=== PATIENT | female | born 1945 | race African-American/Black ===

== ENCOUNTER 2018-06-04 22:53 | Emergency (ER) | payer OTHER ==
[2018-06-04] MEDS ORDERED: ALBUTEROL 2.5 MG/3 ML NEB SOL ONE (23:45)
[2018-06-04] MEDS ORDERED: IPRATROPIUM BROM 0.5MG/2.5ML ONE (23:45)
[2018-06-04] MEDS ORDERED: ONDANSETRON 4 MG/2 ML VIAL ONE (23:45)
[2018-06-05 00:37] LABS: Absolute Lymphocytes (CBC) 2.8 K/uL (0.7-4.9); Absolute Monocytes 0.8 K/uL (0.1-1.3); Absolute Neutrophil 8.6 K/uL (1.8-8.0); Basophils % 0.5 % (0-1.3); Eosinophils % 1.9 % (0-4.4); Hematocrit 26.3 % (36.0-45.0); Lymphocytes % 22.4 % (15.3-44.8); MCH 25.8 pg (27.0-35.0); MCV 79.9 fL (80-100); MPV 9.1 fL (7.6-11.3); Monocytes % 6.1 % (3.3-12.3); RBC Red Blood Cell Count 3.28 M/uL (3.86-4.86)
[2018-06-05 00:38] LABS: Protime INR 1.04
[2018-06-05 00:55] LABS: Albumin 3.6 g/dL (3.4-5.0); Bilirubin Direct 0.1 mg/dL (0-0.2); Bilirubin Total 0.4 mg/dL (0.2-1.0); Magnesium 1.6 mg/dL (1.8-2.4); Protein, Total 7.9 g/dL (6.4-8.2)
[2018-06-05] MEDS ORDERED: NA CHLORIDE 0.9% 1,000 ML ONE (00:58)
[2018-06-05] MEDS ORDERED: POTASSIUM 25 MEQ EFFERV TAB ONE (01:15)
[2018-06-05] MEDS ORDERED: Magnesium Sulfate 2gm IVPB 2 G/50 ML BAG IV ONE (01:16)
[2018-06-05] MEDS ORDERED: NA CHLORIDE 0.9% 100 ML IV ONE (01:35)
[2018-06-05] MEDS ORDERED: MORPHINE 4 MG/ML SYR ONE (01:35)
[2018-06-05] MEDS ORDERED: ONDANSETRON 4 MG/2 ML VIAL ONE (01:37)
--- NOTE | 2018-06-05 03:24 | ER ---
Nurse's Notes [facility] Name: Meredith King Age: 72 yrs Sex: Female : 1945 Arrival Date: 06/04/2018 Time: 22:54 Bed 15 Private MD: Diagnosis: Vomiting;Dehydration;Chronic obstructive pulmonary disease with (acute) exacerbation;Anemia, unspecified;Bladder disorder, unspecified Presentation: 06/04 23:00 Presenting complaint: Patient states: she started feeling sick yesterday and vomited x bb 1 but today she is feeling worse has been vomiting all day and is having chest pain with shortness of breath. Transition of care: patient was not received from another setting of care. Onset of symptoms was June 03, 2018. Risk Assessment: Do you want to hurt yourself or someone else? Patient reports no desire to harm self or others. Initial Sepsis Screen: Does the patient meet any 2 criteria? No. Patient's initial sepsis screen is negative. Does the patient have a suspected source of infection? No. Patient's initial sepsis screen is negative. Care prior to arrival: None. 23:00 Method Of Arrival: Ambulatory bb 23:00 Acuity: ALYSE 3 bb Historical: - Allergies: 23:16 No Known Allergies; bb - Home Meds: 23:16 glyburide 5 mg Oral tab 1 tab 2 times per day [Active]; Bystolic oral oral [Active]; bb unable to obtain full list of medications [Active]; - PMHx: 23:16 Arthritis; Chronic pain; Diabetes - NIDDM; Hypertension; bb - PSHx: 23:16 Cholecystectomy; Knee surgery; Appendectomy; bb - Immunization history:: Adult Immunizations up to date. - Social history:: Smoking status: Patient/guardian denies using tobacco, Patient/guardian denies using alcohol, street drugs. - Ebola Screening: : No symptoms or risks identified at this time. Screenin/19 00:18 Abuse screen: Denies threats or abuse. Nutritional screening: No deficits noted. jd3 Tuberculosis screening: No symptoms or risk factors identified. Fall Risk Ambulatory Aid- None/Bed Rest/Nurse Assist (0 pts). Gait- Normal/Bed Rest/Wheelchair (0 pts) Mental Status- Oriented to own ability (0 pts). Total Fishman Fall Scale indicates No Risk (0-24 pts). Assessment: 06/04 23:17 General: Appears uncomfortable, Behavior is cooperative, appropriate for age. Pain: jd3 Complains of pain in chest Pain does not radiate. Quality of pain is described as pressure, sharp, Pain began 1 day ago. Also complains of nausea, shortness of breath. Neuro: Level of Consciousness is awake, alert, obeys commands, Oriented to person, place, time, situation. Cardiovascular: Heart tones S1 S2 present Capillary refill < 3 seconds Patient's skin is warm and dry. Rhythm is sinus rhythm with PACs. Respiratory: Airway is patent Respiratory effort is even, unlabored, Respiratory pattern is regular, symmetrical, Breath sounds with wheezes bilaterally. GI: Abdomen is round obese, Bowel sounds present X 4 quads. Abd is soft and non tender X 4 quads. Reports nausea, vomiting. : No signs and/or symptoms were reported regarding the genitourinary system. EENT: No signs and/or symptoms were reported regarding the EENT system. Derm: Skin is intact, Skin is dry, Skin is normal, Skin temperature is warm. Musculoskeletal: Circulation, motion, and sensation intact. Range of motion: intact in all extremities. 06/05 00:30 Reassessment: Patient appears in no apparent distress at this time. No changes from jd3 previously documented assessment. Patient and/or family updated on plan of care and expected duration. Pain level reassessed. Patient is alert, oriented x 3, equal unlabored respirations, skin warm/dry/pink. 01:04 Reassessment: Patient appears in no apparent distress at this time. Patient and/or jd3 family updated on plan of care and expected duration. Pain level reassessed. Patient is alert, oriented x 3, equal unlabored respirations, skin warm/dry/pink. pt requesting medication for pain, provider notified, no new orders at this time. 02:00 Reassessment: Patient appears in no apparent distress at this time. Patient and/or jd3 family updated on plan of care and expected duration. Pain level reassessed. Patient is alert, oriented x 3, equal unlabored respirations, skin warm/dry/pink. 03:02 Reassessment: Patient appears in no apparent distress at this time. Patient and/or jd3 family updated on plan of care and expected duration. Pain level reassessed. Patient is alert, oriented x 3, equal unlabored respirations, skin warm/dry/pink. Patient states feeling better. 03:54 Reassessment: Patient appears in no apparent distress at this time. Patient and/or jd3 family updated on plan of care and expected duration. Pain level reassessed. Patient is alert, oriented x 3, equal unlabored respirations, skin warm/dry/pink. pt reported understanding of the discharge instructions, even and steady gait upon discharge. Patient states feeling better. Vital Signs: 06/04 23:16 BP 137 / 44; Pulse 90; Resp 20 S; Temp 98.3(O); Pulse Ox 97% on R/A; Weight 81.65 kg bb (R); Height 5 ft. 4 in. (162.56 cm) (R); Pain 10/10; 06/05 00:30 BP 90 / 67; Pulse 88; Resp 18 S; Pulse Ox 98% on R/A; jd3 01:04 BP 102 / 75; Pulse 85; Resp 18 S; Pulse Ox 100% on R/A; jd3 01:59 BP 138 / 73; Pulse 85; Resp 17 S; Pulse Ox 100% on R/A; jd3 03:55 BP 139 / 96; Pulse 89; Resp 17 S; Pulse Ox 98% on R/A; Pain 0/10; jd3 06/04 23:16 Body Mass Index 30.90 (81.65 kg, 162.56 cm) bb ED Course: 06/04 22:54 Patient arrived in ED. al2 23:01 Ramone Franklin MD is Attending Physician. gs 23:02 Emanuel Valderrama RN is Primary Nurse. jd3 23:06 EKG completed in triage. Results shown to MD. bb 23:13 Triage completed. bb 23:16 Arm band placed on Patient placed in an exam room, on a stretcher, on cardiac cath tech, bb on pulse oximetry. 23:35 XRAY Chest (1 view) In Process Unspecified. EDMS 06/05 00:04 Missed attempt(s): 22 gauge in right hand. Bleeding controlled, band aid applied, bb catheter tip intact. 00:18 Patient has correct armband on for positive identification. Placed in gown. Bed in low jd3 position. Call light in reach. Side rails up X2. kiln operator helper on. Pulse ox on. NIBP on. 00:18 Patient maintains SpO2 saturation greater than 95% on room air. jd3 00:30 Missed attempt(s): 18 gauge in left upper arm. midline - blood return present as long fc as 3 cm of line out. Would not thread in all the way. Line removed.. Bleeding controlled, band aid applied, catheter tip intact. 00:45 Inserted saline lock: 18 gauge in left antecubital area, using aseptic technique. fc 02:15 CT Stone Protocol In Process Unspecified. EDMS 03:46 No provider procedures requiring assistance completed. jd3 03:56 IV discontinued, intact, bleeding controlled, No redness/swelling at site. Pressure jd3 dressing applied. Administered Medications: 06/04 23:45 Drug: Albuterol 2.5 mg Route: Inhalation; jd3 06/05 01:19 Follow up: Response: No adverse reaction jd3 06/04 23:45 Drug: AtroVENT Aerosol 0.5 mg Route: Inhalation; jd3 06/05 01:19 Follow up: Response: No adverse reaction jd3 00:35 Drug: Zofran 4 mg Route: IVP; Site: left antecubital; jd3 01:01 Follow up: Response: No adverse reaction jd3 01:00 Drug: NS 0.9% 1000 ml Route: IV; Rate: 1 bolus; Site: left antecubital; jd3 03:46 Follow up: Response: No adverse reaction; IV Status: Completed infusion; IV Intake: jd3 1000ml 01:19 Drug: Magnesium Sulfate 2 grams Route: IVPB; Infused Over: 2 hrs; Site: left jd3 antecubital; 03:46 Follow up: Response: No adverse reaction; IV Status: Completed infusion jd3 01:19 Drug: Potassium Effervescent Tablet 50 mEq Route: PO; jd3 03:45 Follow up: Response: No adverse reaction jd3 01:43 Drug: morphine 2 mg Route: IVP; Site: left antecubital; jd3 03:45 Follow up: Response: No adverse reaction jd3 01:43 Drug: Zofran 4 mg Route: IVP; Site: left antecubital; jd3 03:45 Follow up: Response: No adverse reaction jd3 Intake: 03:46 IV: 1000ml; Total: 1000ml. jd3 Outcome: 03:23 Discharge ordered by . gs 03:55 Discharged to home ambulatory. jd3 03:55 Condition: stable 03:55 Discharge instructions given to patient, Instructed on discharge instructions, follow up and referral plans. medication usage, Demonstrated understanding of instructions, follow-up care, medications, Prescriptions given X 2. 04:03 Patient left the ED. jd3 Signatures: Dispatcher [employer] EDMS Colleen Matias RN RN fc Ballard, Brenda, RN RN bb Starr, Gregory, MD MD gs Davies, Jonathon, RN RN jd3 Love, Capri jackson
--- NOTE | 2018-06-05 03:24 | EDPHYS ---
Physician Documentation [facility] Name: Meredith King Age: 72 yrs Sex: Female : 1945 Arrival Date: 06/04/2018 Time: 22:54 Bed 15 Private MD: ED Physician Ramone Franklin HPI: 06/05 01:51 This 72 yrs old Black Female presents to ER via Ambulatory with complaints of Chest gs Pain, Nausea/Vomiting, Headache. 01:51 The patient or guardian reports chest pain that is located primarily in the epigastric gs area, anterior chest wall. Onset: yesterday. Associated signs and symptoms: Pertinent positives: vomiting. The chest pain is described as a pressure. Duration: The patient or guardian reports multiple episodes, that are intermittent, that wax and wane, with no pattern. Modifying factors: The symptoms are alleviated by nothing. the symptoms are aggravated by nothing. Severity of pain: At its worst the pain was moderate in the emergency department the pain has improved mildly. The patient has experienced similar episodes in the past, a few times. Historical: - Allergies: 06/04 23:16 No Known Allergies; bb - Home Meds: 23:16 glyburide 5 mg Oral tab 1 tab 2 times per day [Active]; Bystolic oral oral [Active]; bb unable to obtain full list of medications [Active]; - PMHx: 23:16 Arthritis; Chronic pain; Diabetes - NIDDM; Hypertension; bb - PSHx: 23:16 Cholecystectomy; Knee surgery; Appendectomy; bb - Immunization history:: Adult Immunizations up to date. - Social history:: Smoking status: Patient/guardian denies using tobacco, Patient/guardian denies using alcohol, street drugs. - Ebola Screening: : No symptoms or risks identified at this time. ROS: 06/05 01:51 All other systems are negative. gs Exam: 01:51 Head/Face: Normocephalic, atraumatic. Eyes: Pupils equal round and reactive to light, gs extra-ocular motions intact. Lids and lashes normal. Conjunctiva and sclera are non-icteric and not injected. Cornea within normal limits. Periorbital areas with no swelling, redness, or edema. ENT: Nares patent. No nasal discharge, no septal abnormalities noted. Tympanic membranes are normal and external auditory canals are clear. Oropharynx with no redness, swelling, or masses, exudates, or evidence of obstruction, uvula midline. Mucous membranes moist. Neck: Trachea midline, no thyromegaly or masses palpated, and no cervical lymphadenopathy. Supple, full range of motion without nuchal rigidity, or vertebral point tenderness. No Meningismus. Chest/axilla: Normal chest wall appearance and motion. Nontender with no deformity. No lesions are appreciated. Cardiovascular: Regular rate and rhythm with a normal S1 and S2. No gallops, murmurs, or rubs. Normal PMI, no JVD. No pulse deficits. Skin: Warm, dry with normal turgor. Normal color with no rashes, no lesions, and no evidence of cellulitis. MS/ Extremity: Pulses equal, no cyanosis. Neurovascular intact. Full, normal range of motion. Neuro: Awake and alert, GCS 15, oriented to person, place, time, and situation. Cranial nerves II-XII grossly intact. Motor strength 5/5 in all extremities. Sensory grossly intact. Cerebellar exam normal. Normal gait. 01:51 Constitutional: The patient appears alert, awake. 01:51 Respiratory: Exam negative for the patient does not display signs of respiratory distress, Respirations: normal, Breath sounds: rhonchi, that are mild, are scattered. 01:51 Abdomen/GI: Palpation: mild abdominal tenderness, in all quadrants. Vital Signs: 06/04 23:16 BP 137 / 44; Pulse 90; Resp 20 S; Temp 98.3(O); Pulse Ox 97% on R/A; Weight 81.65 kg bb (R); Height 5 ft. 4 in. (162.56 cm) (R); Pain 10/10; 06/05 00:30 BP 90 / 67; Pulse 88; Resp 18 S; Pulse Ox 98% on R/A; jd3 01:04 BP 102 / 75; Pulse 85; Resp 18 S; Pulse Ox 100% on R/A; jd3 01:59 BP 138 / 73; Pulse 85; Resp 17 S; Pulse Ox 100% on R/A; jd3 03:55 BP 139 / 96; Pulse 89; Resp 17 S; Pulse Ox 98% on R/A; Pain 0/10; jd3 06/04 23:16 Body Mass Index 30.90 (81.65 kg, 162.56 cm) bb MDM: 06/04 23:13 Patient medically screened. 06/05 01:51 Differential diagnosis: cholecystitis, pneumonia, pancreatitis. Data reviewed: vital gs signs, nurses notes. 03:16 Response to treatment: the patient's symptoms have markedly improved after treatment, gs the patient's condition has returned to base line, and as a result, I will discharge patient. 03:44 ED course: pt states she has bladder problems and is seeing a doctor for it is able to gs void still has significant residual doesn't want johnston will follow up with person she sees for this problem. 06/04 23:15 Order name: Basic Metabolic Panel; Complete Time: 01:09 06/04 23:15 Order name: CBC with Diff; Complete Time: 00:41 06/04 23:15 Order name: LFT's; Complete Time: 01:09 06/04 23:15 Order name: Magnesium; Complete Time: 01:09 06/04 23:15 Order name: NT PRO-BNP; Complete Time: 01:09 06/04 23:15 Order name: PT-INR; Complete Time: 00:41 06/04 23:15 Order name: Troponin (emerg Dept Use Only); Complete Time: 01:09 06/04 23:15 Order name: XRAY Chest (1 view) 06/04 23:15 Order name: Lipase; Complete Time: 01:09 06/05 01:30 Order name: CT Stone Protocol 06/05 03:36 Order name: Urine Dipstick--Ancillary (enter results); Complete Time: 03:44 ks 06/04 23:15 Order name: EKG; Complete Time: 23:16 06/04 23:15 Order name: Cardiac monitoring; Complete Time: 23:39 06/04 23:15 Order name: EKG - Nurse/Tech; Complete Time: 23:39 06/04 23:15 Order name: IV Saline Lock; Complete Time: 00:43 06/04 23:15 Order name: Labs collected and sent; Complete Time: 00:35 06/04 23:15 Order name: O2 Per Protocol; Complete Time: 23:39 06/04 23:15 Order name: O2 Sat Monitoring; Complete Time: 23:39 06/04 23:15 Order name: Urine Dipstick-Ancillary (obtain specimen); Complete Time: 03:54 gs Administered Medications: 06/04 23:45 Drug: Albuterol 2.5 mg Route: Inhalation; jd3 06/05 01:19 Follow up: Response: No adverse reaction jd3 06/04 23:45 Drug: AtroVENT Aerosol 0.5 mg Route: Inhalation; jd3 06/05 01:19 Follow up: Response: No adverse reaction jd3 00:35 Drug: Zofran 4 mg Route: IVP; Site: left antecubital; jd3 01:01 Follow up: Response: No adverse reaction jd3 01:00 Drug: NS 0.9% 1000 ml Route: IV; Rate: 1 bolus; Site: left antecubital; jd3 03:46 Follow up: Response: No adverse reaction; IV Status: Completed infusion; IV Intake: jd3 1000ml 01:19 Drug: Magnesium Sulfate 2 grams Route: IVPB; Infused Over: 2 hrs; Site: left [facility] antecubital; 03:46 Follow up: Response: No adverse reaction; IV Status: Completed infusion jd3 :19 Drug: Potassium Effervescent Tablet 50 mEq Route: PO; jd3 03:45 Follow up: Response: No adverse reaction jd3 01:43 Drug: morphine 2 mg Route: IVP; Site: left antecubital; jd3 03:45 Follow up: Response: No adverse reaction jd3 01:43 Drug: Zofran 4 mg Route: IVP; Site: left antecubital; jd3 03:45 Follow up: Response: No adverse reaction [facility] Disposition: 06/05/18 03:23 Discharged to Home. Impression: Vomiting, Dehydration, Chronic obstructive pulmonary disease with (acute) exacerbation, Anemia, unspecified, Bladder disorder, unspecified. - Condition is Stable. - Discharge Instructions: Iron Deficiency Anemia, Adult, Chronic Obstructive Pulmonary Disease, Dehydration, Adult, Nausea and Vomiting, Adult. - Prescriptions for Zofran 4 mg Oral Tablet - take 1 tablet by ORAL route every 12 hours As needed; 6 tablet. Albuterol Sulfate 2.5 mg /3 mL (0.083 %) Inhalation Solution for Nebulization - inhale 1 unit by NEBULIZATION route every 8 hours As needed; 1 box. - Medication Reconciliation Form, Thank You Letter, Antibiotic Education, Prescription Opioid Use form. - Follow up: Private Physician; When: 2 - 3 days; Reason: Re-evaluation by your physician. Signatures: Dispatcher [employer] EDIbis Carmona RN RN bb Starr, Gregory, MD MD gs Davies, Jonathon, RN RN jd3 Corrections: (The following items were deleted from the chart) 03:26 03:23 06/05/2018 03:23 Discharged to Home. Impression: Vomiting; Dehydration; Chronic gs obstructive pulmonary disease with (acute) exacerbation. Condition is Stable. Forms are Medication Reconciliation Form, Thank You Letter, Antibiotic Education, Prescription Opioid Use. Follow up: Private Physician; When: 2 - 3 days; Reason: Re-evaluation by your physician. 03:46 03:26 06/05/2018 03:23 Discharged to Home. Impression: Vomiting; Dehydration; Chronic gs obstructive pulmonary disease with (acute) exacerbation; Anemia, unspecified. Condition is Stable. Discharge Instructions: Chronic Obstructive Pulmonary Disease, Dehydration, Adult, Nausea and Vomiting, Adult. Prescriptions for Zofran 4 mg Oral Tablet - take 1 tablet by ORAL route every 12 hours As needed; 6 tablet, Albuterol Sulfate 2.5 mg /3 mL (0.083 %) Inhalation Solution for Nebulization - inhale 1 unit by NEBULIZATION route every 8 hours As needed; 1 box. and Forms are Medication Reconciliation Form, Thank You Letter, Antibiotic Education, Prescription Opioid Use. Follow up: Private Physician; When: 2 - 3 days; Reason: Re-evaluation by your physician. 04:03 03:46 06/05/2018 03:23 Discharged to Home. Impression: Vomiting; Dehydration; Chronic jd3 obstructive pulmonary disease with (acute) exacerbation; Anemia, unspecified; Bladder disorder, unspecified. Condition is Stable. Discharge Instructions: Chronic Obstructive Pulmonary Disease, Dehydration, Adult, Nausea and Vomiting, Adult, Iron Deficiency Anemia, Adult. Prescriptions for Zofran 4 mg Oral Tablet - take 1 tablet by ORAL route every 12 hours As needed; 6 tablet, Albuterol Sulfate 2.5 mg /3 mL (0.083 %) Inhalation Solution for Nebulization - inhale 1 unit by NEBULIZATION route every 8 hours As needed; 1 box. and Forms are Medication Reconciliation Form, Thank You Letter, Antibiotic Education, Prescription Opioid Use. Follow up: Private Physician; When: 2 - 3 days; Reason: Re-evaluation by your physician.
[2018-06-05 03:43] LABS: Urine Blood NEGATIVE (NEG); Urine Glucose NEGATIVE (NEG); Urine Protein NEGATIVE (NEG)
[2018-06-05 04:14] VITALS: TEMP 98.3
[2018-06-05 04:18] VITALS: BP 139/96; O2SAT 98
--- NOTE | 2018-06-05 08:17 | RAD REPORT ---
EXAM DESCRIPTION: CT - Stone Protocol - 06/05/2018 6:45 am CLINICAL HISTORY: Abdominal pain. Nausea and vomiting. Surgery date 6+ months appendectomy COMPARISON: 2014 TECHNIQUE: Computed axial tomography of the abdomen pelvis was obtained without oral or IV contrast. Lack of IV and oral contrast limits evaluation of solid organs, bowel, and vessels. Coronal reformat ernestina images were obtained and reviewed. A preliminary report was generated by [employer] and r amandaiewed prior to this dictation All CT scans are performed using dose optimization technique as appropriate and may include automated exposure control or mA/KV adjustment according to patient size. FINDINGS: A renal calculus is not seen. An ureteral calculus is not noted. A bladder calculus is not present. The bladder is distended. 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 A moderate hiatal hernia is seen A large amount stool is present throughout the colon The liver, spleen, pancreas and adrenals appear grossly normal There is no evidence of diverticulitis. Degenerative changes involve the lumbar spine. IMPRESSION: Negative for a genitourinary calculus Bladder distention Large amount stool throughout colon
--- NOTE | 2018-06-05 08:31 | RAD REPORT ---
EXAM DESCRIPTION: Alexandro Single View06/04/2018 11:36 pm CLINICAL HISTORY: Chest pain COMPARISON: December 2016 FINDINGS: The lungs appear clear of acute infiltrate. The heart is mildly enlarged IMPRESSION: No acute abnormalities displayed
--- NOTE | 2018-06-05 13:53 | EKG ---
Test Date: 2018-06-04 Test Time: 23:06:25 Straight Knife Cutter Machine: KAREY MEASUREMENT RESULTS: Intervals: Rate: 89 OK: 160 QRSD: 76 QT: 372 QTc: 452 [place]: P: 60 OK: 160 QRS: 45 T: 38 INTERPRETIVE STATEMENTS: Sinus rhythm with premature atrial complexes Possible Left atrial enlargement Borderline ECG Compared to ECG 01/10/2017 21:35:27 Atrial premature complex(es) now present Electronically Signed On 06-05-18 13:51:52 CDT by Bernard Carrasco
== END 2018-06-05 04:03 | disposition home or self-care (01) ==
LOC: ER 22:53
DX: E86.0 Dehydration (principal); J44.1 Chronic obstructive pulmonary disease with (acute) exacerbation; D64.9 Anemia, unspecified; N32.9 Bladder disorder, unspecified; I10 Essential (primary) hypertension; E11.9 Type 2 diabetes mellitus without complications
CPT/HCPCS: 36415; 71045; 74176; 76377; 80048; 80076; 81003; 83690; 83735; 83880; 84484; 85025; 85610; 93005; 96365; 96366; 96375; 99285; J2405 ×2; J3475; J7030; 96361

== ENCOUNTER 2019-02-06 12:09 | Observation (INO) | payer OTHER ==
[2019-02-06] MEDS ORDERED: MORPHINE 2 MG/ML SYR ONE (13:39)
[2019-02-06] MEDS ORDERED: ONDANSETRON 4 MG/2 ML VIAL ONE (13:39)
[2019-02-06] MEDS ORDERED: NA CHLORIDE 0.9% 1,000 ML ONE (13:39)
[2019-02-06] MEDS ORDERED: FAMOTIDINE 20 MG/2 ML VIAL IV ONE (13:39)
--- NOTE | 2019-02-06 14:01 | RAD REPORT ---
EXAM DESCRIPTION: CT - Head Brain Wo Cont - 02/06/2019 1:36 pm CLINICAL HISTORY: Persistent headache, low hemoglobin, hypertension COMPARISON: CT study November 2012 TECHNIQUE: Axial 5 mm thick images of the head were obtained without IV contrast. All CT scans are performed using dose optimization technique as appropriate and may include automated exposure control or mA/KV adjustment according to patient size. FINDINGS: No intracranial hemorrhage, mass, edema or shift of mid-line structures. No acute infarcti on changes seen. No abnormal extra-axial fluid collections. Ventricles are normal. Mild atrophy and c hronic ischemic changes are present matching the comparison. Arterial and physiologic calcifications are present. Mastoid air cells and visualized portions of the paranasal sinuses are clear. No acute bony findings. IMPRESSION: Negative non-contrast CT head examination for acute finding Mild atrophy and chronic ischemic change not significantly different from 2012.
--- NOTE | 2019-02-06 14:19 | RAD REPORT ---
EXAM DESCRIPTION: RAD - Chest Single View - 02/06/2019 2:11 pm CLINICAL HISTORY: Cough and congestion COMPARISON: May 2018 TECHNIQUE: AP portable chest image was obtained 1405 hours . FINDINGS: Lung volumes are low. No peripheral mass or consolidation. Interstitial markings are mildl y prominent but not clearly different. Heart and vasculature are normal. No measurable pleural effusi on and no pneumothorax. No acute bony abnormality seen. No acute aortic findings suspected. IMPRESSION: No acute cardiopulmonary process. Mild chronic interstitial lung disease matches comparison.
[2019-02-06 15:13] LABS: Protime INR 1.1
[2019-02-06 15:21] LABS: Absolute Lymphocytes (CBC) 2.8 K/uL (0.7-4.9); Absolute Monocytes 0.7 K/uL (0.1-1.3); Absolute Neutrophil 5.9 K/uL (1.8-8.0); Eosinophils % 2.6 % (0-4.4); Hematocrit 24.7 % (36.0-45.0); Lymphocytes % 28.4 % (15.3-44.8); MPV 8.9 fL (7.6-11.3); Monocytes % 7.5 % (3.3-12.3); RBC Red Blood Cell Count 3.15 M/uL (3.86-4.86)
[2019-02-06 15:38] LABS: ALT/SGPT 31 U/L (12-78); AST/SGOT 21 U/L (15-37); Albumin 3.7 g/dL (3.4-5.0); Alkaline Phosphatase 76 U/L (45-117); BUN Blood Urea Nitrogen 26 mg/dL (7-18); Bicarbonate 25 mmol/L (21-32); Bilirubin Direct 0.1 mg/dL (0-0.2); Bilirubin Total 0.4 mg/dL (0.2-1.0); Glucose Level 57 mg/dL (74-106); Lipase 39 U/L (73-393); Magnesium 1.9 mg/dL (1.8-2.4); NT PRO-BNP 303 pg/mL (<450); Potassium 3.8 mmol/L (3.5-5.1); Protein, Total 8.3 g/dL (6.4-8.2); Sodium Level 137 mmol/L (136-145); Troponin (Emerg Dept Use Only) < 0.02 ng/mL (0.0-0.045)
--- NOTE | 2019-02-06 15:52 | ER ---
Nurse's Notes [facility] Name: Meredith King Age: 73 yrs Sex: Female : 1945 Arrival Date: 02/06/2019 Time: 12:11 Bed 8 Private MD: Alan Liao Diagnosis: Weakness;Anemia, unspecified-microcytic, hypochromic, symptomatic;Obesity, unspecified;Type 2 diabetes mellitus;Hypoglycemia, unspecified Presentation: 02/06 12:25 Presenting complaint: Patient states: Dr. Liao did annual labs and sent me here because my Hemoglobin was 8. they said that was bad. I have had a headache for weeks. Transition of care: patient was not received from another setting of care. Onset of symptoms was December 2018. Risk Assessment: Do you want to hurt yourself or someone else? Patient reports no desire to harm self or others. Initial Sepsis Screen: Does the patient meet any 2 criteria? No. Patient's initial sepsis screen is negative. Does the patient have a suspected source of infection? No. Patient's initial sepsis screen is negative. Care prior to arrival: None. 12:25 Method Of Arrival: Wheelchair 12:25 Acuity: ALYSE 3 Triage Assessment: 12:27 General: Appears in no apparent distress. uncomfortable, Behavior is calm, cooperative, ch appropriate for age. Pain: Complains of pain in head Pain currently is 8 out of 10 on a pain scale. Neuro: Level of Consciousness is awake, alert, obeys commands, Oriented to person, place, time, situation. Historical: - Allergies: 12:27 No Known Drug Allergies; - Home Meds: 12:57 tramadol 50 mg Oral tab 2 tabs twice a day [Active]; acetaminophen-codeine 300-30 mg tw2 Oral tab 1 tab twice a day [Active]; amlodipine 10 mg tab 1 tab once daily [Active]; Bystolic Oral [Active]; cyclobenzaprine 10 mg Oral tab 1 tab 2 times per day [Active]; gabapentin 600 mg Oral tab 1 tab twice a day [Active]; glyburide 5 mg Oral tab 1 tab 2 times per day [Active]; lorazepam 0.5 mg Oral tab 1 tab 2 times per day [Active]; potassium chloride 10 mEq Oral cpER 1 cap once daily [Active]; promethazine 25 mg Oral tab 1 tab 2 times per day [Active]; - PMHx: 12:27 Arthritis; Diabetes - NIDDM; Chronic pain; Hypertension; "slight case of breathing ch issues,"; - PSHx: 12:27 Cholecystectomy; Knee surgery; Appendectomy; ch - Immunization history:: Adult Immunizations up to date. - Social history:: Smoking status: Patient/guardian denies using tobacco. - Ebola Screening: : Patient negative for fever greater than or equal to 101.5 degrees Fahrenheit, and additional compatible Ebola Virus Disease symptoms Patient denies exposure to infectious person Patient denies travel to an Ebola-affected area in the 21 days before illness onset No symptoms or risks identified at this time. Screenin:54 Abuse screen: Denies threats or abuse. Nutritional screening: No deficits noted. tw2 Tuberculosis screening: No symptoms or risk factors identified. Fall Risk Secondary diagnosis (15 points) impaired mobility. Assessment: 13:00 General: Appears in no apparent distress. Behavior is calm, cooperative. Pain: Pain hb currently is 8 out of 10 on a pain scale. Neuro: Level of Consciousness is awake, alert, obeys commands, Oriented to person, place, time, situation. Cardiovascular: Capillary refill < 3 seconds Patient's skin is warm and dry. Respiratory: Airway is patent Respiratory effort is even, unlabored, Respiratory pattern is regular, symmetrical, Breath sounds are clear bilaterally. GI: No signs and/or symptoms were reported involving the gastrointestinal system. : No signs and/or symptoms were reported regarding the genitourinary system. EENT: No signs and/or symptoms were reported regarding the EENT system. Derm: Skin is intact, is healthy with good turgor. Musculoskeletal: No signs and/or symptoms reported regarding the musculoskeletal system. 14:00 Reassessment: Patient appears in no apparent distress at this time. No changes from hb previously documented assessment. Patient and/or family updated on plan of care and expected duration. Pain level reassessed. Patient is alert, oriented x 3, equal unlabored respirations, skin warm/dry/pink. 14:38 Reassessment: Unable to establish PIV access, Dr. Nunez notified. hb 14:40 Reassessment: Dr. Nunez at bedside for PIV placement. 18g LEFT EJ. hb 15:30 Reassessment: Patient appears in no apparent distress at this time. Patient and/or hb family updated on plan of care and expected duration. Pain level reassessed. Patient is alert, oriented x 3, equal unlabored respirations, skin warm/dry/pink. 16:30 Reassessment: Patient appears in no apparent distress at this time. No changes from previously documented assessment. Patient and/or family updated on plan of care and expected duration. Pain level reassessed. Patient is alert, oriented x 3, equal unlabored respirations, skin warm/dry/pink. Admission ordered, awaiting room assignment at this time. Vital Signs: 12:27 BP 145 / 56; Pulse 65; Resp 18; Temp 98.7; Pulse Ox 99% on R/A; Weight 92.99 kg; Height 5 ft. 4 in. (162.56 cm); Pain 9/10; 14:00 BP 156 / 66; Pulse 64; Resp 15; Pulse Ox 100% on R/A; hb 15:30 BP 165 / 59; Pulse 65; Resp 16; Pulse Ox 97% on R/A; hb 12:27 Body Mass Index 35.19 (92.99 kg, 162.56 cm) ED Course: 12:11 Patient arrived in ED. rg4 12:11 Alan Liao MD is Private Physician. rg4 12:26 Triage completed. 12:27 Arm band placed on left wrist. Patient placed in waiting room. 12:52 Kenny Nunez MD is Attending Physician. [facility] 12:53 Bed in low position. Call light in reach. quality assurance monitor chassis on. Pulse ox on. NIBP on. tw2 13:36 CT completed. Patient tolerated procedure well. Patient moved to CT. Patient moved back wy from CT. 13:36 CT Head Brain wo Cont In Process Unspecified. EDMS 13:37 Kaycee Banks, RN is Primary Nurse. tw2 13:37 EKG done, by agricultural technical officer. reviewed by Kenny Nunez MD. sm3 13:48 Missed attempt(s): 22 gauge in right antecubital area. Bleeding controlled, band aid tw2 applied, catheter tip intact. Missed attempt(s): 22 gauge in right antecubital area. 13:58 Missed attempt(s): 22 gauge in left antecubital area. Bleeding controlled, band aid hb applied, catheter tip intact. 14:02 Missed attempt(s): 22 gauge in left antecubital area. Bleeding controlled, band aid hb applied, catheter tip intact. 14:11 XRAY Chest (1 view) In Process Unspecified. EDMS 14:12 X-ray completed. Portable x-ray completed in exam room. Patient tolerated procedure jb2 well. 14:34 Missed attempt(s): 22 gauge in left antecubital area. Per ANAID Dudley. Missed attempt(s): tw2 22 gauge in left forearm. per ANAID Dudley Dr. notified that we have no blood at this time and not able to establish IV access.. Bleeding controlled, band aid applied, catheter tip intact. 14:35 Missed attempt(s): 22 gauge in right antecubital area. Bleeding controlled, band aid iw applied, catheter tip intact. 15:50 Carlos Melendez DO is Referral Physician. june 15:53 Carlos Melendez DO is Hospitalizing Provider. june 17:06 No provider procedures requiring assistance completed. Patient admitted, IV remains in hb place. Administered Medications: 15:06 Drug: morphine 2 mg Route: IVP; Site: left jugular; hb 15:34 Follow up: Response: No adverse reaction tw2 15:07 Drug: NS 0.9% 1000 ml Route: IV; Rate: 125 ml/hr; Site: left jugular; hb 17:20 Follow up: IV Status: Infusion continued upon admission tw2 15:07 Drug: Zofran 4 mg Route: IVP; Site: left jugular; hb 15:34 Follow up: Response: No adverse reaction tw2 15:07 Drug: Pepcid 20 mg Route: PO; hb 15:34 Follow up: Response: No adverse reaction tw2 15:56 Drug: D50W 25 ml Route: IVP; Site: left jugular; hb 16:30 Follow up: Response: No adverse reaction; Blood pressure is elevated hb Point of Care Testing: Blood Glucose: 16:35 Blood Glucose: 89 mg/dL; tw2 Ranges: Outcome: 15:51 Discharge ordered by . june 15:58 Decision to Hospitalize by Provider. june 17:06 Admitted to Tele accompanied by tech, via wheelchair, room 411, with chart, Report hb called to Sunshine WORRELL 17:06 Condition: stable 17:06 Instructed on the need for admit, Demonstrated understanding of instructions. 17:32 Patient left the ED. hb Signatures: Dispatcher [employer] Radha Paz, RN RN Kenny Watkins MD MD cha Buechter, Jesse jb2 Octavia Graham RN RN iw Baxter, Heather, RN RN hb Wise, Tara, RN RN 2 Razia Mendez 4 Nicanor Chiu Shakira 3
--- NOTE | 2019-02-06 15:52 | EDPHYS ---
Physician Documentation [facility] Name: Meredith King Age: 73 yrs Sex: Female : 1945 Arrival Date: 02/06/2019 Time: 12:11 Bed 8 Private MD: Alan Liao ED Physician Kenny Nunez HPI: 02/06 13:26 This 73 yrs old Black Female presents to ER via Wheelchair with complaints of Abnormal june Lab Results. 13:26 The patient presents with anemia, no black stools. Onset: The symptoms/episode june began/occurred 3 day(s) ago. The patient presents to the emergency department none. Onset: The symptoms/episode began/occurred 3 day(s) ago. Abdominal pain: none is appreciated. Modifying factors: The symptoms are alleviated by nothing, the symptoms are aggravated by nothing. Historical: - Allergies: 12:27 No Known Drug Allergies; ch - Home Meds: 12:57 tramadol 50 mg Oral tab 2 tabs twice a day [Active]; acetaminophen-codeine 300-30 mg tw2 Oral tab 1 tab twice a day [Active]; amlodipine 10 mg tab 1 tab once daily [Active]; Bystolic Oral [Active]; cyclobenzaprine 10 mg Oral tab 1 tab 2 times per day [Active]; gabapentin 600 mg Oral tab 1 tab twice a day [Active]; glyburide 5 mg Oral tab 1 tab 2 times per day [Active]; lorazepam 0.5 mg Oral tab 1 tab 2 times per day [Active]; potassium chloride 10 mEq Oral cpER 1 cap once daily [Active]; promethazine 25 mg Oral tab 1 tab 2 times per day [Active]; - PMHx: 12:27 Arthritis; Diabetes - NIDDM; Chronic pain; Hypertension; "slight case of breathing ch issues,"; - PSHx: 12:27 Cholecystectomy; Knee surgery; Appendectomy; ch - Immunization history:: Adult Immunizations up to date. - Social history:: Smoking status: Patient/guardian denies using tobacco. - Ebola Screening: : Patient negative for fever greater than or equal to 101.5 degrees Fahrenheit, and additional compatible Ebola Virus Disease symptoms Patient denies exposure to infectious person Patient denies travel to an Ebola-affected area in the 21 days before illness onset No symptoms or risks identified at this time. ROS: 13:27 Constitutional: Negative for fever, chills, and weight loss, Eyes: Negative for injury, june pain, redness, and discharge, ENT: Negative for injury, pain, and discharge, Neck: Negative for injury, pain, and swelling, Cardiovascular: Negative for chest pain, palpitations, and edema, Respiratory: Negative for shortness of breath, cough, wheezing, and pleuritic chest pain, Abdomen/GI: Negative for abdominal pain, nausea, vomiting, diarrhea, and constipation, Back: Negative for injury and pain, : Negative for injury, bleeding, discharge, and swelling, MS/Extremity: Negative for injury and deformity, Skin: Negative for injury, rash, and discoloration, Psych: Negative for depression, anxiety, suicide ideation, homicidal ideation, and hallucinations, Allergy/Immunology: Negative for hives, rash, and allergies, Endocrine: Negative for neck swelling, polydipsia, polyuria, polyphagia, and marked weight changes, Hematologic/Lymphatic: Negative for swollen nodes, abnormal bleeding, and unusual bruising. 13:27 MS/extremity: Positive for 13:27 Neuro: Positive for headache. Exam: 13:27 Constitutional: This is a well developed, well nourished patient who is awake, alert, june and in no acute distress. Head/Face: Normocephalic, atraumatic. Eyes: Pupils equal round and reactive to light, extra-ocular motions intact. Lids and lashes normal. Conjunctiva and sclera are non-icteric and not injected. Cornea within normal limits. Periorbital areas with no swelling, redness, or edema. ENT: Nares patent. No nasal discharge, no septal abnormalities noted. Tympanic membranes are normal and external auditory canals are clear. Oropharynx with no redness, swelling, or masses, exudates, or evidence of obstruction, uvula midline. Mucous membranes moist. Neck: Trachea midline, no thyromegaly or masses palpated, and no cervical lymphadenopathy. Supple, full range of motion without nuchal rigidity, or vertebral point tenderness. No Meningismus. Chest/axilla: Normal chest wall appearance and motion. Nontender with no deformity. No lesions are appreciated. Cardiovascular: Regular rate and rhythm with a normal S1 and S2. No gallops, murmurs, or rubs. Normal PMI, no JVD. No pulse deficits. Respiratory: Lungs have equal breath sounds bilaterally, clear to auscultation and percussion. No rales, rhonchi or wheezes noted. No increased work of breathing, no retractions or nasal flaring. Abdomen/GI: Soft, non-tender, with normal bowel sounds. No distension or tympany. No guarding or rebound. No evidence of tenderness throughout. Back: No spinal tenderness. No costovertebral tenderness. Full range of motion. Skin: Warm, dry with normal turgor. Normal color with no rashes, no lesions, and no evidence of cellulitis. MS/ Extremity: Pulses equal, no cyanosis. Neurovascular intact. Full, normal range of motion. Neuro: Awake and alert, GCS 15, oriented to person, place, time, and situation. Cranial nerves II-XII grossly intact. Motor strength 5/5 in all extremities. Sensory grossly intact. Cerebellar exam normal. Normal gait. Psych: Awake, alert, with orientation to person, place and time. Behavior, mood, and affect are within normal limits. 13:27 Neck: ROM/movement: Meningeal signs: are not present, Kernig's sign is negative, Brudzinski's sign is negative. 13:27 Abdomen/GI: Bowel sounds: normal, active, Palpation: abdomen is soft and non-tender, soft, nontender, Rectal exam: is unremarkable, rectal tone normal, Stool: guaiac negative, hemorrhoid(s), are not appreciated, mass, is not appreciated, swelling, is not appreciated, tenderness, is not appreciated, fecal impaction, is not appreciated. Vital Signs: 12:27 BP 145 / 56; Pulse 65; Resp 18; Temp 98.7; Pulse Ox 99% on R/A; Weight 92.99 kg; Height ch 5 ft. 4 in. (162.56 cm); Pain 9/10; 14:00 BP 156 / 66; Pulse 64; Resp 15; Pulse Ox 100% on R/A; hb 15:30 BP 165 / 59; Pulse 65; Resp 16; Pulse Ox 97% on R/A; hb 12:27 Body Mass Index 35.19 (92.99 kg, 162.56 cm) Procedures: 15:10 Peripheral line: by aseptic technique a peripheral line was placed in the left external june jugular vein. [facility]: 12:52 Patient medically screened. [facility] 13:30 Data reviewed: vital signs, nurses notes, lab test result(s), EKG, radiologic studies. [facility] 02/06 13:24 Order name: Basic Metabolic Panel; Complete Time: 15:40 [facility] 02/06 13:24 Order name: CBC with Diff; Complete Time: 15:40 [facility] 02/06 13:24 Order name: LFT's; Complete Time: 15:40 [facility] 02/06 13:24 Order name: Magnesium; Complete Time: 15:40 [facility] 02/06 13:24 Order name: NT PRO-BNP; Complete Time: 15:40 [facility] 02/06 13:24 Order name: PT-INR; Complete Time: 15:40 [facility] 02/06 13:24 Order name: Troponin (emerg Dept Use Only); Complete Time: 15:40 [facility] 02/06 13:24 Order name: Urine Culture [facility] 02/06 13:24 Order name: Type And Screen [facility] 02/06 13:25 Order name: Lipase; Complete Time: 15:40 [facility] 02/06 15:41 Order name: Folic Acid,Serum (folate) [facility] 02/06 15:41 Order name: B12 [facility] 02/06 15:41 Order name: Retic Count [facility] 02/06 15:41 Order name: Ferritin [facility] 02/06 13:24 Order name: XRAY Chest (1 view); Complete Time: 15:40 [facility] 02/06 13:24 Order name: EKG; Complete Time: 13:25 [facility] 02/06 13:24 Order name: Cardiac monitoring; Complete Time: 13:28 [facility] 02/06 13:24 Order name: EKG - Nurse/Tech; Complete Time: 13:28 [facility] 02/06 13:24 Order name: IV Saline Lock; Complete Time: 15:07 [facility] 02/06 13:24 Order name: CT Head Brain wo Cont; Complete Time: 14:12 [facility] 02/06 15:41 Order name: TIBC [facility] 02/06 15:41 Order name: Iron Level [facility] 02/06 15:57 Order name: Packed RBC Leukored -1 EDMS 02/06 16:24 Order name: Urine Dipstick--Ancillary (enter results) 02/06 13:24 Order name: Labs collected and sent; Complete Time: 15:07 [facility] 02/06 13:24 Order name: O2 Per Protocol; Complete Time: 13:28 [facility] 02/06 13:24 Order name: O2 Sat Monitoring; Complete Time: 13:28 [facility] 02/06 13:24 Order name: Urine Dipstick-Ancillary (obtain specimen); Complete Time: 16:14 [facility] Administered Medications: 15:06 Drug: morphine 2 mg Route: IVP; Site: left jugular; hb 15:34 Follow up: Response: No adverse reaction tw2 15:07 Drug: NS 0.9% 1000 ml Route: IV; Rate: 125 ml/hr; Site: left jugular; hb 17:20 Follow up: IV Status: Infusion continued upon admission tw2 15:07 Drug: Zofran 4 mg Route: IVP; Site: left jugular; hb 15:34 Follow up: Response: No adverse reaction tw2 15:07 Drug: Pepcid 20 mg Route: PO; hb 15:34 Follow up: Response: No adverse reaction tw2 15:56 Drug: D50W 25 ml Route: IVP; Site: left jugular; hb 16:30 Follow up: Response: No adverse reaction; Blood pressure is elevated hb Point of Care Testing: Blood Glucose: 16:35 Blood Glucose: 89 mg/dL; tw2 Ranges: Critical Glucose Levels:Adult <50 mg/dl or >400 mg/dl <40 mg/dl or >180 mg/dl Disposition: 02/06/19 15:58 Hospitalization ordered by Carlos Melendez for Inpatient Admission. Preliminary diagnosis are Weakness, Anemia, unspecified - microcytic, hypochromic, symptomatic, Obesity, unspecified, Type 2 diabetes mellitus, Hypoglycemia, unspecified. - Bed requested for Telemetry/MedSurg (Inpatient). - Status is Inpatient Admission. hb - Condition is Fair. - Problem is new. - Symptoms have improved. UTI on Admission? No Signatures: Dispatcher [employer] EDMS Radha Kelly RN RN ch Anderson, Corey, MD MD cha Baxter, Heather, RN RN hb Wise, Tara, RN RN tw2 Moraima Lozano Corrections: (The following items were deleted from the chart) 15:53 15:51 02/06/2019 15:51 Discharged to Home. Impression: Weakness; Headache; Anemia, june unspecified - microcytic, hypochromic; Obesity, unspecified; Type 2 diabetes mellitus; Hypoglycemia, unspecified. Condition is Fair. Forms are Medication Reconciliation Form, Thank You Letter, Antibiotic Education, Prescription Opioid Use. Follow up: Carlos Melendez; When: 2 - 3 days; Reason: Recheck today's complaints, Continuance of care, Re-evaluation by your physician. Problem is new. Symptoms have improved. june 15:53 15:53 02/06/2019 15:51 Discharged to Home. Impression: Weakness; Headache; Anemia, june unspecified - microcytic, hypochromic, symtomatic; Obesity, unspecified; Type 2 diabetes mellitus; Hypoglycemia, unspecified. Condition is Fair. Forms are Medication Reconciliation Form, Thank You Letter, Antibiotic Education, Prescription Opioid Use. Follow up: Carlos Melendez; When: 2 - 3 days; Reason: Recheck today's complaints, Continuance of care, Re-evaluation by your physician. Problem is new. Symptoms have improved. [facility] 16:51 15:58 Hospitalization Ordered by Carlos Melendez DO for Inpatient Admission. Preliminary eb diagnosis is Weakness; Anemia, unspecified - microcytic, hypochromic, symptomatic; Obesity, unspecified; Type 2 diabetes mellitus; Hypoglycemia, unspecified. Bed requested for Telemetry/MedSurg (Inpatient). Status is Inpatient Admission. Condition is Fair. Problem is new. Symptoms have improved. UTI on Admission? No. [facility] 17:32 16:51 02/06/2019 15:58 Hospitalization Ordered by Carlos Melendez DO for Inpatient hb Admission. Preliminary diagnosis is Weakness; Anemia, unspecified - microcytic, hypochromic, symptomatic; Obesity, unspecified; Type 2 diabetes mellitus; Hypoglycemia, unspecified. Bed requested for Telemetry/MedSurg (Inpatient). Status is Inpatient Admission. Condition is Fair. Problem is new. Symptoms have improved. UTI on Admission? No. eb
[2019-02-06 15:56] LABS: RBC Red Blood Cell Count 3.09 M/uL (3.86-4.86)
[2019-02-06] MEDS ORDERED: D50W 25 GM/50 ML SYRINGE IV ONE (16:05)
[2019-02-06 16:30] LABS: Urine Blood NEGATIVE (NEG); Urine Glucose NEGATIVE (NEG); Urine Protein NEGATIVE (NEG)
[2019-02-06 16:31] LABS: Folic Acid, (Folate) 17.7 ng/mL (3.1-17.5)
--- NOTE | 2019-02-06 16:46 | P.HP ---
Certification for Inpatient Patient admitted to: Observation With expected LOS: <2 Midnights Patient will require the following post-hospital care: None Practitioner: I am a practitioner with admitting privileges, knowledge of patient current condition, hospital course, and medical plan of care. Services: Services provided to patient in accordance with Admission requirements found in Title 42 Section 412.3 of the Code of Federal Regulations Patient History Date of Service: 02/06/19 Primary Care Provider: Dr. Patel Reason for admission: Fatigue, headache History of Present Illness: 73-year-old female presented to the emergency room with increased fatigue and headache. She apparently went to her PCP office today. Lab was obtained. It was reported that she had a low hemoglobin. The patient was sent to the ER for further evaluation. She denies any rectal bleeding, melena. She denies any vomiting or coughing of blood. She denies any significant shortness of breath. No chest pain noted patient is seen by GI as an outpatient. It has been over 5 years since her last colonoscopy. In the ER patient evaluated. Blood pressure slightly elevated. Hemoglobin 7.8. White count 9.7, sodium 137, BUN of 26, creatinine 1.29 with a GFR 49. Glucose 57. Troponin unremarkable. Chest x-ray unremarkable. CT head negative. Guaiac study in the emergency room was negative. Patient was admitted for observation. When I saw the patient the ER, she had appeared stable. She denied any significant chest pain. Allergies No Known Drug Allergies Allergy (Verified 04/09/15 13:52) Unknown No Known Allergies Allergy (Uncoded 05/07/16 00:50) Unknown Home medications list reviewed: Yes Home Medications: Amlodipine [Norvasc*] 10 mg PO DAILY 01/11/17 Gabapentin 600 mg PO BID 01/11/17 LORazepam [Ativan*] 0.5 mg PO BID 01/11/17 Promethazine HCl 25 mg PO BID 01/11/17 Tramadol HCl [Ultram] 100 mg PO BID 01/11/17 glyBURIDE [Glyburide] 5 mg PO BID 01/11/17 Acetaminophen with Codeine [Acetaminophen-Cod #3 Tablet] 30 - 300 mg PO BID PRN #15 tablet 01/14/17 Multivit with Iron,Minerals [[facility]] 1 each PO DAILY #90 tablet 01/14/17 - Past Medical/Surgical History Diabetic: Yes -: Diabetes mellitus type 2 -: Hypertension -: COPD -: Osteoarthritis -: Depression with anxiety -: Diabetic neuropathy -: Anemia -: Chronic pain -: Cholecystectomy -: Appendectomy -: Knee surgery Psychosocial/ Personal History: Her son lives with her at home. She is a . She has 3 children. - Family History Family History: Reviewed- Non-Contributory - Social History Smoking Status: Never smoker Alcohol use: No CD- Drugs: No Caffeine use: Yes Place of Residence: Home Review of Systems General: Weakness, As per HPI Eyes: Unremarkable ENT: Unremarkable Respiratory: Unremarkable Cardiovascular: Light Headedness, As per HPI Gastrointestinal: Unremarkable Genitourinary: Unremarkable Musculoskeletal: Unremarkable Neurological: As per HPI Lymphatics: Unremarkable Physical Examination - Physical Exam General: Alert, In no apparent distress, Oriented x3, Cooperative HEENT: Atraumatic, Normocephalic, PERRLA, Other (Dry mucous membranes) Neck: Supple Respiratory: Clear to auscultation bilaterally, Normal air movement Cardiovascular: Normal pulses, Regular rate/rhythm Gastrointestinal: Normal bowel sounds, Soft and benign, Non-distended, No tenderness, No masses, No rebound, No guarding Musculoskeletal: No erythema, No tenderness, No warmth Integumentary: No tenderness/swelling, No erythema, No warmth, No cyanosis Neurological: Normal speech, Normal strength at 5/5 x4 extr, Normal tone, Normal affect - Studies Laboratory Data (last 24 hrs) 02/06/19 14:55: PT 12.9 H, INR 1.10 02/06/19 14:55: WBC 9.7 D, Hgb 7.8 L*, Hct 24.7 L, Plt Count 267 02/06/19 14:55: Sodium 137, Potassium 3.8, BUN 26 H, Creatinine 1.29, Glucose 57 L, Magnesium 1.9, Total Bilirubin 0.4, AST 21, ALT 31, Alkaline Phosphatase 76, Lipase 39 L Assessment and Plan - Plan Impression: Acute on chronic anemia likely from iron deficiency Diabetes mellitus type 2 with hypoglycemia Acute renal injury likely from dehydration and medication Hypertension Chronic pain COPD Plan: Acute on chronic anemia likely from iron deficiency: Patient will be admitted for observation. Will transfuse 1 unit and recheck. Patient should be on iron at discharge. Guaiac stool negative. Anticipate discharge in the next 24 hr. Will recommend patient to follow up with her beater tender for EGD colonoscopy in the next several weeks. Diabetes mellitus type 2 with hypoglycemia: Will review home medication. Will discontinue glimepiride. Will check A1c. Acute renal injury likely from dehydration and medication: Will provide IV fluids. Will review home medication to further adjust medication. Recommend no nonsteroidal anti-inflammatories. Hypertension: Will continue with home medication. May need to adjust medication. Chronic pain: Will provide medication as needed. COPD: Will provide medication. Maintain sats above 90 Discharge Plan: Home Plan to discharge in: 24 Hours - Advance Directives Does patient have a Living Will: No Does patient have a Durable POA for Healthcare: No - Code Status/Comfort Care Code Status Assessed: Yes (patient is full code) Time Spent Managing Pts Care (In Minutes): 55
[2019-02-06] MEDS ORDERED: HYDRALAZINE HCL 20 MG/ML VIAL IV PRN (17:41)
[2019-02-06] MEDS ORDERED: NA CHLORIDE 0.9% 1,000 ML IV SCH (17:41)
[2019-02-06] MEDS ORDERED: ACETAMINOPHEN 500 MG TAB PO PRN (17:41)
[2019-02-06] MEDS ORDERED: IPRATROPIUM BROM 0.5MG/2.5ML NEB PRN (17:41)
[2019-02-06] MEDS ORDERED: ALBUTEROL 2.5 MG/3 ML NEB SOL NEB PRN (17:41)
[2019-02-06] MEDS ORDERED: TRAMADOL HCL 50 MG TAB PO PRN (17:41)
[2019-02-06] MEDS ORDERED: D50W 25 GM/50 ML SYRINGE IV PRN (17:58)
[2019-02-06] MEDS ORDERED: GLUCAGON 1 MG/VIAL IM PRN (17:58)
[2019-02-06 18:20] LABS: Thyroid Stimulating Hormone 3.52 uIU/mL (0.360-3.740)
[2019-02-06 18:21] VITALS: BMI 26.3
[2019-02-06] MEDS: ARFORMOTEROL TARTRATE 15 MCG/2 ML VIAL.NEB NEB SCH (19:55)
[2019-02-06] MEDS: INSULIN -REGULAR HUMAN 50 UNIT/0.5 ML ML SQ SCH (20:11)
[2019-02-06] MEDS ORDERED: ONDANSETRON 4 MG/2 ML VIAL IV PRN (20:28)
--- NOTE | 2019-02-06 21:17 | EKG ---
Test Date: 2019-02-06 Test Time: 13:16:23 Support Engineer: OMI MEASUREMENT RESULTS: Intervals: Rate: 61 VA: 166 QRSD: 80 QT: 418 QTc: 420 [place]: P: 40 VA: 166 QRS: 75 T: 58 INTERPRETIVE STATEMENTS: Normal sinus rhythm Normal ECG Compared to ECG 06/04/2018 23:06:25 Atrial premature complex(es) no longer present Electronically Signed On 02-06-19 21:16:21 CDT by Andrei Brenner
[2019-02-06] MEDS ORDERED: NA CHLORIDE 0.9% 250 ML ONE (21:46)
[2019-02-07] MEDS ORDERED: FUROSEMIDE 20 MG/ 2ML VIAL IV ONE (01:01)
[2019-02-07 04:26] LABS: Absolute Monocytes 0.6 K/uL (0.1-1.3); Absolute Neutrophil 5.6 K/uL (1.8-8.0); Basophils % 0.4 % (0-1.3); Eosinophils % 3.1 % (0-4.4); Hematocrit 29.6 % (36.0-45.0); Lymphocytes % 23.6 % (15.3-44.8); MPV 9.2 fL (7.6-11.3); Monocytes % 6.9 % (3.3-12.3); RBC Red Blood Cell Count 3.74 M/uL (3.86-4.86)
[2019-02-07 04:40] LABS: Magnesium 1.6 mg/dL (1.8-2.4); Potassium 3.9 mmol/L (3.5-5.1)
[2019-02-07] MEDS ORDERED: MAGNESIUM SULFATE 1 gm IVPB 1 GM/100 ML BAG IV ONE (04:41)
[2019-02-07] MEDS ORDERED: POTASSIUM CL SA 10 MEQ TAB PO ONE (04:42)
[2019-02-07 04:43] VITALS: O2SAT 98
[2019-02-07] MEDS: INSULIN -REGULAR HUMAN 50 UNIT/0.5 ML ML SQ SCH ×2 (07:30→11:30)
[2019-02-07] MEDS ORDERED: PANTOPRAZOLE 40MG TABLET PO SCH (07:30)
[2019-02-07] MEDS: ARFORMOTEROL TARTRATE 15 MCG/2 ML VIAL.NEB NEB SCH (08:45)
[2019-02-07] MEDS ORDERED: NEBIVOLOL HCL 5 MG TAB PO SCH (09:00)
[2019-02-07] MEDS ORDERED: LOSARTAN POTASSIUM 50 MG TABLET PO SCH (09:00)
[2019-02-07] MEDS ORDERED: SUMATRIPTAN SUCCI 50 MG TAB PO PRN (10:09)
[2019-02-07] MEDS ORDERED: LORAZEPAM 0.5 MG TABLET PO PRN (10:09)
--- NOTE | 2019-02-07 10:12 | P.DS ---
Admission Date: 02/06/19 Discharge Date: 02/07/19 Primary Care Provider: Dr. Patel Disposition: ROUTINE DISCHARGE Discharge Condition: GOOD Reason for Admission: Fatigue, headache Consultations: none Procedures: Medical problem list: Acute on chronic anemia likely from iron deficiency Diabetes mellitus type 2 with hypoglycemia Acute renal injury likely from dehydration and medication Hypertension Chronic pain COPD GERD Brief History of Present Illness: 73-year-old female presented to the emergency room with increased fatigue and headache. She apparently went to her PCP office today. Lab was obtained. It was reported that she had a low hemoglobin. The patient was sent to the ER for further evaluation. She denies any rectal bleeding, melena. She denies any vomiting or coughing of blood. She denies any significant shortness of breath. No chest pain noted patient is seen by GI as an outpatient. It has been over 5 years since her last colonoscopy. In the ER patient evaluated. Blood pressure slightly elevated. Hemoglobin 7.8. White count 9.7, sodium 137, BUN of 26, creatinine 1.29 with a GFR 49. Glucose 57. Troponin unremarkable. Chest x-ray unremarkable. CT head negative. Guaiac study in the emergency room was negative. Patient was admitted for observation. When I saw the patient the ER, she had appeared stable. She denied any significant chest pain. Hospital Course: Patient presented with acute on chronic anemia secondary to iron deficiency. Patient required transfusion of blood due to her symptoms. Guaiac stool negative. Patient is seen by GI as an outpatient. At discharge patient will continue with iron supplementation 325 mg 1 pill twice daily. Recommend to follow up with her publicity consultant for EGD and colonoscopy. Compliance with medication addressed in detail. Recommend to recheck CBC in 2-4 weeks to monitor her progress. Recommend to follow up with her PCP to further monitor. Will also recommend to discontinue in any nonsteroidal anti-inflammatories including diclofenac. Patient with diabetes mellitus type 2. Blood sugar was slightly decreased. Medication adjusted during her stay. Patient takes glyburide. Hypoglycemia education will need to be continued and monitored. Recommend maintain blood sugars less 140 fasting and less than 200 after meals. At discharge patient will continue with glyburide 2.5 mg 1 pill twice daily. Further adjustment can be done by her PCP. She is to hold her medication if blood sugar less than 100. Patient with hypertension. Medication adjusted during her stay due to dehydration and acute renal injury. Patient previously on Lasix 20 mg as needed , Bystolic 20 mg daily, and Losartan hydrochlorothiazide 100/25 mg daily. At discharge Lasix and losartan hydrochlorothiazide discontinued. At discharge she will continue with Bystolic 10 mg daily and losartan 50 mg daily. Recommend maintain blood pressures less 150/80. Further adjustment can be done by her PCP. Patient with chronic pain. Patient taking diclofenac. This will be discontinued due to her anemia. At discharge she may continue with tramadol 50 mg 1 pill 3 times a day as needed for pain. Recommend no further use of nonsteroidal anti-inflammatories. Patient with mild dehydration and acute renal injury. Diclofenac was discontinued. Multiple medications adjusted including Lasix and losartan/ hydrochlorothiazide. Both discontinued. Patient received IV fluids. Improvement noted At discharge. Recommend to recheck lab-BMP in 1 week to monitor her progress. Recommend no further use of nonsteroidal anti- inflammatories may need to be renally dosed. Patient with GERD. Patient will continue with Protonix 40 mg 1 pill daily. Patient with COPD. Patient will continue with Breo 1 puff twice daily. Recommend to follow up with pulmonology as an outpatient to further monitor. Vital Signs/Physical Exam: Temp Pulse Resp BP Pulse Ox 97.1 F 62 20 128/72 98 02/07/19 08:00 02/07/19 08:40 02/07/19 08:00 02/07/19 08:40 02/07/19 08:00 General: Alert, In no apparent distress, Oriented x3, Cooperative HEENT: Atraumatic Neck: Supple Respiratory: Clear to auscultation bilaterally, Normal air movement Cardiovascular: Normal pulses, Regular rate/rhythm Gastrointestinal: Normal bowel sounds, Soft and benign, Non-distended, No tenderness, No masses, No rebound, No guarding Musculoskeletal: No erythema, No tenderness, No warmth Integumentary: No tenderness/swelling, No erythema, No warmth, No cyanosis Neurological: Normal speech, Normal strength at 5/5 x4 extr, Normal tone, Normal affect Laboratory Data at Discharge: WBC 8.4 K/uL (4.3-10.9) 02/07/19 03:41 Hgb 9.6 g/dL (12.0-15.0) L 02/07/19 03:41 Hct 29.6 % (36.0-45.0) L D 02/07/19 03:41 Plt Count 251 K/uL (152-406) 02/07/19 03:41 PT 12.9 SECONDS (9.5-12.5) H 02/06/19 14:55 INR 1.10 02/06/19 14:55 Sodium 139 mmol/L (136-145) 02/07/19 03:41 Potassium 3.9 mmol/L (3.5-5.1) 02/07/19 03:41 BUN 26 mg/dL (7-18) H 02/07/19 03:41 Creatinine 1.11 mg/dL (0.55-1.3) 02/07/19 03:41 Glucose 66 mg/dL (74-106) L 02/07/19 03:41 Magnesium 1.6 mg/dL (1.8-2.4) L 02/07/19 03:41 Total Bilirubin 0.4 mg/dL (0.2-1.0) 02/06/19 14:55 AST 21 U/L (15-37) 02/06/19 14:55 ALT 31 U/L (12-78) 02/06/19 14:55 Alkaline Phosphatase 76 U/L (45-117) 02/06/19 14:55 Lipase 39 U/L (73-393) L 02/06/19 14:55 Home Medications: Tramadol HCl [Ultram] 100 mg PO BID 01/11/17 Doxepin HCl [Silenor] 1 tab PO DAILY 02/07/19 Ferrous Sulfate [Iron] 325 mg PO BID #60 tablet 02/07/19 Fluticasone/Vilanterol [Breo Ellipta 200-25 Mcg INH] 1 puff IH BID 02/07/19 LORazepam [Ativan*] 0.5 mg PO DAILY PRN 02/07/19 Losartan Potassium [Cozaar*] 50 mg PO DAILY #30 tablet 02/07/19 Nebivolol HCl [Bystolic*] 10 mg PO DAILY #60 tab 02/07/19 Pantoprazole Sodium 40 mg PO DAILY 02/07/19 Sumatriptan [Imitrex*] 50 mg PO PRN PRN 02/07/19 glyBURIDE [Glyburide] 2.5 mg PO BID #30 tablet 02/07/19 New Medications: Ferrous Sulfate [Iron] 325 mg PO BID #60 tablet glyBURIDE [Glyburide] 2.5 mg PO BID #30 tablet Losartan Potassium [Cozaar*] 50 mg PO DAILY #30 tablet Nebivolol HCl [Bystolic*] 10 mg PO DAILY #60 tab Patient Discharge Instructions: 1. Patient to follow up with her PCP within 1 week to follow up this hospitalization. 2. Patient presented with acute on chronic anemia secondary to iron deficiency. Patient required transfusion of blood due to her symptoms. Guaiac stool negative. Patient is seen by GI as an outpatient. At discharge patient will continue with iron supplementation 325 mg 1 pill twice daily. Recommend to follow up with her publicity consultant for EGD and colonoscopy. Compliance with medication addressed in detail. Recommend to recheck CBC in 2-4 weeks to monitor her progress. Recommend to follow up with her PCP to further monitor. Will also recommend to discontinue in any nonsteroidal anti-inflammatories including diclofenac. 3. Patient with diabetes mellitus type 2. Blood sugar was slightly decreased. Medication adjusted during her stay. Patient takes glyburide. Hypoglycemia education will need to be continued and monitored. Recommend maintain blood sugars less 140 fasting and less than 200 after meals. At discharge patient will continue with glyburide 2.5 mg 1 pill twice daily. Further adjustment can be done by her PCP. She is to hold her medication if blood sugar less than 100. 4. Patient with hypertension. Medication adjusted during her stay due to dehydration and acute renal injury. Patient previously on Lasix 20 mg as needed, Bystolic 20 mg daily, and Losartan hydrochlorothiazide 100/25 mg daily. At discharge Lasix and losartan hydrochlorothiazide discontinued. At discharge she will continue with Bystolic 10 mg daily and losartan 50 mg daily. Recommend maintain blood pressures less 150/80. Further adjustment can be done by her PCP. 5. Patient with chronic pain. Patient taking diclofenac. This will be discontinued due to her anemia. At discharge she may continue with tramadol 50 mg 1 pill 3 times a day as needed for pain. Recommend no further use of nonsteroidal anti- inflammatories. 6. Patient with mild dehydration and acute renal injury. Diclofenac was discontinued. Multiple medications adjusted including Lasix and losartan/hydrochlorothiazide. Both discontinued. Patient received IV fluids. Improvement noted At discharge. Recommend to recheck lab-BMP in 1 week to monitor her progress. Recommend no further use of nonsteroidal anti- inflammatories may need to be renally dosed. 7. Patient with GERD. Patient will continue with Protonix 40 mg 1 pill daily. 8. Patient with COPD. Patient will continue with Breo 1 puff twice daily. Recommend to follow up with pulmonology as an outpatient to further monitor. Diet: ADA Activity: Fall precautions Time spent managing pt's care (in minutes): 55
[2019-02-07 12:17] VITALS: BP 154/58; TEMP 96.9
[2019-02-07] MEDS ORDERED: HOME MED 1 EA UNK (Fluticasone/Vilanterol [Breo Ellipta 200-25 Mcg Inh] 1 PUFF) IH SCH (21:00)
[2019-02-08] MEDS ORDERED: DOXEPIN HCL PO SCH (09:00)
== END 2019-02-07 13:50 | disposition home or self-care (01) ==
LOC: ER 12:09 → ERHOLD 16:33 → 4TH 17:10
PROVIDERS: ADMIT Family Medicine; ATTEND Family Medicine
PROC: 30233N1 Transfusion of Nonautologous Red Blood Cells into Peripheral Vein, Percutaneous Approach (ICD-10-PCS; principal; 2019-02-06)
DX: D50.9 Iron deficiency anemia, unspecified (principal); E11.649 Type 2 diabetes mellitus with hypoglycemia without coma; N17.9 Acute kidney failure, unspecified; E86.0 Dehydration; I10 Essential (primary) hypertension; G89.29 Other chronic pain; J44.9 Chronic obstructive pulmonary disease, unspecified; K21.9 Gastro-esophageal reflux disease without esophagitis
CPT/HCPCS: 96361; 93005; 87088; 85025 ×2; 87086; 80048 ×2; 36415; 86900; 83735 ×2; 86850; 85610; 85044; 86901; 82962 ×5; 80076; 84443; 81003; 84484; 84439; 82728; 82746; 82607; 83690; 83540; 83880; 84466; 70450; 71045; 94640; 96375; 96374; 99285; 36430; J1940; J3475; J2270; J7605 ×2; P9016; J7030 ×2; J2405 ×2

== ENCOUNTER 2020-01-05 21:53 | Emergency (ER) | payer OTHER ==
[2011-12-31 21:01] VITALS: BP 112/75
[2020-01-06] MEDS ORDERED: FUROSEMIDE 40 MG TABLET ONE (00:40)
[2020-01-06 01:18] LABS: Urine Blood NEGATIVE (NEG); Urine Glucose NEGATIVE (NEG); Urine Protein 1+ (NEG); Urine Specific Gravity 1.025 (1.005-1.030)
[2020-01-06 01:36] LABS: Basophils % 1.7 % (0-1.3); Lymphocytes % 31.1 % (15.3-44.8)
[2020-01-06 01:45] LABS: Absolute Lymphocytes (CBC) 4.1 K/uL (0.7-4.9); Hematocrit 31.5 % (36.0-45.0); MPV 10.8 fL (7.6-11.3); RBC Red Blood Cell Count 3.48 M/uL (3.86-4.86)
[2020-01-06 02:01] LABS: Urine Amorphous Sediment 1+ /HPF (NONE SEEN); Urine Bacteria 20-50 /HPF (<20); Urine Culture Reflex Order NOT NEEDED; Urine Mucus 1+ /HPF (NONE SEEN); Urine RBC <5 /HPF (NONE SEEN)
--- NOTE | 2020-01-06 02:13 | ER ---
Nurse's Notes [facility] Name: Meredith King Age: 74 yrs Sex: Female : 1945 Arrival Date: 01/05/2020 Time: 21:54 Bed 19 Private MD: Diagnosis: Urinary tract infection, site not specified;Patient's unintentional underdosing of medication regimen Presentation: 01/05 22:28 Presenting complaint: Patient states: swelling in nori feet x 3 days. Denies pain or SOB aa1 at rest or exertion. Swelling present with no pitting noted. Transition of care: patient was not received from another setting of care. Onset of symptoms was January 03, 2020. Risk Assessment: Do you want to hurt yourself or someone else? Patient reports no desire to harm self or others. Initial Sepsis Screen: Does the patient meet any 2 criteria? No. Patient's initial sepsis screen is negative. Does the patient have a suspected source of infection? No. Patient's initial sepsis screen is negative. Care prior to arrival: None. 22:28 Method Of Arrival: Wheelchair aa1 22:28 Acuity: ALYSE 3 aa1 Triage Assessment: 22:31 General: Appears in no apparent distress. comfortable, Behavior is calm, cooperative, aa1 appropriate for age. Pain: Denies pain. Historical: - Allergies: 22:31 No Known Allergies; aa1 - Home Meds: 22:31 Bystolic Oral [Active]; Metformin Oral [Active]; aa1 - PMHx: 22:31 "slight case of breathing issues,"; Hypertension; Diabetes - NIDDM; Chronic pain; aa1 Arthritis; - PSHx: 22:31 Cholecystectomy; Knee surgery; Appendectomy; aa1 - Immunization history:: Flu vaccine is up to date. - Coronavirus screen:: The patient has NOT traveled to [place] in the past 14 days. - Social history:: Smoking status: Patient denies any tobacco usage or history of. - Ebola Screening: : No symptoms or risks identified at this time. Screenin:30 Abuse screen: Denies threats or abuse. Denies injuries from another. Nutritional wh screening: No deficits noted. Tuberculosis screening: No symptoms or risk factors identified. Fall Risk None identified. Assessment: 22:30 General: Appears in no apparent distress. Behavior is calm, cooperative, appropriate wh for age. Pain: Denies pain. Neuro: Level of Consciousness is awake, alert, obeys commands, Oriented to person, place, time, situation, Appropriate for age. Cardiovascular: Heart tones S1 S2. Cardiovascular: Edema pitting to left ankle, left foot, right ankle and right foot. Respiratory: Airway is patent Respiratory effort is even, unlabored, Respiratory pattern is regular, symmetrical, Breath sounds are clear bilaterally. GI: Abdomen is round non-distended. : No signs and/or symptoms were reported regarding the genitourinary system. EENT: No signs and/or symptoms were reported regarding the EENT system. Derm: Skin is intact, is healthy with good turgor, Skin is pink, warm \\T\\ dry. normal. Musculoskeletal: Circulation, motion, and sensation intact. 01/06 00:00 Reassessment: Patient appears in no apparent distress at this time. No changes from previously documented assessment. Patient and/or family updated on plan of care and expected duration. Pain level reassessed. Patient is alert, oriented x 3, equal unlabored respirations, skin warm/dry/pink. 01:00 Reassessment: Patient appears in no apparent distress at this time. No changes from previously documented assessment. Patient and/or family updated on plan of care and expected duration. Pain level reassessed. Patient is alert, oriented x 3, equal unlabored respirations, skin warm/dry/pink. 02:30 Reassessment: Patient appears in no apparent distress at this time. No changes from previously documented assessment. Patient and/or family updated on plan of care and expected duration. Pain level reassessed. Patient is alert, oriented x 3, equal unlabored respirations, skin warm/dry/pink. Patient states feeling better. Patient states symptoms have improved. Vital Signs: 01/05 22:31 BP 188 / 108; Pulse 82; Resp 18; Temp 98.0; Pulse Ox 99% on R/A; Weight 81.65 kg; aa1 Height 5 ft. 5 in. (165.10 cm); Pain 0/10; 01/06 00:00 BP 161 / 125; Pulse 81; Resp 18; Pulse Ox 99% ; wh 01:11 BP 164 / 98; Pulse 87; Resp 18; Pulse Ox 99% on R/A; wh 02:30 BP 166 / 83; Pulse 82; Resp 18; Pulse Ox 100% on R/A; 01/05 22:31 Body Mass Index 29.95 (81.65 kg, 165.10 cm) aa1 ED Course: 01/05 21:54 Patient arrived in ED. ag3 22:27 [facility]C [facility]. snw 22:27 Kenny Nunez MD is Attending Physician. snw 22:29 Triage completed. aa1 22:30 Patient has correct armband on for positive identification. Bed in low position. Call light in reach. Side rails up X 1. Pulse ox on. NIBP on. 22:31 Arm band placed on right wrist. aa1 22:40 Mark Cortez is Primary Nurse. 23:00 Missed attempt(s): 22 gauge in right antecubital area. Bleeding controlled, band aid wh applied, catheter tip intact. 23:30 Bruce cath inserted, using sterile technique, 18 Fr., by va, balloon inflated, to gravity drainage, clamped. urine specimen collected. Patient tolerated well. 23:39 Chest Single View XRAY In Process Unspecified. EDTX 01/06 02:30 No provider procedures requiring assistance completed. Patient did not have IV access wh during this emergency room visit. 02:30 Bruce cath removed intact, balloon deflated, 250 cc output. Administered Medications: 00:26 CANCELLED (other intervention used): Lasix 20 mg IVP once snw 00:35 Drug: LaSIX 40 mg Route: PO; 02:50 Follow up: Response: No adverse reaction 02:33 Drug: Rocephin (cefTRIAXone) 1 grams Route: IM; Site: left gluteus; 02:50 Follow up: Response: No adverse reaction Outcome: 02:08 Discharge ordered by . snw 02:30 Discharged to home via wheelchair. 02:30 Condition: stable 02:30 Discharge instructions given to patient, Instructed on discharge instructions, follow up and referral plans. medication usage, POC Demonstrated understanding of instructions, follow-up care, medications, POC Prescriptions given X 1. 02:56 Patient left the ED. Signatures: Dispatcher [employer] EDTX Samira Barragan RN RN aa1 Briseida Quintero FNP-C [facility] Mark Cortez Gillis, Karen ag3
--- NOTE | 2020-01-06 02:14 | EDPHYS ---
Physician Documentation [facility] Name: Meredith King Age: 74 yrs Sex: Female : 1945 Arrival Date: 01/05/2020 Time: 21:54 Bed 19 Private MD: ED Physician Kenny Nunez HPI: 01/05 22:56 This 74 yrs old Black Female presents to ER via Wheelchair with complaints of Feet snw Swelling. 22:56 Pt states her feet are swollen, inquired if pt takes Lasix. Pt is supposed to take snw lasix but didn't today because "I have arthritis really bad". Onset: The symptoms/episode began/occurred acutely. Severity of symptoms: At their worst the symptoms were mild. It is unknown whether or not the patient has had similar symptoms in the past. It is unknown whether or not the patient has recently seen a physician. sees Dr. Liao. Historical: - Allergies: 22:31 No Known Allergies; aa1 - Home Meds: 22:31 Bystolic Oral [Active]; Metformin Oral [Active]; aa1 - PMHx: 22:31 "slight case of breathing issues,"; Hypertension; Diabetes - NIDDM; Chronic pain; aa1 Arthritis; - PSHx: 22:31 Cholecystectomy; Knee surgery; Appendectomy; aa1 - Immunization history:: Flu vaccine is up to date. - Coronavirus screen:: The patient has NOT traveled to [place] in the past 14 days. - Social history:: Smoking status: Patient denies any tobacco usage or history of. - Ebola Screening: : No symptoms or risks identified at this time. ROS: 22:55 Constitutional: Negative for fever, chills, and weight loss, Eyes: Negative for injury, snw pain, redness, and discharge, ENT: Negative for injury, pain, and discharge, Neck: Negative for injury, pain, and swelling, Cardiovascular: Negative for chest pain, palpitations, and edema, Respiratory: Negative for shortness of breath, cough, wheezing, and pleuritic chest pain, Abdomen/GI: Negative for abdominal pain, nausea, vomiting, diarrhea, and constipation, Back: Negative for injury and pain, : Negative for injury, bleeding, discharge, and swelling, MS/Extremity: Negative for injury and deformity, c/o bilateral feet edema Skin: Negative for injury, rash, and discoloration, Neuro: Negative for headache, weakness, numbness, tingling, and seizure. Exam: 22:53 Constitutional: This is a well developed, well nourished patient who is awake, alert, snw and in no acute distress. Urine odor in room Head/Face: Normocephalic, atraumatic. Eyes: Pupils equal round and reactive to light, extra-ocular motions intact. Lids and lashes normal. Conjunctiva and sclera are non-icteric and not injected. Cornea within normal limits. Periorbital areas with no swelling, redness, or edema. ENT: Nares patent. No nasal discharge, no septal abnormalities noted. Tympanic membranes are normal and external auditory canals are clear. Oropharynx with no redness, swelling, or masses, exudates, or evidence of obstruction, uvula midline. Mucous membranes moist. Neck: Trachea midline, no thyromegaly or masses palpated, and no cervical lymphadenopathy. Supple, full range of motion without nuchal rigidity, or vertebral point tenderness. No Meningismus. Chest/axilla: Normal chest wall appearance and motion. Nontender with no deformity. No lesions are appreciated. Cardiovascular: Regular rate and rhythm with a normal S1 and S2. No gallops, murmurs, or rubs. Normal PMI, no JVD. No pulse deficits. Mild peripheral edema Respiratory: Lungs have equal breath sounds bilaterally, clear to auscultation and percussion. No rales, rhonchi or wheezes noted. No increased work of breathing, no retractions or nasal flaring. Abdomen/GI: Soft, non-tender, with normal bowel sounds. No distension or tympany. No guarding or rebound. No evidence of tenderness throughout. Back: No spinal tenderness. No costovertebral tenderness. Full range of motion. MS/ Extremity: Pulses equal, no cyanosis. Neurovascular intact. Full, normal range of motion. Neuro: Awake and alert, GCS 15, oriented to person, place, time, and situation. Cranial nerves II-XII grossly intact. Motor strength 5/5 in all extremities. Sensory grossly intact. Cerebellar exam normal. Normal gait. Psych: Awake, alert, with orientation to person, place and time. Behavior, mood, and affect are within normal limits. 22:53 Skin: Appearance: normal except for affected area, Temperature: cool, Moisture: dry. Vital Signs: 22:31 BP 188 / 108; Pulse 82; Resp 18; Temp 98.0; Pulse Ox 99% on R/A; Weight 81.65 kg; aa1 Height 5 ft. 5 in. (165.10 cm); Pain 0/10; 01/06 00:00 BP 161 / 125; Pulse 81; Resp 18; Pulse Ox 99% ; wh 01:11 BP 164 / 98; Pulse 87; Resp 18; Pulse Ox 99% on R/A; wh 02:30 BP 166 / 83; Pulse 82; Resp 18; Pulse Ox 100% on R/A; wh 02 22:31 Body Mass Index 29.95 (81.65 kg, 165.10 cm) aa1 MDM: 01/05 22:36 Patient medically screened. [facility] 01/06 02:11 Data reviewed: vital signs, nurses notes. Data interpreted: Pulse oximetry: on room air snw is 99 %. Interpretation: normal. Counseling: I had a detailed discussion with the patient and/or guardian regarding: the historical points, exam findings, and any diagnostic results supporting the discharge/admit diagnosis, the presence of at least one elevated blood pressure reading (>120/80) during this emergency department visit, lab results, the need for outpatient follow up, to return to the emergency department if symptoms worsen or persist or if there are any questions or concerns that arise at home. Response to treatment: the patient's symptoms have mildly improved after treatment. 02:28 Special discussion: I have referred the patient to see his PCP for further evaluation snw of high blood pressure. Based on the history and exam findings, there is no indication for further emergent testing or inpatient evaluation. I discussed with the patient/guardian the need to see the primary care provider for further evaluation of the symptoms. 02 22:50 Order name: CBC with Diff snw 01/05 22:50 Order name: Chem 7 snw 01/05 22:50 Order name: Urine Culture snw 01/05 22:50 Order name: Urine Microscopic Only; Complete Time: 02:03 snw 01/05 22:51 Order name: CBC with Automated Diff EDMS 01/05 22:51 Order name: Basic Metabolic Panel; Complete Time: 01:17 EDMS 01/05 22:50 Order name: Bruce; Complete Time: 01:04 snw 01/05 22:50 Order name: Chest Single View XRAY snw 01/05 22:50 Order name: Urine Dipstick-Ancillary (obtain specimen); Complete Time: 01:04 snw 01/06 01:09 Order name: Urine Dipstick--Ancillary (enter results); Complete Time: 01:21 cm6 01/06 02:20 Order name: CBC Smear Scan; Complete Time: 02:22 EDMS 01/06 01:05 Order name: Recheck Vital Signs; Complete Time: 01:13 snw Administered Medications: 00:26 CANCELLED (other intervention used): Lasix 20 mg IVP once snw 00:35 Drug: LaSIX 40 mg Route: PO; 02:50 Follow up: Response: No adverse reaction 02:33 Drug: Rocephin (cefTRIAXone) 1 grams Route: IM; Site: left gluteus; 02:50 Follow up: Response: No adverse reaction Disposition: 08:53 Co-signature as Attending Physician, Kenny Nunez MD I agree with the assessment and june plan of care. Disposition: 01/06/20 02:08 Discharged to Home. Impression: Urinary tract infection, site not specified, Patient's unintentional underdosing of medication regimen. - Condition is Stable. - Discharge Instructions: Hypertension, Urinary Tract Infection, Adult, Rehydration, Elderly. - Prescriptions for Augmentin 875- 125 mg Oral Tablet - take 1 tablet by ORAL route every 12 hours for 10 days; 20 tablet. - Medication Reconciliation Form, Thank You Letter, Antibiotic Education, Prescription Opioid Use form. - Follow up: Private Physician; When: 2 - 3 days; Reason: Recheck today's complaints, Continuance of care, Re-evaluation by your physician. Follow up: Emergency Department; When: As needed; Reason: Worsening of condition. Signatures: Dispatcher [employer] EDAL Samira Barragan RN RN aa1 Anderson, Corey, MD MD cha Therrien, Shelly, [employer] INTERLEAFER-C [employer] P[employer] INTERLEAFER-Andersw Mark Cortez Corrections: (The following items were deleted from the chart) 01/05 22:56 22:53 Constitutional: This is a well developed, well nourished patient who is awake, snw alert, and in no acute distress. Head/Face: Normocephalic, atraumatic. Eyes: Pupils equal round and reactive to light, extra-ocular motions intact. Lids and lashes normal. Conjunctiva and sclera are non-icteric and not injected. Cornea within normal limits. Periorbital areas with no swelling, redness, or edema. ENT: Nares patent. No nasal discharge, no septal abnormalities noted. Tympanic membranes are normal and external auditory canals are clear. Oropharynx with no redness, swelling, or masses, exudates, or evidence of obstruction, uvula midline. Mucous membranes moist. Neck: Trachea midline, no thyromegaly or masses palpated, and no cervical lymphadenopathy. Supple, full range of motion without nuchal rigidity, or vertebral point tenderness. No Meningismus. Chest/axilla: Normal chest wall appearance and motion. Nontender with no deformity. No lesions are appreciated. Cardiovascular: Regular rate and rhythm with a normal S1 and S2. No gallops, murmurs, or rubs. Normal PMI, no JVD. No pulse deficits. Mild peripheral edema Respiratory: Lungs have equal breath sounds bilaterally, clear to auscultation and percussion. No rales, rhonchi or wheezes noted. No increased work of breathing, no retractions or nasal flaring. Abdomen/GI: Soft, non-tender, with normal bowel sounds. No distension or tympany. No guarding or rebound. No evidence of tenderness throughout. Back: No spinal tenderness. No costovertebral tenderness. Full range of motion. MS/ Extremity: Pulses equal, no cyanosis. Neurovascular intact. Full, normal range of motion. Neuro: Awake and alert, GCS 15, oriented to person, place, time, and situation. Cranial nerves II-XII grossly intact. Motor strength 5/5 in all extremities. Sensory grossly intact. Cerebellar exam normal. Normal gait. Psych: Awake, alert, with orientation to person, place and time. Behavior, mood, and affect are within normal limits. snw 01/06 00:01/05 22:50 Lasix 20 mg IVP once ordered. snw snw 01/06 00: 00:26 Lasix 20 mg IVP once ordered. snw snw 02:56 02:08 01/06/2020 02:08 Discharged to Home. Impression: Urinary tract infection, site wh not specified; Patient's unintentional underdosing of medication regimen. Condition is Stable. Forms are Medication Reconciliation Form, Thank You Letter, Antibiotic Education, Prescription Opioid Use. Follow up: Private Physician; When: 2 - 3 days; Reason: Recheck today's complaints, Continuance of care, Re-evaluation by your physician. Follow up: Emergency Department; When: As needed; Reason: Worsening of condition. snw
[2020-01-06 02:19] LABS: Blood Morphology Comment NOT SEEN (NOT SEEN); Platelet Estimate ADEQ; Urine White Blood Cell Casts OK
[2020-01-06] MEDS ORDERED: WATER FOR INJ,STERILE 10 ML ONE (02:31)
[2020-01-06] MEDS ORDERED: CEFTRIAXONE 1000 MG/VIAL ONE (02:31)
--- NOTE | 2020-01-06 08:48 | RAD REPORT ---
EXAM DESCRIPTION: RAD - Chest Single View - 01/05/2020 11:38 pm CLINICAL HISTORY: SWELLING Chest pain. COMPARISON: Chest Single View dated 02/06/2019; Chest Single View dated 06/04/2018; Chest Single View dated 01/10/2017; CHEST PA AND LAT 2 VIEW dated 11/26/2015 FINDINGS: Portable technique limits examination quality. The lungs are grossly clear. The heart is mildly to moderately enlarged. No displaced fractures. IMPRESSION: [id number] cardiomegaly.
== END 2020-01-06 02:56 | disposition home or self-care (01) ==
LOC: ER 21:53
DX: N39.0 Urinary tract infection, site not specified (principal); Z91.128 Patient's intentional underdosing of medication regimen for other reason
CPT/HCPCS: 36415; 51702; 71045; 80048; 81003; 81015; 85025; 87086; 87088; 96372; 99284

== ENCOUNTER 2020-05-24 15:00 | Emergency (ER) | payer OTHER ==
--- NOTE | 2020-05-24 17:01 | ER ---
Nurse's Notes [facility] Name: Meredith King Age: 74 yrs Sex: Female : 1945 Arrival Date: 05/24/2020 Time: 15:03 Bed 6 Private MD: Mariah Garza Diagnosis: Acute pain due to trauma Presentation: 05/24 15:13 Chief complaint: Patient states: I fell yesterday evening. Was sitting on a stool and ca1 fell back on my back. C/O neck and back pain. Coronavirus screen: Proceed with normal triage. Patient denies a cough. Patient denies shortness of breath or difficulty breathing. Patient denies measured and/or subjective temperature greater than 100.4F prior to today's visit. Patient denies travel on a cruise ship or to a country the [facility] currently lists as an affected area. Patient denies contact with known and/or suspected case of COVID-19. Ebola Screen: Patient negative for fever greater than or equal to 101.5 degrees Fahrenheit, and additional compatible Ebola Virus Disease symptoms Patient denies exposure to infectious person. Patient denies travel to an Ebola-affected area in the 21 days before illness onset. No symptoms or risks identified at this time. Initial Sepsis Screen: Does the patient meet any 2 criteria? No. Patient's initial sepsis screen is negative. Does the patient have a suspected source of infection? No. Patient's initial sepsis screen is negative. Risk Assessment: Do you want to hurt yourself or someone else? Patient reports no desire to harm self or others. Onset of symptoms was May 24, 2020. 15:13 Method Of Arrival: Wheelchair ca1 15:13 Acuity: ALYSE 3 ca1 Triage Assessment: 15:15 General: Appears in no apparent distress. uncomfortable, obese, Behavior is bp cooperative, appropriate for age, anxious. Pain: Complains of pain in thoracic area. EENT: No deficits noted. Neuro: No deficits noted. Cardiovascular: No deficits noted. Respiratory: No deficits noted. GI: No signs and/or symptoms were reported involving the gastrointestinal system. : No signs and/or symptoms were reported regarding the genitourinary system. Derm: No deficits noted. Musculoskeletal: No deficits noted. Historical: - Allergies: 15:17 No Known Allergies; ca1 - PMHx: 15:17 "slight case of breathing issues,"; Arthritis; Chronic pain; Diabetes - NIDDM; ca1 Hypertension; - PSHx: 15:17 Cholecystectomy; Knee surgery; Appendectomy; ca1 - Immunization history:: Adult Immunizations up to date. - Social history:: Smoking status: Patient denies any tobacco usage or history of. Screenin:52 Abuse screen: Denies threats or abuse. Denies injuries from another. Nutritional bp screening: No deficits noted. Tuberculosis screening: No symptoms or risk factors identified. Fall Risk None identified. Assessment: 15:15 General: SEE TRIAGE NOTE. bp 16:52 Reassessment: ALL CURRENT ORDERS COMPLETED. RESULTS PENDING FOR DISPO. bp 17:18 Reassessment: PT D/C HOME VIA W/C, DX WITH MUSCLE PAIN. bp Vital Signs: 15:13 BP 181 / 107; Pulse 63; Resp 17 S; Temp 98.1(TE); Pulse Ox 99% on R/A; Weight 81.65 kg ca1 (R); Height 5 ft. 2 in. (157.48 cm) (R); 17:09 BP 97 / 71; Pulse 59; Resp 16; Pulse Ox 100% ; bp 15:13 Body Mass Index 32.92 (81.65 kg, 157.48 cm) ca1 ED Course: 15:03 Patient arrived in ED. mr 15:03 Mariah Garza is Private Physician. mr 15:16 Triage completed. ca1 15:17 Arm band placed on right wrist. ca1 15:38 Gaetano Wong, RN is Primary Nurse. bp 15:39 Tyrone Jameson PA is PHCP. jr8 15:39 Tanvir Ashley MD is Attending Physician. jr8 16:28 CT Thoracic Spine Wo Cont In Process Unspecified. EDMS 16:28 Head C Spine Mpr Wo Con In Process Unspecified. EDMS 16:52 Patient has correct armband on for positive identification. Bed in low position. Call bp light in reach. Side rails up X2. 17:00 Mariah Garza is Referral Physician. jr8 17:18 No provider procedures requiring assistance completed. Patient did not have IV access bp during this emergency room visit. Administered Medications: No medications were administered Outcome: 17:00 Discharge ordered by . jr8 17:18 Discharged to home via wheelchair. bp 17:18 Condition: stable 17:18 Discharge instructions given to patient, Instructed on discharge instructions, follow up and referral plans. medication usage, Demonstrated understanding of instructions, follow-up care, medications, Prescriptions given X 1. 17:19 Patient left the ED. bp Signatures: Dispatcher [employer] LOIIA JoseluisHalle mr TrinoTyrone PA PA jr8 Gaetano Wong, RN RN bp Vania Nazario RN RN ca1
--- NOTE | 2020-05-24 17:01 | EDPHYS ---
Physician Documentation [facility] Name: Meredith King Age: 74 yrs Sex: Female : 1945 Arrival Date: 05/24/2020 Time: 15:03 Bed 6 Private MD: Mariah Garza ED Physician Tanvir Ashley HPI: 05/24 16:10 This 74 yrs old Black Female presents to ER via Wheelchair with complaints of Fall jr8 Injury. 16:10 Details of fall: The patient fell from seated position, out of a chair. Onset: The jr8 symptoms/episode began/occurred acutely, yesterday. Associated injuries: The patient sustained injury to the head, neck injury, upper back injury. Severity of symptoms: At their worst the symptoms were mild, in the emergency department the symptoms are unchanged. The patient has not experienced similar symptoms in the past. The patient has not recently seen a physician. Stated that she fell backwards off of stool landing on upper back. Pain to head, neck, and upper back now . Historical: - Allergies: 15:17 No Known Allergies; ca1 - PMHx: 15:17 "slight case of breathing issues,"; Arthritis; Chronic pain; Diabetes - NIDDM; ca1 Hypertension; - PSHx: 15:17 Cholecystectomy; Knee surgery; Appendectomy; ca1 - Immunization history:: Adult Immunizations up to date. - Social history:: Smoking status: Patient denies any tobacco usage or history of. ROS: 16:10 Eyes: Negative for injury, pain, redness, and discharge, ENT: Negative for injury, jr8 pain, and discharge, Cardiovascular: Negative for chest pain, palpitations, and edema, Respiratory: Negative for shortness of breath, cough, wheezing, and pleuritic chest pain, Abdomen/GI: Negative for abdominal pain, nausea, vomiting, diarrhea, and constipation, MS/Extremity: Negative for injury and deformity, Skin: Negative for injury, rash, and discoloration, Neuro: Negative for headache, weakness, numbness, tingling, and seizure. 16:10 Neck: Positive for pain with movement, pain at rest, tenderness, Negative for bony tenderness. 16:10 Back: Positive for pain at rest, pain with movement, of the thoracic area, Negative for radiated pain. Exam: 16:10 Eyes: Pupils equal round and reactive to light, extra-ocular motions intact. Lids and jr8 lashes normal. Conjunctiva and sclera are non-icteric and not injected. Cornea within normal limits. Periorbital areas with no swelling, redness, or edema. ENT: Nares patent. No nasal discharge, no septal abnormalities noted. Tympanic membranes are normal and external auditory canals are clear. Oropharynx with no redness, swelling, or masses, exudates, or evidence of obstruction, uvula midline. Mucous membranes moist. Cardiovascular: Regular rate and rhythm with a normal S1 and S2. No gallops, murmurs, or rubs. Normal PMI, no JVD. No pulse deficits. Respiratory: Lungs have equal breath sounds bilaterally, clear to auscultation and percussion. No rales, rhonchi or wheezes noted. No increased work of breathing, no retractions or nasal flaring. Abdomen/GI: Soft, non-tender, with normal bowel sounds. No distension or tympany. No guarding or rebound. No evidence of tenderness throughout. Skin: Warm, dry with normal turgor. Normal color with no rashes, no lesions, and no evidence of cellulitis. MS/ Extremity: Pulses equal, no cyanosis. Neurovascular intact. Full, normal range of motion. Neuro: Awake and alert, GCS 15, oriented to person, place, time, and situation. Cranial nerves II-XII grossly intact. Motor strength 5/5 in all extremities. Sensory grossly intact. Cerebellar exam normal. Normal gait. 16:10 Neck: External neck: tenderness, that is mild, of the left mid cervical area, right mid cervical area, left trapezius and right trapezius, C-spine: vertebral tenderness, is not appreciated, Thyroid: appears normal, Trachea: is midline with no obvious abnormalities, ROM/movement: pain, that is mild, with any movement, limited range of motion, is not appreciated, Meningeal signs: are not present, Lymph nodes: no appreciated lymphadenopathy. 16:10 Back: pain, that is mild, of the thoracic area, ROM is painful, with all movement, normal spinal alignment noted, CVA tenderness, is absent, vertebral tenderness, is appreciated at T3, T4, T5, T6 and T7. Vital Signs: 15:13 BP 181 / 107; Pulse 63; Resp 17 S; Temp 98.1(TE); Pulse Ox 99% on R/A; Weight 81.65 kg ca1 (R); Height 5 ft. 2 in. (157.48 cm) (R); 17:09 BP 97 / 71; Pulse 59; Resp 16; Pulse Ox 100% ; bp 15:13 Body Mass Index 32.92 (81.65 kg, 157.48 cm) ca1 MDM: 15:39 Patient medically screened. jr8 16:59 Data reviewed: vital signs, nurses notes, radiologic studies, CT scan, and as a result, jr8 I will discharge patient. Data interpreted: Pulse oximetry: on room air is 99 %. Interpretation: normal. Counseling: I had a detailed discussion with the patient and/or guardian regarding: the historical points, exam findings, and any diagnostic results supporting the discharge/admit diagnosis, radiology results, the need for outpatient follow up, a family practitioner, to return to the emergency department if symptoms worsen or persist or if there are any questions or concerns that arise at home. 05/24 16:10 Order name: CT Thoracic Spine Wo Cont 8 05/24 16:14 Order name: Head C Spine Mpr Wo Con EDMS Administered Medications: No medications were administered Disposition: 05/24/20 17:00 Discharged to Home. Impression: Acute pain due to trauma. - Condition is Stable. - Discharge Instructions: Head Injury, Adult, Muscle Pain, Adult. - Prescriptions for Tramadol 50 mg Oral Tablet - take 1 tablet by ORAL route every 8 hours as needed; 12 tablet. - Medication Reconciliation Form, Thank You Letter, Antibiotic Education, Prescription Opioid Use form. - Follow up: Mariah Garza; When: 5 - 6 days; Reason: Recheck today's complaints, Continuance of care, Re-evaluation by your physician. - Problem is new. - Symptoms have improved. Signatures: Dispatcher [employer] EDMS Tyrone Jameson PA PA jr8 Gaetano Wong, RN RN bp Vania Nazario RN RN ca1 Corrections: (The following items were deleted from the chart) 16:14 16:10 C Spine Wo Con+CT.RAD.BRZ ordered. EDMS EDMS 16:14 16:10 Head Brain Wo Cont+CT.RAD.BRZ ordered. EDAR EDMS 17:19 17:00 05/24/2020 17:00 Discharged to Home. Impression: Acute pain due to trauma. bp Condition is Stable. Forms are Medication Reconciliation Form, Thank You Letter, Antibiotic Education, Prescription Opioid Use. Follow up: Mariah Garza; When: 5 - 6 days; Reason: Recheck today's complaints, Continuance of care, Re-evaluation by your physician. Problem is new. Symptoms have improved. jr8
[2020-05-24 17:25] VITALS: TEMP 98.1
[2020-05-24 17:27] VITALS: BP 97/71; O2SAT 100
--- NOTE | 2020-05-25 13:30 | RAD REPORT ---
EXAM DESCRIPTION: CTThoracic Spine W/o Cont05/24/2020 9:09 pm CLINICAL HISTORY: Back injury with Back pain status post fall COMPARISON: None TECHNIQUE: Computed axial tomography of thoracic spine was obtained with coronal and sagittal recons truction. All CT scans are performed using dose optimization technique as appropriate and may include automated exposure control or mA/KV adjustment according to patient size. FINDINGS: No acute fracture. An old mild fracture involves a lower thoracic vertebral body No dislocation Central spinal stenosis is not noted. Mild spondylosis involves the thoracic spine IMPRESSION: Negative for an acute thoracic fracture. If patient continues have symptoms to suggest s mandy cord pathology MRI would be recommended If the patient has clinical symptoms to suggest spinal cord pathology then MRI would be recommended.
--- NOTE | 2020-05-25 14:23 | RAD REPORT ---
EXAM DESCRIPTION: CT - Head C Spine Mpr Wo Con - 05/24/2020 9:09 pm CLINICAL HISTORY: Head and neck injury status post fall. Head and neck pain COMPARISON: 2017 TECHNIQUE: Computed axial tomography of the head and cervical spine was obtained. Sagittal and coronal reconstruction was performed. All CT scans are performed using dose optimization technique as appropriate and may include automated exposure control or mA/KV adjustment according to patient size. FINDINGS: An intracranial bleed is not seen. The ventricles are normal in caliber. An extra-axial fl uid collection is not noted.Fluid within the visualized sinuses and mastoids is not seen A cervical fracture is not visualized. No dislocation is noted. Minimal anterior subluxation C4 on C5 and C5 on C6 is unchanged. Spondylosis involves the mid and distal cervical spine IMPRESSION: No acute intracranial abnormality is seen. A cervical fracture is not visualized. If the patient continues to have symptoms to suggest intracra nial /spinal cord pathology then MRI would be recommended
== END 2020-05-24 17:19 | disposition home or self-care (01) ==
LOC: ER 15:00
DX: G89.11 Acute pain due to trauma (principal); W07.XXXA Fall from chair, initial encounter; Y93.9 Activity, unspecified; Y92.9 Unspecified place or not applicable; I10 Essential (primary) hypertension
CPT/HCPCS: 70450; 72125; 72128; 99283

== ENCOUNTER 2023-05-12 15:06 | Emergency (ER) | payer OTHER ==
[2023-05-12] MEDS ORDERED: NA CHLORIDE 0.9% 500 ML ONE (16:33)
--- NOTE | 2023-05-12 16:35 | RAD REPORT ---
EXAM DESCRIPTION: RAD - Chest Single View - 05/12/2023 4:17 pm CLINICAL HISTORY: COUGH Chest pain. COMPARISON: Chest Pa And Lat (2 Views) dated 05/03/2023; Chest Single View dated 01/05/2020; Chest Sin gle View dated 02/06/2019; Chest Single View dated 06/04/2018 FINDINGS: Portable technique limits examination quality. Mild interstitial pulmonary edema. The heart is mildly enlarged in size. No displaced fractures.Aorti c atherosclerosis. IMPRESSION: Mild CHF.
--- NOTE | 2023-05-12 16:54 | RAD REPORT ---
EXAM DESCRIPTION: US - Abdomen Exam Limited - 05/12/2023 4:45 pm CLINICAL HISTORY: RUQ pain COMPARISON: No comparisons FINDINGS: The gallbladder is surgically absent. The common bile duct is mildly enlarged measuring 11 mm.. The liver demonstrates no findings of intrahepatic biliary dilatation. IMPRESSION: Cholecystectomy with mildly prominent common bile duct.
[2023-05-12 18:04] LABS: Absolute Lymphocytes (CBC) 1.6 K/uL (0.7-4.9); Hematocrit 36.2 % (36.0-45.0); Lymphocytes % 13.3 % (15.3-44.8); MCV 95.3 fL (80-100); MPV 8.4 fL (7.6-11.3)
[2023-05-12 18:21] LABS: Albumin 3.6 g/dL (3.4-5.0); Bilirubin Direct 0.2 mg/dL (0-0.2); Bilirubin Indirect, Calculated 0.5 mg/dL (0.2-0.8); Bilirubin Total 0.7 mg/dL (0.2-1.0); Magnesium 1.5 mg/dL (1.6-2.4); Potassium 4.1 mEq/L (3.5-5.1); Protein, Total 8.9 g/dL (6.4-8.2); Troponin High Sensitivity 6.6 pg/mL (<58.9)
[2023-05-12 20:06] LABS: SARS-CoV-2 Antigen Rapid Res Positive (Negative)
--- NOTE | 2023-05-12 20:38 | RAD REPORT ---
EXAM DESCRIPTION: CT - Chest Abd Pelvis Wo Con - 05/12/2023 8:30 pm CLINICAL HISTORY: Chest and abdomen pain. abdomen pain;Chest pain COMPARISON: <Comparisons> TECHNIQUE: A limited noncontrast study was performed. All CT scans are performed using dose optimization technique as appropriate and may include automated exposure control or mA/KV adjustment according to patient size. FINDINGS: Posterior right eighth, ninth and tenth rib fractures. Bibasilar lung opacities are present with trace pleural fluid.Small hiatal hernia.No pleural or peric ardial effusion.No intrathoracic adenopathy.Cholecystectomy clips. The liver, spleen, pancreas, adrenal glands and kidneys are within normal limits. No bowel obstruction, free air, free fluid or abscess. Significant stool is present throughout the co lizett. Colonic diverticulosis is present without diverticulitis. No pathologic lymphadenopathy in the abdomen or pelvis. Moderate lumbar degenerative changes. IMPRESSION: Mildly displaced right posterior eighth, ninth and tenth rib fractures. Mild bibasilar lung opacity with trace pleural fluid. Significant retained stool.
[2023-05-12] MEDS ORDERED: NA CHLORIDE 0.9% 250 ML ONE (21:33)
[2023-05-12] MEDS ORDERED: FENTANYL CITR 100 MCG/2 ML ONE ×2 (21:34→21:49)
[2023-05-12] MEDS ORDERED: ACETAMINOPHEN 325 MG TABLET ONE (21:48)
[2023-05-12 22:05] LABS: Urine Bacteria None Seen /HPF (<20); Urine Bilirubin NEGATIVE (Negative); Urine Blood Negative (Negative); Urine Clarity Clear (Clear); Urine Color Light-Yellow (Yellow); Urine Glucose NEGATIVE (Negative); Urine Protein TRACE (Negative); Urine RBC <5 /HPF (None Seen); Urine Urobilinogen Normal (Normal); Urine pH 5.5 (5.0-7.0)
--- NOTE | 2023-05-12 22:40 | EDPHYS ---
Physician Documentation [facility] Name: Meredith King Age: 77 yrs Sex: Female : 1945 Arrival Date: 05/12/2023 Time: 15:06 Bed 18 Private MD: ED Physician Kenny Nunez HPI: 05/12 15:40 This 77 yrs old Black Female presents to ER via EMS with complaints of Cough, Upper cp Abdominal Pain. 15:40 The patient or guardian reports cough, that is intermittent. cp 15:40 Onset: The symptoms/episode began/occurred 3 day(s) ago. Severity of symptoms: in the emergency department the symptoms are unchanged, despite home interventions. Associated signs and symptoms: Pertinent positives: right side chest and abdomen pain, Pertinent negatives: fever, vomiting. 15:40 Patient brought to ED by son who reports patient with HX of dementia. Reports cough for cp past 3 days. No fever. 21:00 Son reports patient slipped and fell while in shower 2 days ago and since has cp complained right side chest/abdomen pain. Historical: - Allergies: 15:15 No Known Drug Allergies; bp - Home Meds: 15:15 acetaminophen-codeine 300-30 mg Oral tab 1 tab twice a day [Active]; amlodipine 10 mg bp tab 1 tab once daily [Active]; Bystolic Oral [Active]; cyclobenzaprine 10 mg Oral tab 1 tab 2 times per day [Active]; gabapentin 600 mg Oral tab 1 tab twice a day [Active]; glyburide 5 mg Oral tab 1 tab 2 times per day [Active]; lorazepam 0.5 mg Oral tab 1 tab 2 times per day [Active]; Metformin Oral [Active]; tramadol 50 mg Oral tab 2 tabs twice a day [Active]; promethazine 25 mg Oral tab 1 tab 2 times per day [Active]; potassium chloride 10 mEq Oral cpER 1 cap once daily [Active]; - PMHx: 15:15 Hypertension; "slight case of breathing issues,"; Chronic pain; Arthritis; Diabetes - bp NIDDM; - Immunization history:: Adult Immunizations up to date. - Social history:: Smoking status: unknown. ROS: 15:45 Constitutional: Positive for poor PO intake, Negative for fever. cp 15:45 Respiratory: Positive for cough, with no reported sputum, Negative for wheezing. cp 15:45 ENT: Negative for drainage from ear(s), ear pain, sore throat, difficulty swallowing, cp difficulty handling secretions. 15:45 Abdomen/GI: Negative for vomiting, diarrhea, constipation. 15:45 Skin: Negative for rash. 15:45 Neuro: Negative for altered mental status. 15:45 All other systems are negative. Exam: 15:50 Constitutional: The patient appears in no acute distress, alert, awake, cp non-diaphoretic, non-toxic, well developed, well nourished, overweight 15:50 Head/Face: Normocephalic, atraumatic. cp 15:50 Eyes: Periorbital structures: appear normal, Conjunctiva: normal, no exudate, no injection, Sclera: no appreciated abnormality, Lids and lashes: appear normal, bilaterally. 15:50 ENT: External ear(s): are unremarkable, Nose: is normal, Mouth: Lips: moist, Oral mucosa: pink and intact, moist, Posterior pharynx: Airway: no evidence of obstruction, patent, erythema, is not appreciated, exudate, is not appreciated. 15:50 Neck: ROM/movement: is normal, is supple, without pain, no range of motions limitations, no meningismus. 15:50 Chest/axilla: Inspection: normal, Palpation: crepitus, is not appreciated, tenderness, that is moderate, of the right lower lateral chest. 15:50 Cardiovascular: Rate: normal, Rhythm: regular, Edema: is not appreciated, JVD: is not appreciated. 15:50 Respiratory: the patient does not display signs of respiratory distress, Respirations: labored breathing, is not present, shallow respirations, that is mild, Breath sounds: decreased breath sounds, are not appreciated, stridor, is not appreciated, wheezing: is not appreciated. 15:50 Abdomen/GI: Inspection: abdomen appears normal, Bowel sounds: active, all quadrants, Palpation: soft, in all quadrants, moderate abdominal tenderness, in the right lateral upper abdomen. 15:50 Back: CVA tenderness, is absent, vertebral tenderness, is not appreciated. 15:50 Skin: cellulitis, is not appreciated, no rash present. 15:50 Neuro: Orientation: no acute changes, per family, Mentation: no acute changes, per family, Motor: moves all fours, strength is normal. 16:15 ECG was reviewed by the Attending Physician. Vital Signs: 15:13 BP 140 / 50; Pulse 93; Resp 19; Temp 98; Pulse Ox 94% ; bp 17:17 BP 182 / 69; Pulse 82; Resp 16; Pulse Ox 100% ; bp 18:36 BP 180 / 76; Pulse 79; Resp 18; Pulse Ox 94% ; bp 19:44 BP 177 / 74; Pulse 78; Resp 17 S; Pulse Ox 97% on R/A; lg3 22:12 BP 160 / 75; Pulse 80; Resp 17 S; Pulse Ox 100% on R/A; lg3 MDM: 15:24 Patient medically screened. 16:00 Differential Diagnosis: Bronchitis Influenza Viral Syndrome Pneumonia Other sepsis. 22:38 Data reviewed: vital signs, nurses notes, lab test result(s), EKG, radiologic studies, cp CT scan, plain films. 22:38 I considered the following discharge prescriptions or medication management in the emergency department Medications were administered in the Emergency Department. See MAR. 22:38 Historians other than the Patient: Daughter/Son: son provides HPI. Care significantly cp affected by the following chronic conditions: Diabetes, Hypertension, dementia. Counseling: I had a detailed discussion with the patient and/or guardian regarding: the historical points, exam findings, and any diagnostic results supporting the discharge/admit diagnosis, lab results, radiology results, to return to the emergency department if symptoms worsen or persist or if there are any questions or concerns that arise at home. Response to treatment: the patient's symptoms have markedly improved after treatment, VSS. No signs of respiratory distress. Will discharge to home for continued monitoring. 05/12 15:38 Order name: Basic Metabolic Panel; Complete Time: 18:32 05/12 21:09 Interpretation: Normal except: CL 108; GLUC 121; BUN 25; GFR 68. 05/12 15:38 Order name: CBC with Diff; Complete Time: 18:32 05/12 21:09 Interpretation: Normal except: WBC 11.70; RBC 3.80; LINA% 78.0; LYM% 13.3; NEUT A 9.1. 05/12 15:38 Order name: LFT's; Complete Time: 18:32 05/12 15:38 Order name: Magnesium; Complete Time: 19:32 05/12 19:32 Interpretation: Abnormal: MG 1.5. cp / 15:38 Order name: NT PRO-BNP; Complete Time: 19:32 cp 05/12 15:38 Order name: Troponin HS; Complete Time: 19:32 cp 05/12 15:38 Order name: Lactate w/ 2H reflex if indic.; Complete Time: 19:32 cp 05/12 15:38 Order name: Urinalysis W/Microscopic; Complete Time: 22:18 cp 05/12 19:43 Order name: SARS RAPID; Complete Time: 21:07 lg3 05/12 21:07 Interpretation: Reviewed. cp 05/12 19:43 Order name: Flu; Complete Time: 21:07 3 05/12 21:07 Interpretation: Reviewed. 05/12 19:43 Order name: RSV; Complete Time: 21:07 [facility] 05/12 21:08 Interpretation: Reviewed. cp 05/12 15:38 Order name: XRAY Chest (1 view); Complete Time: 17:04 cp 05/12 15:38 Order name: US Abdomen Limited; Complete Time: 17:04 cp 05/12 17:04 Interpretation: Report reviewed. cp 05/12 20:13 Order name: Chest Abd Pelvis Wo Con; Complete Time: 21:07 EDMS 05/12 21:10 Order name: INCENTIVE SPIROMETRY cp 05/12 15:38 Order name: EKG; Complete Time: 15:39 cp 05/12 15:38 Order name: Cardiac monitoring; Complete Time: 15:43 cp 05/12 15:38 Order name: EKG - Nurse/Tech; Complete Time: 16:14 cp 05/12 15:38 Order name: Labs collected and sent; Complete Time: 17:52 cp 05/12 15:38 Order name: O2 Per Protocol; Complete Time: 15:43 cp 05/12 15:38 Order name: O2 Sat Monitoring; Complete Time: 15:43 cp 05/12 21:33 Order name: Cath; Complete Time: 21:54 cp EC:15 Rate is 85 beats/min. Rhythm is regular. IA interval is normal. QRS interval is normal. cp QT interval is normal. T waves are Inverted in lead aVR. Interpreted by me. Reviewed by me. Administered Medications: 17:05 Not Given (Physician Discretion): NS 0.9% IV 500 ml IV at 100 ml/hr continuous cp 21:28 Not Given (no IV accesss): fentaNYL (PF) IVP 25 mcg IVP once lg3 21:28 Not Given (no iV accesss): NS 0.9% IV 250 ml IV at bolus once lg3 21:54 Drug: fentaNYL (PF) IM 25 mcg Route: IM; Site: right deltoid; lg3 23:02 Follow up: Response: No adverse reaction; Marked relief of symptoms; Pain is decreased lg3 21:54 Drug: Acetaminophen PO 650 mg Route: PO; lg3 23:03 Follow up: Response: No adverse reaction; Marked relief of symptoms; Pain is decreased lg3 22:48 Drug: Magnesium Oxide PO 400 mg Route: PO; lg3 23:03 Follow up: Response: No adverse reaction lg3 Disposition Summary: 05/12/23 22:39 Discharge Ordered Location: Home cp Problem: new cp Symptoms: have improved cp Condition: Stable cp Diagnosis - Pneumonia due to SARS-associated coronavirus cp - Multiple fractures of ribs, right side, initial encounter for closed fracture cp - Fall on same level, unspecified cp Followup: cp - With: Private Physician - When: 2 - 3 days - Reason: Recheck today's complaints Discharge Instructions: - Discharge Summary Sheet cp - Fall Prevention in the Home, Adult cp - Rib Fracture cp - How to Use an Incentive Spirometer cp - Aspirin and Your Heart cp - COVID-19 cp - 10 Things You Can Do to Manage Your COVID-19 Symptoms at Home - [facility] (06/02/2021) cp Forms: - Medication Reconciliation Form cp - Thank You Letter cp - Antibiotic Education cp - Prescription Opioid Use cp Prescriptions: - Paxlovid 150-100 mg Oral Tablet, Dose Pack - take 1 dose pack by ORAL route per package directions; 30 tablet; Refills: 0, cp Product Selection Permitted - acetaminophen-codeine 300-30 mg Oral tablet - take 2 tablet by ORAL route every 8-10 hours; 16 tablet; Refills: 0, Product cp Selection Permitted - Zithromax Z-Hira 250 mg Oral Tablet - take 1 tablet by ORAL route as directed for 5 days Day 1 - take two (2) tablets cp one time. Day 2, 3, 4 , 5 take one (1) tablet once daily.; 6 tablet; Refills: 0, Product Selection Permitted Signatures: Dispatcher [employer] EDMiko Monterroso, IMPORT CLERK-C IMPORT CLERK-Cla1 Kenny Zhao PA PA cp Gaetano Wong, RN RN bp Sumi Cabrales, ANAID RN lg3 Corrections: (The following items were deleted from the chart) 16:20 16:19 This 77 yrs old Black Female presents to ER via EMS with complaints of Cough, cp Upper Abdominal Pain. cp 19:40 15:39 COVID-19/FLU A+B/RSV+MOL.LAB.BRZ ordered. EDMS EDMS 20:13 19:34 Chest Abdomen Pelvis W Con+CT.RAD.BRZ ordered. EDMS EDMS
--- NOTE | 2023-05-12 22:40 | ER ---
Nurse's Notes [facility] Name: Meredith King Age: 77 yrs Sex: Female : 1945 Arrival Date: 05/12/2023 Time: 15:06 Bed 18 Private MD: Diagnosis: Pneumonia due to SARS-associated coronavirus;Multiple fractures of ribs, right side, initial encounter for closed fracture;Fall on same level, unspecified Presentation: 05/12 15:13 Chief complaint: EMS states: COUGH x3 DAYS. Coronavirus screen: At this time, the bp client does not indicate any symptoms associated with coronavirus-19. Ebola Screen: No symptoms or risks identified at this time. Initial Sepsis Screen: Does the patient meet any 2 criteria? No. Patient's initial sepsis screen is negative. Does the patient have a suspected source of infection? Yes: Productive cough/pneumonia. Risk Assessment: Do you want to hurt yourself or someone else? Patient reports no desire to harm self or others. Onset of symptoms is unknown. Care prior to arrival: Glucose check: 102. 15:13 Method Of Arrival: EMS: [facility] bp 15:13 Acuity: ALYSE 3 bp Triage Assessment: 15:15 General: Appears ill, obese, Behavior is appropriate for age. Pain: Denies pain. EENT: bp No deficits noted. Neuro: No deficits noted. Cardiovascular: No deficits noted. Respiratory: Reports cough that is. GI: No signs and/or symptoms were reported involving the gastrointestinal system. : No signs and/or symptoms were reported regarding the genitourinary system. Derm: No deficits noted. Musculoskeletal: No deficits noted. Historical: - Allergies: 15:15 No Known Drug Allergies; bp - Home Meds: 15:15 acetaminophen-codeine 300-30 mg Oral tab 1 tab twice a day [Active]; amlodipine 10 mg bp tab 1 tab once daily [Active]; Bystolic Oral [Active]; cyclobenzaprine 10 mg Oral tab 1 tab 2 times per day [Active]; gabapentin 600 mg Oral tab 1 tab twice a day [Active]; glyburide 5 mg Oral tab 1 tab 2 times per day [Active]; lorazepam 0.5 mg Oral tab 1 tab 2 times per day [Active]; Metformin Oral [Active]; tramadol 50 mg Oral tab 2 tabs twice a day [Active]; promethazine 25 mg Oral tab 1 tab 2 times per day [Active]; potassium chloride 10 mEq Oral cpER 1 cap once daily [Active]; - PMHx: 15:15 Hypertension; "slight case of breathing issues,"; Chronic pain; Arthritis; Diabetes - bp NIDDM; - Immunization history:: Adult Immunizations up to date. - Social history:: Smoking status: unknown. Screenin:17 [facility] ED Fall Risk Assessment (Adult) History of falling in the last 3 months, bp including since admission No falls in past 3 months (0 pts). Abuse screen: Denies threats or abuse. Denies injuries from another. Nutritional screening: No deficits noted. Tuberculosis screening: No symptoms or risk factors identified. Assessment: 15:17 General: SEE TRIAGE NOTE. bp 17:17 Reassessment: No changes from previously documented assessment. Patient is alert, bp oriented x 3, equal unlabored respirations, skin warm/dry/pink. 17:53 Reassessment: UNABLE TO OBTAIN PIV, ERP NOTIFIED. bp 18:36 Reassessment: Patient appears in no apparent distress at this time. Patient and/or bp family updated on plan of care and expected duration. Pain level reassessed. 19:44 General: Appears in no apparent distress. comfortable, Behavior is calm, cooperative. lg3 Pain: Complains of pain in generalized body aches. Neuro: No deficits noted. [place] Agitation-Sedation Scale (RASS): 0 - Alert and Calm Level of Consciousness is awake, alert, obeys commands, Oriented to person, place, time, situation. Cardiovascular: No deficits noted. Denies chest pain, Capillary refill < 3 seconds Clubbing of nail beds is absent JVD is absent Patient's skin is warm and dry. Respiratory: No deficits noted. Reports cough that is Airway is patent Respiratory effort is even, unlabored, Respiratory pattern is regular, symmetrical. GI: No deficits noted. No signs and/or symptoms were reported involving the gastrointestinal system. Abdomen is round non-distended, obese. : No deficits noted. No signs and/or symptoms were reported regarding the genitourinary system. EENT: No deficits noted. No signs and/or symptoms were reported regarding the EENT system. Derm: No deficits noted. No signs and/or symptoms reported regarding the dermatologic system. Skin is intact, is healthy with good turgor, Skin is dry, Skin is normal, Skin temperature is warm. Musculoskeletal: Circulation, motion, and sensation intact. Range of motion: intact in all extremities, Reports generalized weakness. 20:52 Reassessment: Patient appears in no apparent distress at this time. No changes from lg3 previously documented assessment. Patient and/or family updated on plan of care and expected duration. Pain level reassessed. Patient is alert, oriented x 3, equal unlabored respirations, skin warm/dry/pink. 22:16 Reassessment: Patient appears in no apparent distress at this time. No changes from lg3 previously documented assessment. Patient and/or family updated on plan of care and expected duration. Pain level reassessed. Patient is alert, oriented x 3, equal unlabored respirations, skin warm/dry/pink. Patient denies pain at this time. Patient states feeling better. Vital Signs: 15:13 BP 140 / 50; Pulse 93; Resp 19; Temp 98; Pulse Ox 94% ; bp 17:17 BP 182 / 69; Pulse 82; Resp 16; Pulse Ox 100% ; bp 18:36 BP 180 / 76; Pulse 79; Resp 18; Pulse Ox 94% ; bp 19:44 BP 177 / 74; Pulse 78; Resp 17 S; Pulse Ox 97% on R/A; lg3 22:12 BP 160 / 75; Pulse 80; Resp 17 S; Pulse Ox 100% on R/A; lg3 ED Course: 15:09 Patient arrived in ED. ds4 15:13 Gaetano Wong, RN is Primary Nurse. bp 15:15 Triage completed. bp 15:17 Arm band placed on. bp 15:17 Patient has correct armband on for positive identification. Bed in low position. Call bp light in reach. Side rails up X2. Adult w/ patient. 15:24 Kenny Zhao PA is PHCP. cp 15:24 Kenny Nunez MD is Attending Physician. cp 16:19 XRAY Chest (1 view) In Process Unspecified. EDMS 16:46 US Abdomen Limited In Process Unspecified. EDMS 17:48 Initial lab(s) drawn, by me, sent to lab. Missed attempt(s): 24 gauge in left wrist. aa5 Bleeding controlled, band aid applied, catheter tip intact. 17:52 unable to collect PT at this time and obtain IV access, provider notified. Pt is hard aa5 stick. 19:43 RSV Sent. lg3 19:43 Flu Sent. lg3 19:43 SARS RAPID Sent. lg3 19:44 Client placed on continuous cardiac and pulse oximetry monitoring. NIBP monitoring lg3 applied. cardiac monitor technician on. Door closed. Noise minimized. Warm blanket given. Family accompanied patient. 19:44 Patient maintains SpO2 saturation greater than 95% on room air. lg3 19:46 RSV Sent. bc6 19:46 Flu Sent. bc6 19:46 SARS RAPID Sent. bc6 20:32 Chest Abd Pelvis Wo Con In Process Unspecified. EDMS 21:55 Straight cath inserted, using sterile technique, 16 Fr. Specimen obtained. Returned lg3 clear yellow urine. Patient tolerated well. 23:03 No provider procedures requiring assistance completed. Patient did not have IV access lg3 during this emergency room visit. Administered Medications: 17:05 Not Given (Physician Discretion): NS 0.9% IV 500 ml IV at 100 ml/hr continuous cp 21:28 Not Given (no IV accesss): fentaNYL (PF) IVP 25 mcg IVP once lg3 21:28 Not Given (no iV accesss): NS 0.9% IV 250 ml IV at bolus once lg3 21:54 Drug: fentaNYL (PF) IM 25 mcg Route: IM; Site: right deltoid; lg3 23:02 Follow up: Response: No adverse reaction; Marked relief of symptoms; Pain is decreased lg3 21:54 Drug: Acetaminophen PO 650 mg Route: PO; lg3 23:03 Follow up: Response: No adverse reaction; Marked relief of symptoms; Pain is decreased lg3 22:48 Drug: Magnesium Oxide PO 400 mg Route: PO; lg3 23:03 Follow up: Response: No adverse reaction lg3 Medication: 17:17 VIS not applicable for this client. bp Outcome: 22:39 Discharge ordered by MD. cp 23:03 Discharged to home via wheelchair, with family. lg3 23:03 Condition: stable 23:03 Discharge instructions given to patient, dried yeast supervisor, Instructed on discharge instructions, follow up and referral plans. medication usage, Demonstrated understanding of instructions, follow-up care, medications, Prescriptions given X 3. 23:03 Patient left the ED. lg3 Signatures: Dispatcher [employer] Alejandra Jang RN RN aa5 [address] Velasco ds4 Kenny Zhao PA PA cp Peltier, Brian, RN RN bp Sumi Cabrales RN RN lg3 Yari Rosales bc6
[2023-05-12] MEDS ORDERED: MAGNESIUM OXIDE 400 MG TAB ONE (22:56)
[2023-05-12 23:09] VITALS: TEMP 98
[2023-05-12 23:14] VITALS: BP 160/75; O2SAT 100
--- NOTE | 2023-05-13 17:12 | EKG ---
Test Date: 2023-05-12 Test Time: 16:08:44 Community Education Coordinator: LAURA MEASUREMENT RESULTS: Intervals: Rate: 85 PA: 148 QRSD: 74 QT: 364 QTc: 433 [place]: P: 79 PA: 148 QRS: 61 T: 56 INTERPRETIVE STATEMENTS: Normal sinus rhythm Cannot rule out Anterior infarct, age undetermined Abnormal ECG Compared to ECG 02/06/2019 13:16:23 Myocardial infarct finding now present Electronically Signed On 05-13-23 17:10:00 CDT by Oh Bryan
== END 2023-05-12 23:03 | disposition home or self-care (01) ==
LOC: ER 15:06
DX: U07.1 COVID-19 (principal); J12.82 Pneumonia due to coronavirus disease 2019; S22.41XA Multiple fractures of ribs, right side, initial encounter for closed fracture; W18.30XA Fall on same level, unspecified, initial encounter; I10 Essential (primary) hypertension; E11.9 Type 2 diabetes mellitus without complications
CPT/HCPCS: 93005; 85025; 81001; 80048; 36415; 83735; 80076; 83605; 84484; 83880; 87807; 87804 ×2; 71250; 74176; 71045; 76705; 51702; 96372; 99285; 87811; J3010 ×2; J7050; J7040

== ENCOUNTER 2023-10-06 20:45 | Emergency (ER) | payer OTHER ==
--- NOTE | 2023-10-06 22:33 | RAD REPORT ---
EXAM DESCRIPTION: RAD - Shoulder Left 2 View - 10/06/2023 10:09 pm CLINICAL HISTORY: PAIN COMPARISON: <Comparisons> FINDINGS: Moderate AC joint and glenohumeral joint arthritic changes are present. No acute fracture or dislocation seen.
--- NOTE | 2023-10-06 22:34 | RAD REPORT ---
EXAM DESCRIPTION: RAD - Humerus Left - 10/06/2023 10:09 pm CLINICAL HISTORY: PAIN COMPARISON: <Comparisons> FINDINGS: Diffuse osteopenia is noted. No acute fracture or dislocation is seen.
--- NOTE | 2023-10-06 22:38 | ER ---
Nurse's Notes [facility] Name: Meredith King Age: 78 yrs Sex: Female : 1945 Arrival Date: 10/06/2023 Time: 20:45 Bed IW1 Private MD: Diagnosis: Other sprain of left shoulder joint Presentation: 10/06 21:18 Chief complaint: Patient's son or daughter states: the patient fell on Saturday ap3 10/04/2023, and has been favoring her left arm since. Patients son is concerned and would like it evaluated. Care prior to arrival: None. Mechanism of Injury: Fall Trauma event details: Injury occurred in the [facility], Injury occurred: at home. Injury occurred: October 04, 2023. 21:18 Acuity: ALYSE 4 ap3 21:18 Method Of Arrival: Wheelchair ap3 21:21 Coronavirus screen: At this time, the client does not indicate any symptoms associated ap3 with coronavirus-19. Ebola Screen: No symptoms or risks identified at this time. Initial Sepsis Screen: Does the patient meet any 2 criteria? No. Patient's initial sepsis screen is negative. Does the patient have a suspected source of infection? No. Patient's initial sepsis screen is negative. Risk Assessment: Do you want to hurt yourself or someone else? Patient reports no desire to harm self or others. Onset of symptoms was October 04, 2023. Triage Assessment: 21:20 General: Appears in no apparent distress. Behavior is quiet. Pain: Complains of pain in ap3 left arm. Neuro: Level of Consciousness is awake, alert, Oriented to person. Cardiovascular: Patient's skin is warm and dry. Respiratory: Airway is patent Respiratory effort is even, unlabored, Respiratory pattern is regular, symmetrical. Musculoskeletal: Reports pain in left arm. Historical: - Allergies: 21:19 No Known Allergies; ap3 - PMHx: 21:19 Arthritis; Chronic pain; Diabetes - NIDDM; Hypertension; ap3 21:20 Dementia; ap3 - Immunization history:: Client reports receiving the 2nd dose of the Covid vaccine. - Social history:: Smoking status: Patient denies any tobacco usage or history of. Screenin:21 Abuse screen: Denies threats or abuse. Nutritional screening: No deficits noted. ap3 Tuberculosis screening: No symptoms or risk factors identified. 22:56 [facility] ED Fall Risk Assessment (Adult) Score/Fall Risk Level 3 or more points = High as6 Risk. Vital Signs: 21:21 BP 124 / 63; Pulse 64; Resp 18; Temp 97.8; Pulse Ox 100% ; Weight 84.37 kg; ap3 ED Course: 20:48 Patient arrived in ED. jj6 20:56 Jennifer [facility]ios [facility]-C [facility] sb4 20:56 Ivan Short MD is Attending Physician. sb4 21:19 Triage completed. ap3 21:21 Arm band placed on right wrist. ap3 22:11 Shoulder Left (2 View) XRAY In Process Unspecified. EDMS 22:11 Humerus Left XRAY In Process Unspecified. EDMS 22:56 Bed in low position. Call light in reach. Adult w/ patient. Provided Education on: as6 follow up. 22:56 No provider procedures requiring assistance completed. Patient did not have IV access as6 during this emergency room visit. Administered Medications: No medications were administered Medication: 22:56 VIS not applicable for this client. as6 Outcome: 22:38 Discharge ordered by . sb4 22:56 Discharged to home via wheelchair, with family, as6 22:56 Condition: stable 22:56 Discharge instructions given to patient, family, Instructed on discharge instructions, follow up and referral plans. Demonstrated understanding of instructions, follow-up care, 22:57 Patient left the ED. as6 Signatures: Dispatcher [employer] Adelina Shi RN RN ap3 Jessica Rain jj6 Reilly Austin RN RN as6 Jennifer Rios PA-C PA-C sb4
--- NOTE | 2023-10-06 22:38 | EDPHYS ---
Physician Documentation [facility] Name: Meredith King Age: 78 yrs Sex: Female : 1945 Arrival Date: 10/06/2023 Time: 20:45 Bed IW1 Private MD: ED Physician Ivan Short HPI: 10/07 02:55 This 78 yrs old Black Female presents to ER via Wheelchair with complaints of Fall sb4 Injury, Shoulder Pain, Arm Pain. 03:03 son states that patient fell a few days ago onto her left side and he has noticed that sb4 she has not been using that arm as much. he wanted to have it evaluated to make sure it is not broken. patient has dementia and cannot fully verbalize pain/subjective complaint. she does not have any complaints of pain at this time. she does report tenderness when palpating humeral head. Historical: - Allergies: 10/06 21:19 No Known Allergies; ap3 - PMHx: 21:19 Arthritis; Chronic pain; Diabetes - NIDDM; Hypertension; ap3 21:20 Dementia; ap3 - Immunization history:: Client reports receiving the 2nd dose of the Covid vaccine. - Social history:: Smoking status: Patient denies any tobacco usage or history of. ROS: 10/07 03:03 Constitutional: Negative for fever, chills, and weight loss, sb4 MS/extremity: Positive for underuse of left arm, All other systems are negative, Exam: 03:03 Head/Face: Normocephalic, atraumatic. Eyes: Extra-ocular motions intact. Periorbital sb4 areas with no swelling, redness, or edema. ENT: Mucous membranes moist. Skin: Warm, dry with normal turgor. Normal color with no rashes, no lesions, and no evidence of cellulitis. Neuro: Awake and alert, GCS 15, oriented to person, place, time, and situation. Motor strength 5/5 in all extremities. Sensory grossly intact. 03:03 Constitutional: The patient appears in no acute distress, alert, awake, obese, 03:03 Musculoskeletal/extremity: full ROM in left arm, mild tenderness to humeral head on palpation, pulses intact, no numbness/tingling. Vital Signs: 10/06 21:21 BP 124 / 63; Pulse 64; Resp 18; Temp 97.8; Pulse Ox 100% ; Weight 84.37 kg; ap3 MDM: 21:22 Patient medically screened. sb4 10/07 03:03 Differential diagnosis: contusion, fracture, sprain, strain. Data reviewed: vital sb4 signs, nurses notes, radiologic studies, and as a result, I will discharge patient. Historians other than the Patient: Daughter/Son: son. Care significantly affected by the following chronic conditions: Diabetes, Hypertension, Obesity. Counseling: I had a detailed discussion with the patient and/or guardian regarding the historical points, exam findings, and any diagnostic results supporting the discharge/admit diagnosis, radiology results, to return to the emergency department if symptoms worsen or persist or if there are any questions or concerns that arise at home. 10/06 21:24 Order name: Shoulder Left (2 View) XRAY; Complete Time: 22:34 sb4 10/06 21:24 Order name: Humerus Left XRAY; Complete Time: 22:34 sb4 Administered Medications: No medications were administered Disposition Summary: 10/06/23 22:38 Discharge Ordered Notes: Location: Home sb4 Problem: new sb4 Symptoms: are unchanged sb4 Condition: Stable sb4 Diagnosis - Other sprain of left shoulder joint sb4 Followup: sb4 - With: Emergency Department - When: As needed - Reason: Trouble breathing, Worsening of condition Discharge Instructions: - Discharge Summary Sheet sb4 - Shoulder Sprain sb4 Forms: - Medication Reconciliation Form sb4 - Thank You Letter sb4 - Antibiotic Education sb4 - Prescription Opioid Use sb4 - Patient Portal Instructions sb4 - Leadership Thank You Letter sb4 Addendum: 10/08/2023 10:37 I was immediately available for consultation during this patient's visit. I did not e c2 personally see the patient or guide the patient's care. . Signatures: Dispatcher [employer] Adelina Shi RN RN ap3 Jennifer Rios PA-C PAIrish sb4 Ivan Short MD MD ec2
[2023-10-06 23:15] VITALS: BP 124/63; TEMP 97.8; O2SAT 100
== END 2023-10-06 22:57 | disposition home or self-care (01) ==
LOC: ER 20:45
DX: S43.492A Other sprain of left shoulder joint, initial encounter (principal); W19.XXXA Unspecified fall, initial encounter; I10 Essential (primary) hypertension; E11.9 Type 2 diabetes mellitus without complications; M19.90 Unspecified osteoarthritis, unspecified site; F03.90 Unspecified dementia, unspecified severity, without behavioral disturbance, psychotic disturbance, mood disturbance, and anxiety
CPT/HCPCS: 99282

== ENCOUNTER 2024-12-25 18:11 | Emergency (ER) | payer OTHER ==
--- OUTSIDE RECORDS SUMMARY | 2024-12-25 18:14 | XMS REPORT | Continuity of Care Document ---
Author Name Unknown Address [address] [place] [address] [facility] thconnect Address [address] [place] [address] Care Team Providers Care [employer] Commissioner Name Role Phone CRISTIANO HAWKINS Primary Care Physician Unavailab ASA Stallworth Attending Clinician Unavail Asa Ortez MD Attending Clinician KE CABRERA Attending Clinician Unavailable KE CABRERA Attending Clinician Unavailable Payers Payer Name Policy Type Policy Number Effective Date Expirati on Date Source [facility] MEDICARE ADVANTAGE Medicare [id number] 2023 00:00:00 [facility] [id number] 2023 00:00:00 Problems Condition Name Condition Details Condition Category Status Onset Date Resolution Date Last Treatment Date Treating Clinician Comments Source RA (rheumatoi d arthritis) RA (rheumatoi d arthritis) Disease Active 05-08 00:00: 00 Davonte Diallo Memory loss Memory loss Disease Active 05-08 00:00: 00 Davonte Diallo Morbid obesity Morbid obesity Disease Active 05-08 00:00: 00 Davonte Diallo CHAO (generaliz ed anxiety disorder) CAHO (generaliz ed anxiety disorder) Disease Active 05-08 00:00: 00 Davonte Diallo MCI (mild cognitive impairment ) MCI (mild cognitive impairment ) Disease Active 05-08 00:00: 00 Davonte Diallo Dementia Dementia Disease Active 05-08 00:00: 00 Davonte Diallo CVA (cerebrova scular accident) CVA (cerebrova scular accident) Disease Active 05-08 00:00: 00 Davonte Diallo Carotid stenosis, bilateral Carotid stenosis, bilateral Disease Active 05-08 00:00: 00 Davonte Diallo HTN (hypertens ion) HTN (hypertens ion) Disease Active 2019-11 00:00: 00 Davonte Diallo Elevated serum creatinine Elevated serum creatinine Disease Active 2019-11 00:00: 00 Davonte Diallo Osteoarthr itis of multiple joints Osteoarthr itis of multiple joints Disease Active 07-11 00:00: 00 Davonte Diallo Hyperlipid emia Hyperlipid emia Disease Active 07-11 00:00: 00 Davonte Diallo Chronic obstructiv e pulmonary disease Chronic obstructiv e pulmonary disease Disease Active 2015-11 00:00: 00 Davonte Diallo Type 2 diabetes mellitus without complicati on (CMS/HCC) Type 2 diabetes mellitus without complicati on (CMS/HCC) Disease Active 06-25 00:00: 00 Davonte Diallo Metabolic syndrome X Metabolic syndrome X Disease Active 02-16 00:00: 00 Davonte Diallo Depression Depression Disease Active 02-16 00:00: 00 Davonte Diallo Allergies, Adverse Reactions, Alerts Allergy Name Allergy Type Status Severity Reaction(s) Onset Date Inactive Date Treating Clinician Comments Source NO KNOWN ALLERGIE S SYSTEMIC Active MHEOUT NO KNOWN ALLERGIE S SYSTEMIC Active MHEOUT ALLERGIE S NOT ON FILE SYSTEMIC Active MHEOUT NO KNOWN ALLERGIE S SYSTEMIC Active MHEOUT NO KNOWN ALLERGIE S SYSTEMIC Active MHEOUT NO KNOWN ALLERGIE S SYSTEMIC Active MHEOUT NO KNOWN ALLERGIE S Drug Class Active [facility] NO KNOWN ALLERGIE S SYSTEMIC Active MHEOUT NO KNOWN ALLERGIE S SYSTEMIC Active MHEOUT NO KNOWN ALLERGIE S SYSTEMIC Active MHEOUT Social History Social Habit Start Date Stop Date Quantity Comments Source Sexual orientation 2024-05-08 08:53:43 Heterosexual (finding) [facility] Gender identity 2024-02-09 06:01:10 Identifies as female gender (finding) [facility] ASSERTION Possible [facility] Alcoholic beverage intake 2024-12-23 00:00:00 2024-12-23 00:00:00 Ex-drinker (finding) [facility] History of Social function 2024-12-23 00:00:00 2024-12-23 00:00:00 [facility] Tobacco use and exposure 2024-05-08 00:00:00 2024-05-08 00:00:00 Smokeless tobacco non-user [facility] Smoking Status Start Date Stop Date Source Never smoked tobacco [facility] Medications Ordered Medication Name Filled Medication Name Start Date Stop Date Current Medication? Ordering Clinician Indication Dosage Frequency Signature (SIG) Comments Components Source amLODIPine (Norvasc) 5 MG tablet amLODIPine (Norvasc) 5 MG tablet 05-08 14:34: 02 Yes 5mg Q.5D Take 5 mg by mouth in the morning and 5 mg in the evening. [facility] atorvastati n (Lipitor) 40 MG tablet atorvastati n (Lipitor) 40 MG tablet 05-08 14:34: 02 Yes 40mg QD Take 40 mg by mouth 1 time each day. [facility] carvedilol (Coreg) 12.5 MG tablet carvedilol (Coreg) 12.5 MG tablet 05-08 14:34: 02 Yes 12.5mg Take 12.5 mg by mouth in the morning and 12.5 mg in the evening. Take with meals. [facility] folic acid (Folvite) 1 MG tablet folic acid (Folvite) 1 MG tablet 05-08 14:34: 02 Yes 1000ug QD Take 1,000 mcg by mouth 1 time each day. [facility] meloxicam (Mobic) 15 MG tablet meloxicam (Mobic) 15 MG tablet 05-08 14:34: 02 Yes 15mg QD Take 15 mg by mouth 1 time each day. [facility] metFORMIN XR (Glucophage -XR) 500 MG 24 hr tablet metFORMIN XR (Glucophage -XR) 500 MG 24 hr tablet 05-08 14:34: 02 Yes 500mg Take 500 mg by mouth in the morning and 500 mg in the evening. Take with meals. [facility]onte Diallo omeprazole (PriLOSEC) [address] capsule omeprazole (PriLOSEC) [address] capsule 05-08 14:34: 02 Yes 20mg QD Take 20 mg by mouth 1 time each day. [facility] D[facility]lo oxybutynin XL (Ditropan-X L) 10 MG 24 hr tablet oxybutynin XL (Ditropan-X L) 10 MG 24 hr tablet 05-08 14:34: 02 Yes 10mg Q.5D Take 10 mg by mouth in the morning and 10 mg in the evening. [facility]onte Diallo hydrALAZINE (Apresoline ) 25 MG tablet hydrALAZINE (Apresoline ) 25 MG tablet 05-08 14:34: 02 Yes 25mg Q.5D Take 25 mg by mouth in the morning and 25 mg in the evening. Take with food.. Davonte Diallo losartan (Cozaar) 100 MG tablet losartan (Cozaar) 100 MG tablet 05-08 14:34: 02 Yes 100mg QD Take 100 mg by mouth 1 time each day. [facility] Diallo methotrexat e 2.5 MG tablet methotrexat e 2.5 MG tablet 05-08 14:34: 02 Yes 2.5mg QD Take 2.5 mg by mouth 1 time each day. [facility]onte Diallo Multiple Vitamin (Multi-Milana min) tablet Multiple Vitamin (Multi-Milana min) tablet 05-08 14:34: 02 Yes 1{tbl} QD Take 1 tablet by mouth 1 time each day. [facility] Diallo galantamine (Razadyne) 4 MG tablet galantamine (Razadyne) 4 MG tablet 05-08 00:00: 00 05-08 23:59 :00 No 4mg Q.5D Take 1 tablet by mouth in the morning and 1 tablet in the evening. [facility] Diallo memantine (Namenda) 10 MG tablet memantine (Namenda) 10 MG tablet 6-21 00:00: 00 05-08 23:59 :00 No 10mg Q.5D Take 1 tablet by mouth in the morning and 1 tablet in [facility] evening. [facility] DULoxetine (Cymbalta) [address] capsule DULoxetine (Cymbalta) [address] capsule 4-15 00:00: 00 Yes 1{capsu le} QD Take 1 capsule by mouth 1 time each day. [facility] galantamine (Razadyne) 4 MG tablet galantamine (Razadyne) 4 MG tablet 3-22 00:00: 00 05-08 00:00 :00 No 4mg Q.5D Take 4 mg by mouth in the morning and 4 mg in the evening. [facility] memantine (Namenda) 10 MG tablet memantine (Namenda) 10 MG tablet 1-12 00:00: 00 05-08 00:00 :00 No 10mg Q.5D Take 10 mg by mouth in the morning and 10 mg in the evening. [facility] aspirin EC 81 MG EC tablet aspirin EC 81 MG EC tablet 1- 00:00: 00 Yes 81mg QD Take 81 mg by mouth 1 time each day. [facility] Vital Signs Vital Name Observation Time Observation Value Comments Marie germain Systolic blood pressure 2024-12-23 13:50:00 178 mm[Hg] [facility] Diastolic blood pressure 2024-12-23 13:50:00 112 mm[Hg] [facility] Heart rate 2024-12-23 13:50:00 86 /min [facility] Body temperature 2024-12-23 13:50:00 36.22 Quyen [facility] Respiratory rate 2024-12-23 13:50:00 16 /min [facility] Body height 2024-12-23 13:50:00 149.9 cm [facility] Body weight 2024-12-23 13:50:00 69.854 kg [facility] BMI 2024-12-23 13:50:00 31.10 kg/m2 [facility] Systolic blood pressure 2024-12-23 13:50:00 178 mm[Hg] Mary Kay Lloyd [facility] Diastolic blood pressure 2024-12-23 13:50:00 112 mm[Hg] [facility] Heart rate 2024-12-23 13:50:00 86 /min [facility] Body temperature 2024-12-23 13:50:00 36.22 Quyen [facility] Respiratory rate 2024-12-23 13:50:00 16 /min [facility] Body height 2024-12-23 13:50:00 149.9 cm [facility] Body weight 2024-12-23 13:50:00 69.854 kg [facility] BMI 2024-12-23 13:50:00 31.10 kg/m2 [facility] Systolic blood pressure 2024-07-29 15:42:00 160 mm[Hg] Mary Kay Lloyd [facility] Diastolic blood pressure 2024-07-29 15:42:00 94 mm[Hg] [facility] Heart rate 2024-07-29 15:42:00 80 /min [facility] Body temperature 2024-07-29 15:42:00 36.5 [facility] Respiratory rate 2024-07-29 15:42:00 16 /min [facility] Body height 2024-07-29 15:42:00 149.9 cm [facility]rera [facility] Body weight 2024-07-29 15:42:00 75.751 kg [facility] BMI 2024-07-29 15:42:00 33.73 kg/m2 [facility] Systolic blood pressure 2024-07-29 15:42:00 160 mm[Hg] [facility] Diastolic blood pressure 2024-07-29 15:42:00 94 mm[Hg] [facility] Heart rate 2024-07-29 15:42:00 80 /min [facility] Body temperature 2024-07-29 15:42:00 36.5 [facility] Epic Respiratory rate 2024-07-29 15:42:00 16 /min [facility] Body height 2024-07-29 15:42:00 149.9 cm [facility] Body weight 2024-07-29 15:42:00 75.751 kg [facility] BMI 2024-07-29 15:42:00 33.73 kg/m2 [facility] Body height 2024-05-08 14:24:00 153.7 cm [facility] Body weight 2024-05-08 14:24:00 80.922 kg [facility] BMI 2024-05-08 14:24:00 34.27 kg/m2 [facility]rera alo [facility] Oxygen saturation in Arterial blood by Pulse oximetry 2024-05-08 14:24:00 99 /min [facility] Epic Systolic blood pressure 2024-05-08 14:24:00 112 mm[Hg] [facility] Epic Diastolic blood pressure 2024-05-08 14:24:00 67 mm[Hg] [facility] Heart rate 2024-05-08 14:24:00 66 /min [facility] Body temperature 2024-05-08 14:24:00 36.33 Quyen [facility] Respiratory rate 2024-05-08 14:24:00 16 /min [facility] Body height 2024-05-08 14:24:00 153.7 [facility] 2024-05-08 14:24:00 80.922 kg [facility] Salomon[facility] Epic BMI 2024-05-08 14:24:00 34.27 kg/m2 [facility] Epic Oxygen saturation in Arterial blood by Pulse oximetry 2024-05-08 14:24:00 99 /min [facility] Epic Systolic blood pressure 2024-05-08 14:24:00 112 mm[Hg] [facility] Diastolic blood pressure 2024-05-08 14:24:00 67 mm[Hg] [facility] Heart rate 2024-05-08 14:24:00 66 /min [facility] Body temperature 2024-05-08 14:24:00 36.33 Quyen [facility] Epic Respiratory rate 2024-05-08 14:24:00 16 /min [facility] Encounters Start Date/Time End Date/Time Encounter Type Admission Type Attending [facility] Care Department Encounter ID Source 2024-12-23 13:21:43 2024-12-23 14:15:52 Outpatient ASA DUNCAN [facility]OUT M[facility]OUT [id number] [facility]OUT 2024-12-23 13:45:00 2024-12-23 14:00:00 Office Visit Asa Duncan [id number] [facility] 2024-07-29 15:31:10 2024-07-29 16:31:08 Outpatient ASA DUNCAN MHEOUT MHEOUT [id number] MHEOUT 2024-07-29 15:30:00 2024-07-29 16:31:08 Office Visit Asa Duncan Sage [id number] [facility] 2024-05-13 10:00:00 2024-05-13 10:00:00 Outpatient KE JEAN-BAPTISTE ELISHA [facility] [id number] [facility] 2024-05-08 14:13:14 2024-05-08 15:00:32 Outpatient ASA DUNCAN MHEOUT MHEOUT [id number] MHEOUT 2024-05-08 14:00:00 2024-05-08 14:15:00 Office Visit Asa Duncan Sage [id number] [facility]
--- NOTE | 2024-12-25 19:04 | RAD REPORT ---
Procedure: Chest Single View HISTORY: Chest pain COMPARISON: 2023 FINDINGS: The lungs appear clear of acute infiltrate. No significant pleural effusion noted. The heart is mildly enlarged. Old rib fractures.. IMPRESSION: No acute abnormality is displayed.
--- NOTE | 2024-12-25 19:53 | ER ---
Nurse's Notes [facility] Name: Meredith King Age: 79 yrs Sex: Female : 1945 Arrival Date: 12/25/2024 Time: 18:11 Bed 17 Private MD: Diagnosis: Chronic pain, not elsewhere classified Presentation: 12/25 18:26 Chief complaint: EMS states: toned out for pain all over. Patient has a hx of me1 arthritis. Denies cough or other illness. A\T\OX2. BGL 129. Coronavirus screen: At this time, the client does not indicate any symptoms associated with coronavirus-19. Ebola Screen: No symptoms or risks identified at this time. Initial Sepsis Screen: Does the patient meet any 2 criteria? No. Patient's initial sepsis screen is negative. Does the patient have a suspected source of infection? No. Patient's initial sepsis screen is negative. Risk Assessment: Do you want to hurt yourself or someone else? Patient reports no desire to harm self or others. Onset of symptoms is unknown. 18:26 Method Of Arrival: EMS: [facility] [place] 18:26 Acuity: ALYSE 3 me1 Triage Assessment: 18:28 General: Appears uncomfortable, obese, well groomed, well developed, well nourished, me1 Behavior is calm, cooperative, appropriate for age. Pain: Complains of pain in generalized Pain does not radiate. Pain currently is 6 out of 10 on a pain scale. Quality of pain is described as aching, Pain began gradually, Is continuous. EENT: No signs and/or symptoms were reported regarding the EENT system. Neuro: Level of Consciousness is awake, alert, obeys commands, Oriented to person, situation. Cardiovascular: Patient's skin is warm and dry. Respiratory: Airway is patent Respiratory effort is even, unlabored, Respiratory pattern is regular, symmetrical. GI: No signs and/or symptoms were reported involving the gastrointestinal system. : No signs and/or symptoms were reported regarding the genitourinary system. Derm: Skin is intact, is healthy with good turgor, Skin is pink, warm \T\ dry. Musculoskeletal: Reports pain in generalized. Historical: - Allergies: 18:28 No Known Drug Allergies; me1 - PMHx: 18:28 Arthritis; Dementia; Chronic pain; Diabetes - NIDDM; Hypertension; me1 - Immunization history:: Adult Immunizations unknown. - Infectious Disease History:: Denies. - Social history:: Smoking status: unknown. Screenin:30 [facility] ED Fall Risk Assessment (Adult) History of falling in the last 3 months, me1 including since admission No falls in past 3 months (0 pts) Confusion or Disorientation No (0 pts) Intoxicated or Sedated No (0 pts) Impaired Gait Yes (1 pt) Mobility Assist Device Used Yes (1 pt) Altered Elimination No (0 pt) Score/Fall Risk Level 0 - 2 = Low Risk Maintained a safe environment, Provided non-skid footwear, Hourly rounding (assess needs \T\ fall precautionary measures) done. Abuse screen: Denies threats or abuse. Nutritional screening: No deficits noted. Tuberculosis screening: No symptoms or risk factors identified. Assessment: 18:30 General: See triage assessment.. me1 19:14 General: Caregiver at bedside, Patient is refusing care and wants to go home. Informed nh1 AYAN Jewell.. 20:15 Reassessment: Patient and/or family updated on plan of care and expected duration. Pain br2 level reassessed. Patient is alert, oriented x 3, equal unlabored respirations, skin warm/dry/pink. PT STATES SHE REFUSING ALL LAB WORK AND SWABS. PT STATES SHE JUST WANTS TO GO HOME. PT HAS CAREGIVER AT BEDSIDE. Vital Signs: 18:26 BP 192 / 61; Pulse 87; Resp 17; Temp 98; Pulse Ox 97% ; Weight 74.39 kg; Pain 6/10; me1 19:00 BP 194 / 76; Pulse 81; Resp 18; Pulse Ox 100% ; me1 18:26 Pain Scale: Adult nh1 ED Course: 18:26 Patient arrived in ED. me1 18:28 Triage completed. me1 18:28 Arm band placed on Patient placed in an exam room. me1 18:29 Kenny Zhao PA is PHCP. cp 18:29 Kenny Nunez MD is Attending Physician. cp 18:30 Patient has correct armband on for positive identification. Bed in low position. Call nh1 light in reach. Side rails up X2. Provided Education on: POC. Verbalized understanding. Client placed on continuous cardiac and pulse oximetry monitoring. NIBP monitoring applied. Pulse ox on. NIBP on. 18:30 No provider procedures requiring assistance completed. me1 18:49 Manju Schulte, RN is Primary Nurse. me1 18:57 XRAY Chest (1 view) In Process Unspecified. EDMS 20:15 IV discontinued, intact, bleeding controlled, No redness/swelling at site. Pressure br2 dressing applied. Administered Medications: No medications were administered Medication: 18:30 VIS not applicable for this client. me1 Outcome: 19:52 Discharge ordered by . 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 br2 Signatures: Dispatcher [employer] EDMS Kenny Zhao PA PA cp Eddleman, Michelle, RN RN me1 Franci Ramirez RN RN br2
--- NOTE | 2024-12-25 19:53 | EDPHYS ---
Physician Documentation [facility] Name: Meredith King Age: 79 yrs Sex: Female : 1945 Arrival Date: 12/25/2024 Time: 18:11 Bed 17 Private MD: ED Physician Kenny Nunez HPI: 12/25 18:35 This 79 yrs old Black Female presents to ER via EMS with complaints of Pain. cp 18:35 Patient presents to ED by EMS with c/o pain all over. cp Historical: - Allergies: 18:28 No Known Drug Allergies; me1 - PMHx: 18:28 Arthritis; Dementia; Chronic pain; Diabetes - NIDDM; Hypertension; me1 - Immunization history:: Adult Immunizations unknown. - Infectious Disease History:: Denies. - Social history:: Smoking status: unknown. ROS: 18:40 Constitutional: Negative for chills, fever, poor PO intake, cp 18:40 Eyes: Negative for injury, pain, redness, and discharge, cp 18:40 ENT: Negative for ear pain, sore throat, difficulty swallowing, difficulty handling secretions, 18:40 Cardiovascular: Negative for chest pain, palpitations, 18:40 Respiratory: Negative for cough, shortness of breath, wheezing, 18:40 Abdomen/GI: Negative for abdominal pain, vomiting, diarrhea, constipation, 18:40 Neuro: Negative for altered mental status, headache, weakness, 18:40 All other systems are negative, Exam: 18:45 Constitutional: The patient appears in no acute distress, alert, awake, cp non-diaphoretic, non-toxic, well developed, well nourished, 18:45 Head/Face: Normocephalic, atraumatic. cp 18:45 Eyes: Periorbital structures: appear normal, Conjunctiva: normal, no exudate, no injection, Sclera: no appreciated abnormality, Lids and lashes: appear normal, bilaterally, 18:45 ENT: External ear(s): are unremarkable, Nose: is normal, Mouth: Lips: moist, Oral mucosa: moist, Posterior pharynx: Airway: no evidence of obstruction, patent, 18:45 Neck: ROM/movement: limited range of motion, is not appreciated, Meningeal signs: are not present, nuchal rigidity, is not appreciated, 18:45 Chest/axilla: Inspection: normal, 18:45 Cardiovascular: Rate: normal, Edema: is not appreciated, JVD: is not appreciated, 18:45 Respiratory: the patient does not display signs of respiratory distress, Respirations: normal, no use of accessory muscles, no retractions, labored breathing, is not present, Breath sounds: are clear throughout, no decreased breath sounds, no stridor, no wheezing, 18:45 Abdomen/GI: Inspection: abdomen appears normal, Palpation: abdomen is soft and non-tender, in all quadrants, 18:45 Back: CVA tenderness, is absent, 18:45 Neuro: Orientation: no acute changes, per EMS, Mentation: no acute changes, per EMS, Motor: moves all fours, no focal deficits, Sensation: is normal, Vital Signs: 18:26 BP 192 / 61; Pulse 87; Resp 17; Temp 98; Pulse Ox 97% ; Weight 74.39 kg; Pain 6/10; me1 19:00 BP 194 / 76; Pulse 81; Resp 18; Pulse Ox 100% ; me1 18:26 Pain Scale: Adult me1 MDM: 18:38 Medical Screening Exam initiated june 18:45 Differential diagnosis: viral Infection, bacterial infection, pneumonia UTI, sepsis. 19:51 Data reviewed: vital signs, nurses notes, radiologic studies, plain films. 19:51 Care significantly affected by the following chronic conditions: Diabetes, cp Hypertension, dementia. Counseling: I had a detailed discussion with the patient and/or guardian regarding the historical points, exam findings, and any diagnostic results supporting the discharge/admit diagnosis, radiology results, to return to the emergency department if symptoms worsen or persist or if there are any questions or concerns that arise at home. Refusal of service: The patient/guardian displays adequate decision making capability and despite a detailed discussion of alternatives, benefits, risks, and consequences refuses: all lab tests. 12/25 18: Order name: XRAY Chest (1 view); Complete Time: 19:05 12/25 17: Order name: Cardiac monitoring 12/25 17:31 Order name: EKG - Nurse/Tech 12/25 18:31 Order name: IV Saline Lock 12/25 18: Order name: Labs collected and sent 12/25 17: Order name: O2 Per Protocol 12/25 17: Order name: O2 Sat Monitoring cp Administered Medications: No medications were administered Disposition Summary: 12/25/24 19:52 Discharge Ordered Notes: Location: Home cp Problem: chronic cp Symptoms: are unchanged cp Condition: Stable cp Diagnosis - Chronic pain, not elsewhere classified cp Followup: cp - With: Emergency Department - When: As needed - Reason: Worsening of condition Discharge Instructions: - Discharge Summary Sheet cp - Chronic Pain, Adult cp Forms: - Medication Reconciliation Form cp - Antibiotic Education cp - Prescription Opioid Use cp - Patient Portal Instructions cp - Leadership Thank You Letter cp Addendum: 12/26/2024 22:07 Co-signature as Attending Physician, Kenny Nunez MD I agree with the assessment and c vang plan of care. Signatures: Dispatcher [employer] EDKenny Solorzano MD MD cha Page, Corey, PA PA Manju Zimmerman, RN RN me1 Corrections: (The following items were deleted from the chart) 12/25 18:31 18:31 BASIC METABOLIC PANEL+C.LAB.BRZ ordered. EDMS EDMS 18:31 18:31 CBC+H.LAB.BRZ ordered. EDMS EDMS 18:31 18:31 HEPATIC FUNCTION+C.LAB.BRZ ordered. EDMS EDMS 18:31 18:31 MAGNESIUM+C.LAB.BRZ ordered. EDMS EDMS 18:31 18:31 PROBNP+C.LAB.BRZ ordered. EDMS EDMS 18:31 18:31 PROTIME (+INR)+COAG.LAB.BRZ ordered. EDMS EDMS 18:31 18:31 Troponin High Sensitivity+C.LAB.BRZ ordered. EDMS EDMS 18:31 18:31 Urinalysis W/Microscopic+U.LAB.BRZ ordered. EDMS EDMS 18:31 18:31 Chest Single View+RAD.RAD.BRZ ordered. EDMS EDMS 18:32 18:32 SARS-COV-2 Antigen Rapid+I.LAB.BRZ ordered. EDMS EDMS 18:32 18:32 Influenza Screen (A \T\ B)+BA.LAB.BRZ ordered. EDMS EDMS
[2024-12-25 20:27] VITALS: TEMP 98
[2024-12-25 20:28] VITALS: BP 194/76; O2SAT 100
== END 2024-12-25 20:23 | disposition home or self-care (01) ==
LOC: ER 18:11
DX: G89.29 Other chronic pain (principal)
CPT/HCPCS: 71045; 99283

== ENCOUNTER 2025-03-21 07:53 | Observation (INO) | payer OTHER ==
--- OUTSIDE RECORDS SUMMARY | 2025-03-21 07:57 | XMS REPORT | Continuity of Care Document ---
Author Name Unknown Address [address] [facility] [address] [place] [address] Organization [facility] [place] Address [address] [facility] [facility] [address] [place] [address] Care Team Providers Care Patient Access Director Name Role Phone Marco Kings RIGGINS Primary Care Physician Asa Duncan MD Attending Clinician Doctor Unassigned, Maynard Attending Clinician U navailable ASA DUNCAN Attending Clinician Unavail able KE CABRERA Attending Clinician Unavailable KE CABRERA Attending Clinician Unavailable Payers Payer Name Policy Type Policy Number Effective Date Expirati on Date Source [employer] MEDICARE ADVANTAGE Medicare [id number] 2023 00:00:00 Problems Condition Name Condition Details Condition Category Status Onset Date Resolution Date Last Treatment Date Treating Clinician Comments Source RA (rheumatoi d arthritis) RA (rheumatoi d arthritis) Disease Active 05-08 00:00: 00 [facility] Diallo Memory loss Memory loss Disease Active 05-08 00:00: 00 Davonte Diallo Morbid obesity Morbid obesity Disease Active 05-08 00:00: 00 Davonte Diallo CHAO (generaliz ed anxiety disorder) CHAO (generaliz ed anxiety disorder) Disease Active 05-08 00:00: 00 Davonte Dilalo MCI (mild cognitive impairment ) MCI (mild [...] syndrome X Disease Active 02-16 00:00: 00 [facility] Essential hypertensi on, benign Essential hypertensi on, benign Disease Active 02-16 00:00: 00 [facility] Type II or unspecifie d type diabetes mellitus with unspecifie d complicati on, uncontroll ed Type II or unspecifie d type diabetes mellitus with unspecifie d complicati on, uncontroll ed Disease Active 02-16 00:00: 00 [facility] Depression Depression Disease Active 02-16 00:00: 00 [facility] Allergies, Adverse Reactions, Alerts Allergy Name Allergy Type Status Severity Reaction(s) Onset Date Inactive Date Treating Clinician Comments Source ALLERGIE S NOT ON FILE SYSTEMIC Active [facility] NO KNOWN ALLERGIE S SYSTEMIC Active [facility] NO KNOWN ALLERGIE S SYSTEMIC Active MHEOUT NO KNOWN ALLERGIE S SYSTEMIC Active [facility]HE[facility] NO KNOWN ALLERGIE S Drug Class Active [facility] NO KNOWN ALLERGIE S SYSTEMIC Active [facility]HEOUT NO KNOWN ALLERGIE S SYSTEMIC Active [facility] NO KNOWN ALLERGIE S SYSTEMIC Active [facility] NO KNOWN ALLERGIE S SYSTEMIC Active MHEOUT NO KNOWN ALLERGIE S SYSTEMIC Active [facility] Social History Social Habit Start Date Stop Date Quantity Comments Source Gender identity 2024-02-09 06:01:10 Identifies as female gender (finding) [facility]ION [facility] Tobacco use and exposure 2024-05-08 00:00:00 2024-05-08 00:00:00 Smokeless tobacco non-user [facility] Alcoholic beverage intake 2018-04-24 00:00:00 2018-04-24 00:00:00 0 /d [facility] History of Social function 2018-04-24 00:00:00 2018-04-24 00:00:00 [facility] Sex assigned at 1945 00:00:00 1945 00:00:00 [facility] Smoking Status Start Date Stop Date Source Never smoked tobacco [facility] Diallo Medications Ordered Medication Name Filled Medication Name Start Date Stop Date Current Medication? Ordering Clinician Indication Dosage Frequency Signature (SIG) Comments Components Source galantamine (Razadyne) 4 MG tablet galantamine (Razadyne) 4 MG tablet 02-12 00:00: 00 Yes 4mg Q.5D TAKE 1 TABLET BY MOUTH IN THE MORNING AND IN THE EVENING Davonte Diallo amLODIPine (Norvasc) 5 MG tablet amLODIPine (Norvasc) 5 MG tablet 05-08 14:34: 02 Yes 5mg Q.5D Take 5 mg by mouth in the morning and 5 mg in the evening. [facility]onet Diallo atorvastati n (Lipitor) 40 MG tablet atorvastati n (Lipitor) 40 MG tablet 05-08 14:34: 02 Yes 40mg QD Take 40 mg by mouth 1 time each day. Davonte Diallo carvedilol (Coreg) 12.5 MG tablet carvedilol (Coreg) 12.5 MG tablet 05-08 14:34: 02 Yes 12.5mg Take 12.5 mg by mouth in the morning and 12.5 mg in the evening. Take with meals. Davonte Diallo folic acid (Folvite) 1 MG tablet folic acid (Folvite) 1 MG tablet 05-08 14:34: 02 Yes 1000ug QD Take 1,000 mcg by mouth 1 time each day. [facility] Diallo meloxicam (Mobic) 15 MG tablet meloxicam (Mobic) 15 MG tablet 05-08 14:34: 02 Yes 15mg QD Take 15 mg by mouth 1 time each day. [facility] Diallo metFORMIN XR (Glucophage -XR) 500 MG 24 [...] mouth 1 time each day. [facility]onte Diallo memantine (Namenda) 10 MG tablet memantine (Namenda) 10 MG tablet 05-08 00:00: 00 05-08 23:59 :00 No 10mg Q.5D Take 1 tablet by mouth in the morning and 1 tablet in the evening. Davonte Diallo galantamine (Razadyne) 4 MG tablet galantamine (Razadyne) 4 MG tablet 05-08 00:00: 00 02-12 00:00 :00 No 4mg Q.5D Take 1 tablet by mouth in the morning and 1 tablet in the evening. [facility] DULoxetine (Cymbalta) [address] capsule DULoxetine (Cymbalta) [address] capsule 4-15 00:00: 00 Yes 1{capsu le} QD Take 1 capsule by mouth 1 time each day. [facility] galantamine (Razadyne) 4 MG tablet galantamine (Razadyne) 4 MG tablet 3-22 00:00: 00 05-08 00:00 :00 No 4mg Q.5D Take 4 mg by mouth in the morning and 4 mg in the evening. [facility] memantine (Namenda) 10 MG tablet memantine (Namenda) 10 MG tablet 1-12 00:00: 00 05-08 00:00 :00 No 10mg Q.5D Take 10 mg by mouth in the morning and 10 mg in the evening. [facility]onte Diallo aspirin EC 81 MG EC tablet aspirin EC 81 MG EC tablet 1-01 00:00: 00 Yes 81mg QD Take 81 mg by mouth 1 time each day. Davonte Diallo DICLOFENAC 75 mg EC tablet 2-04 00:00: 00 Yes [id number] TAKE 1 TABLET BY MOUTH TWICE A DAY WITH FOOD [facility] valsartan-h ydrochlorot hiazide (DIOVAN-HCT ) 320-12.5 mg per tablet 04-24 08:51: 25 Yes 1{tbl} Take 1 Tab by mouth daily. [facility] nebivolol (BYSTOLIC) 10 mg tablet 04-24 08:51: 25 Yes 10mg Take 10 mg by mouth daily. [facility] pravastatin (PRAVACHOL) 40 mg tablet 04-24 08:51: 25 Yes 40mg Take 40 mg by mouth at bedtime. [facility] amLODIPine (NORVASC) 5 mg tablet 04-24 08:51: 25 Yes 5mg Take 5 mg by mouth daily. [facility] traMADOL (ULTRAM) 50 mg tablet 2015-11 00:00: 00 Yes 50mg Take 1 tablet by mouth every 6 (six) hours as needed for Pain (scale 4-6). [facility] methylPREDN ISolone (MEDROL, RAJESH,) 4 mg tablets 07-05 00:00: 00 Yes 84mg Take 21 tablets by mouth SEE-INSTRU CTIONS. follow package directions [facility] SUMAtriptan (IMITREX) 50 mg tablet 06-22 00:00: 00 Yes TK 1 T PO AT ONSET OF NUNEZ. MAY REPEAT IN 2 HOURS IF NO RELIEF. DO NOT EXCEED 2 TS PER 24 HOURS. [facility] LORazepam (ATIVAN) 0.5 mg tablet 06-21 00:00: 00 Yes TAKE BY MOUTH 1-2 TABLETS 2 TIMES A DAY NEEDED FOR ANXIETY OR SLEEP [facility] diclofenac (VOLTAREN) 75 mg EC tablet 06-18 00:00: 00 Yes TAKE 1 TABLET BY MOUTH TWICE A DAY [facility] cyclobenzap rine (FLEXERIL) 10 mg tablet 06-18 00:00: 00 Yes TAKE 1 TABLET TWICE A DAY NEEDED FOR SPASMS [facility] glyBURIDE (DIABETA) 5 mg tablet 06-15 00:00: 00 Yes TAKE 1 TABLET BY MOUTH EVERY MORNING [facility] SERTraline (ZOLOFT) 50 mg tablet 06-11 00:00: 00 Yes 50mg Take 50 mg by mouth daily. [facility] furosemide (LASIX) 20 mg tablet 06-11 00:00: 00 Yes TAKE 1 TABLET BY MOUTH EVERY MORNING [facility] proMETHazin e (PHENERGAN) 25 mg tablet 05-27 00:00: 00 Yes TAKE 1 TABLET BY MOUTH TWICE A DAY [facility] KCL (KLOR-CON M10) 10 mEq tablet 05-22 00:00: 00 Yes TAKE 1 TABLET BY MOUTH ONCE A DAY [facility] PROAIR HFA 90 mcg/actuati on inhaler 05-22 00:00: 00 Yes INHALE 2 PUFFS BY MOUTH NEEDED [facility] tramadol-ac etaminophen (ULTRACET) 37.5-325 mg per tablet 05-14 00:00: 00 Yes TAKE BY MOUTH 1-2 TABLETS EVERY 4 TO 6 HOURS NOT TO EXCEED 8 PER DAY [facility] metformin ER (GLUCOPHAGE -XR) 500 mg 24 hr tablet 02-16 00:00: 00 Yes 1000mg Take 2 Tabs by mouth daily with breakfast. [facility] Vital Signs Vital Name Observation Time Observation Value Comments S ebonimely Systolic blood pressure 2024-12-23 13:50:00 178 mm[Hg] [facility] Diastolic blood pressure 2024-12-23 13:50:00 112 mm[Hg] [facility] Heart rate 2024-12-23 13:50:00 86 /min [facility] Body temperature 2024-12-23 13:50:00 36.22 [facility] Respiratory rate 2024-12-23 13:50:00 16 /min [facility] Body height 2024-12-23 13:50:00 149.9 cm [facility] Body weight 2024-12-23 13:50:00 69.854 kg [facility] BMI 2024-12-23 13:50:00 31.10 kg/m2 [facility] Systolic blood pressure 2024-12-23 13:50:00 178 mm[Hg] [facility] Diastolic blood pressure 2024-12-23 13:50:00 112 mm[Hg] [facility] Epic Heart rate 2024-12-23 13:50:00 86 /min [facility] Body temperature 2024-12-23 13:50:00 36.22 [facility] Respiratory rate 2024-12-23 13:50:00 16 /min [facility] Body height 2024-12-23 13:50:00 149.9 cm [facility] Body weight 2024-12-23 13:50:00 69.854 kg [facility] BMI 2024-12-23 13:50:00 31.10 kg/m2 [facility] Systolic blood pressure 2024-07-29 15:42:00 160 mm[Hg] [facility] Diastolic blood pressure 2024-07-29 15:42:00 94 mm[Hg] [facility] Heart rate 2024-07-29 15:42:00 80 /min [facility] Body temperature 2024-07-29 15:42:00 36.5 [facility] Respiratory rate 2024-07-29 15:42:00 16 /min [facility] Body height 2024-07-29 15:42:00 149.9 cm [facility] Body weight 2024-07-29 15:42:00 75.751 kg [facility] BMI 2024-07-29 15:42:00 33.73 kg/m2 [facility] Systolic blood pressure 2024-07-29 15:42:00 160 mm[Hg] [facility] Diastolic blood pressure 2024-07-29 15:42:00 94 mm[Hg] [facility] Epic Heart rate 2024-07-29 15:42:00 80 /min [facility] Body temperature 2024-07-29 15:42:00 36.5 [facility] Epic Respiratory rate 2024-07-29 15:42:00 16 /min [facility] Body height 2024-07-29 15:42:00 149.9 cm [facility] Body weight 2024-07-29 15:42:00 75.751 kg [facility] BMI 2024-07-29 15:42:00 33.73 kg/m2 [facility] Systolic blood pressure 2024-05-08 14:24:00 112 mm[Hg] [facility] Diastolic blood pressure 2024-05-08 14:24:00 67 mm[Hg] [facility] Heart rate 2024-05-08 14:24:00 66 /min [facility] Body temperature 2024-05-08 14:24:00 36.33 [facility] Respiratory rate 2024-05-08 14:24:00 16 /min [facility] Body height 2024-05-08 14:24:00 153.7 cm [facility] Body weight 2024-05-08 14:24:00 80.922 kg [facility] BMI 2024-05-08 14:24:00 34.27 kg/m2 [facility] Oxygen saturation in Arterial blood by Pulse oximetry 2024-05-08 14:24:00 99 /min [facility] Systolic blood pressure 2024-05-08 14:24:00 112 mm[Hg] [facility] Diastolic blood pressure 2024-05-08 14:24:00 67 mm[Hg] [facility] Heart rate 2024-05-08 14:24:00 66 /min [facility] Body temperature 2024-05-08 14:24:00 36.33 [facility][1] Epic Respiratory rate 2024-05-08 14:24:00 16 /min [facility] Body height 2024-05-08 14:24:00 153.7 cm [facility] Body weight 2024-05-08 14:24:00 80.922 kg [facility] BMI 2024-05-08 14:24:00 34.27 kg/m2 [facility] Oxygen saturation in Arterial blood by Pulse oximetry 2024-05-08 14:24:00 99 /min [facility] Procedures Procedure Date / Time Performed Performing Clinicia n Source REFERRAL- REQUEST/RESPONSE 2024-05-12 14:35:39 Doctor Unassigned, Maynard [facility] Encounters Start Date/Time End Date/Time Encounter Type Admission Type Attending [facility] Facility Care Department Encounter ID Source 2025-02-12 00:00:00 2025-02-12 11:42:32 RefAsa Ingram [id number] [facility] 2024-05-12 00:00:00 2025-01-02 07:27:10 Orders Only Doctor Unassigned, Maynard Doctor Unassigned, Maynard [facility] (NISHA) [id number] [facility] 2024-12-23 13:21:43 2024-12-23 14:15:52 Outpatient SERAFINKIMBERLY CANELAIR MHEstelitaOUT [facility] [id number] [facility] 2024-12-23 13:45:00 2024-12-23 14:00:00 Office Visit Asa Duncan Sage [id number] [facility] 2024-07-29 15:31:10 2024-07-29 16:31:08 Outpatient SERAFINASA CANELA MHEstelitaOUT [facility] [id number] [facility] 2024-07-29 15:30:00 2024-07-29 16:31:08 Office Visit SerafinAsa canela Sage [id number] [facility] 2024-05-13 10:00:00 2024-05-13 10:00:00 Outpatient KE JEAN-B[facility] [id number] [facility] 2024-05-08 14:13:14 2024-05-08 15:00:32 Outpatient ASA DUNCAN [facility] [id number] MHEOUT 2024-05-08 14:00:00 2024-05-08 14:15:00 Office Visit Asa Duncan [id number] [facility] Epic Results Test Description Test Time Test Comments Results Resul t Comments Source REFERRAL- REQUEST/RESPONSE 2024-05-12 14:35:39 Ordered by an unspecified provider. [facility] Notes Date/Time Note Provider Source [facility] 11:42:32* [facility]13[facility] 11:42:32Upcoming Encounters Health Maintenance Due Date Last Done Comments Bone Density Scan 1945 Medicare Annual Wellness (AWV) 1945 DTaP/Tdap/Td Vaccines (1 - Tdap) 1962 Pneumococcal Vaccine: 50+ Ye ars (1 of 2 - PCV) 1962 Zoster Vaccines (1 of 2) 1993 Respiratory Syncytial Virus (RSV) or >=60 (1 - 1-dose 75+ series) 2018 Influenza Vaccine (#1) 2024 Lipid Panel 02/13/2027 02/13/2022 HIB Vaccines Aged Out No longer eligi ble based on patient's age to complete this topic HPV Vaccines Aged Out No longer eligi ble based on patient's age to complete this topic Hepatitis A Vaccines Aged Out No long er eligible based on patient's age to complete this topic Hepatitis B Vaccines Aged Out No long er eligible based on patient's age to complete this topic IPV Vaccines Aged Out No longer eligi ble based on patient's age to complete this topic Meningococcal Vaccine Aged Out No lizett deanna eligible based on patient's age to complete this topic Rotavirus Vaccines Aged Out No longer eligible based on patient's age to complete this topic [id number] 14:14:10* [facility]p1992-31-78 14:14:10* Asa Duncan MD - 12/23/2024 1:45 PM [employer] History of Present Illness HPI Memory still problematic, repeats herself frequently. Doesn't tolerate more than 4mg Razadyne bid. Has lost 12 pounds. No new problems otherwise Allergies as of 12/23/2024 (No Known Allergies) has a current medication list which includes the following prescription(s): amlodipine, aspirin ec, atorvastatin, carvedilol, duloxetine, folic acid, galantamine, hydralazine, losartan, meloxicam, memantine, metformin xr, methotrexate, multi-vitamin, omeprazole, and oxybutynin xl. Vitals:12/23/24 1350 BP: (!) 178/112 Pulse: 86 Resp: 16 Temp: 36.2 ?C (97.2 ?F) Neurological Exam Mental Status Awake and alert. Speech is normal. 4/6 pictures. Cranial NervesCN II: Visual acuity is normal. CN III, IV, : Extraocular movements intact bilaterally. Pupils equal round and reactive to light bilaterally. CN VII: Full and symmetric facial movement. CN XII: Tongue midline without atrophy or fasciculations. MotorStrength is 5/5 throughout all four extremities. SensoryLight touch is normal in upper and lower extremities. Temperature is normal in upper and lower extremities. Vibration is normal in upper and lower extremities. ReflexesDeep tendon reflexes: Symmetric. Gait Ambulates with a cane. Results for orders placed or performed in visit on 05/08/24 Complete Blood Count w/Diff and Platelet Collection Time: 05/15/24 11:25 AM Result Value Ref Range WBC X 10x3 6.9 3.8 - 10.8 Thousand/uL RBC X 10x6 3.28 (L) 3.80 - 5.10 Million/uL Hgb 10.8 (L) 11.7 - 15.5 g/dL Hct 32.2 (L) 35.0 - 45.0 % MCV 98.2 80.0 - 100.0 fL MCH 32.9 27.0 - 33.0 pg MCHC 33.5 32.0 - 36.0 g/dL RDW 13.2 11.0 - 15.0 % Platelet 192 140 - 400 Thousand/uL MPV 11.3 7.5 - 12.5 fL Segs # 4,478 1,500 - 7,800 cells/uL Lymphocytes # 1,780 850 - 3,900 cells/uL Monocytes # 400 200 - 950 cells/uL Eosinophils # 214 15 - 500 cells/uL Basophils # 28 0 - 200 cells/uL Segs % 64.9 % Lymphocytes 25.8 % Monocytes 5.8 % Eos % 3.1 % Basophils 0.4 % Comprehensive Metabolic Panel Collection Time: 05/15/24 11:25 AM Result Value Ref Range Glucose Lvl 100 (H) 65 - 99 mg/dL BUN 23 7 - 25 mg/dL Creatinine Lvl 0.98 (H) 0.60 - 0.95 mg/dL eGFR 58 (L) > OR = 60 mL/min/1.73m2 B/C Ratio 23 (H) 6 - 22 (calc) Sodium Lvl 142 135 - 146 mmol/L Potassium Lvl 4.6 3.5 - 5.3 mmol/L Chloride Lvl 106 98 - 110 mmol/L CO2 Lvl 26 20 - 32 mmol/L Calcium Lvl 9.7 8.6 - 10.4 mg/dL Total Protein 7.4 6.1 - 8.1 g/dL Albumin Lvl 4.4 3.6 - 5.1 g/dL Globulin 3.0 1.9 - 3.7 g/dL (calc) A/G Ratio 1.5 1.0 - 2.5 (calc) Bili Total 0.8 0.2 - 1.2 mg/dL Alk Phos 62 37 - 153 U/L AST 28 10 - 35 U/L ALANINE AMINOTRANSFERASE 26 6 - 29 U/L No MRI head results found for the past 12 months Assessment & PlanDiagnoses and all orders for this visit: Moderate late onset Alzheimer's dementia with other behavioral disturbance (HCC) Continue present medications [employer] [facility]Vtjqhth1955-[facility] 14:14:10 [facility] CenterCymuure4507-52-23 14:14:10 Diagnosis Moderate late onset Alzheime r's dementia with other behavioral disturbance (HCC) - [facility] CenterLytyafv6278-42-64 14:14:10 [facility] CenterTxbfses6861-88-52 14:14:09* [facility] CenterXnaoqyu2389-66-65 14:14:09* Asa Duncan MD - 12/23/2024 1:45 PM [employer] History of Present Illness HPI Memory still problematic, repeats herself frequently. Doesn't tolerate more than 4mg Razadyne bid. Has lost 12 pounds. No new problems otherwise Allergies as of 12/23/2024 (No Known Allergies) has a current medication list which includes the following prescription(s): amlodipine, aspirin ec, atorvastatin, carvedilol, duloxetine, folic acid, galantamine, hydralazine, losartan, meloxicam, memantine, metformin xr, methotrexate, multi-vitamin, omeprazole, and oxybutynin xl. Vitals:12/23/24 1350 BP: (!) 178/112 Pulse: 86 Resp: 16 Temp: 36.2 ?C (97.2 ?F) Neurological Exam Mental Status Awake and alert. Speech is normal. 4/6 pictures. Cranial NervesCN II: Visual acuity is normal. CN III, IV, : Extraocular movements intact bilaterally. Pupils equal round and reactive to light bilaterally. CN VII: Full and symmetric facial movement. CN XII: Tongue midline without atrophy or fasciculations. MotorStrength is 5/5 throughout all four extremities. SensoryLight touch is normal in upper and lower extremities. Temperature is normal in upper and lower extremities. Vibration is normal in upper and lower extremities. ReflexesDeep tendon reflexes: Symmetric. Gait Ambulates with a cane. Results for orders placed or performed in visit on 05/08/24 Complete Blood Count w/Diff and Platelet Collection Time: 05/15/24 11:25 AM Result Value Ref Range WBC X 10x3 6.9 3.8 - 10.8 Thousand/uL RBC X 10x6 3.28 (L) 3.80 - 5.10 Million/uL Hgb 10.8 (L) 11.7 - 15.5 g/dL Hct 32.2 (L) 35.0 - 45.0 % MCV 98.2 80.0 - 100.0 fL MCH 32.9 27.0 - 33.0 pg MCHC 33.5 32.0 - 36.0 g/dL RDW 13.2 11.0 - 15.0 % Platelet 192 140 - 400 Thousand/uL MPV 11.3 7.5 - 12.5 fL Segs # 4,478 1,500 - 7,800 cells/uL Lymphocytes # 1,780 850 - 3,900 cells/uL Monocytes # 400 200 - 950 cells/uL Eosinophils # 214 15 - 500 cells/uL Basophils # 28 0 - 200 cells/uL Segs % 64.9 % Lymphocytes 25.8 % Monocytes 5.8 % Eos % 3.1 % Basophils 0.4 % Comprehensive Metabolic Panel Collection Time: 05/15/24 11:25 AM Result Value Ref Range Glucose Lvl 100 (H) 65 - 99 mg/dL BUN 23 7 - 25 mg/dL Creatinine Lvl 0.98 (H) 0.60 - 0.95 mg/dL eGFR 58 (L) > OR = 60 mL/min/1.73m2 B/C Ratio 23 (H) 6 - 22 (calc) Sodium Lvl 142 135 - 146 mmol/L Potassium Lvl 4.6 3.5 - 5.3 mmol/L Chloride Lvl 106 98 - 110 mmol/L CO2 Lvl 26 20 - 32 mmol/L Calcium Lvl 9.7 8.6 - 10.4 mg/dL Total Protein 7.4 6.1 - 8.1 g/dL Albumin Lvl 4.4 3.6 - 5.1 g/dL Globulin 3.0 1.9 - 3.7 g/dL (calc) A/G Ratio 1.5 1.0 - 2.5 (calc) Bili Total 0.8 0.2 - 1.2 mg/dL Alk Phos 62 37 - 153 U/L AST 28 10 - 35 U/L ALANINE AMINOTRANSFERASE 26 6 - 29 U/L No MRI head results found for the past 12 months Assessment & PlanDiagnoses and all orders for this visit: Moderate late onset Alzheimer's dementia with other behavioral disturbance (HCC) Continue present medications [employer] [facility] [id number] 14:14:09 [facility] CenterKefrpps6038-25-43 14:14:09 Diagnosis Moderate late onset Alzheime r's dementia with other behavioral disturbance (HCC) - Primary [facility] CenterUeoevzi2660-01-87 14:14:09 [facility] CenterQmfopqs2643-53-29 17:36:43* [facility] CenterPqghkka9757-96-54 17:36:43Upcoming Encounters Health Maintenance Due Date Last Done Comments Medicare Annual Wellness (AWV) 1945 Pneumococcal Vaccine: 65+ Ye ars (1 of 2 - PCV) 1949 Diabetes: Foot Exam 1953 Diabetes: Retinopathy Screening 1955 DTaP/Tdap/Td Vaccines (1 - Tdap) 1962 Diabetes: Urine Protein Screening 1962 Zoster Vaccines (1 of 2) 1993 Respiratory Syncytial Virus (RSV) or >=60 (1 - 1-dose 60+ series) 2003 Diabetes: Hemoglobin A1C 05/16/2022 02/13/2022 Lipid Panel 02/13/2023 02/13/2022 Influenza Vaccine (#1) 2024 HIB Vaccines Aged Out No longer eligi ble based on patient's age to complete this topic HPV Vaccines Aged Out No longer eligi ble based on patient's age to complete this topic Hepatitis A Vaccines Aged Out No long er eligible based on patient's age to complete this topic Hepatitis B Vaccines Aged Out No long er eligible based on patient's age to complete this topic IPV Vaccines Aged Out No longer eligi ble based on patient's age to complete this topic Meningococcal Vaccine Aged Out No lizett deanna eligible based on patient's age to complete this topic Rotavirus Vaccines Aged Out No longer eligible based on patient's age to complete this topic [facility] CenterSkpfgix0501-34-52 17:36:43 Diagnosis Moderate late onset Alzheime r's dementia with other behavioral disturbance (HCC) - [facility] CenterDefzhpv8501-91-77 17:36:43 [place] [id number] 14:57:05* Asa Duncan MD - 05/08/2024 2:00 PM CDT Memory Loss Patient reports onset of memory loss was more than 1 year ago. Onset quality is gradual. Symptoms associated with memory loss include changes in short-term memory and repetitive questions. Patient lives with caregiver. Patient lives in a/an house. Pharmacy still filling 8 mg Razadyne Allergies as of 05/08/2024 (No Known Allergies) has a current medication list which includes the following prescription(s): amlodipine, aspirin ec, atorvastatin, carvedilol, duloxetine, folic acid, galantamine, hydralazine, losartan, meloxicam, memantine, metformin xr, methotrexate, multi-vitamin, omeprazole, and oxybutynin xl. Vitals:05/08/24 1424 BP: 112/67 Pulse: 66 Resp: 16 Temp: 36.3 ?C (97.4 ?F) SpO2: 99% Neurological Exam Mental Status Awake and alert. Speech is normal. 4/6 picrures. Cranial NervesCN II: Visual acuity is normal. CN III, IV, : Extraocular movements intact bilaterally. Pupils equal round and reactive to light bilaterally. CN VII: Full and symmetric facial movement. CN XII: Tongue midline without atrophy or fasciculations. MotorStrength is 5/5 throughout all four extremities. SensoryLight touch is normal in upper and lower extremities. Temperature is normal in upper and lower extremities. Vibration is normal in upper and lower extremities. ReflexesDeep tendon reflexes: Symmetric. GaitCasual gait is normal including stance, stride, and arm swing. Results for orders placed or performed in visit on 11/02/22 Vitamin B1 Level Result Value Ref Range Vitamin B1 113 78 - 185 mmol/L Vitamin B12 Level Result Value Ref Range Vitamin B12 Lvl 862 200 - 1100 pg/mL No MRI head results found for the past 12 months Assessment & PlanModerate late onset Alzheimer's dementia with other behavioral disturbance (HCC) Slowly worsening, continue present medications. [id number]57[facility]05 [id number] 14:57:05 Diagnosis Moderate late onset Alzheime r's dementia with other behavioral disturbance (HCC) - Primary [id number] 14:57:05 [id number] 14:57:05* [facility]
[2025-03-21] MEDS ORDERED: METRONIDAZOLE 500mg IVPB 500 MG/100 ML BAG IV ONE (08:45)
[2025-03-21] MEDS ORDERED: CIPROFLOXACIN 400mg IV 400 MG/200 ML BAG IV ONE (08:45)
[2025-03-21] MEDS ORDERED: ONDANSETRON 4 MG/2 ML VIAL ONE (08:45)
[2025-03-21] MEDS ORDERED: FAMOTIDINE 20 MG/2 ML VIAL IV ONE (08:45)
[2025-03-21] MEDS ORDERED: NA CHLORIDE 0.9% 1,000 ML ONE (08:45)
[2025-03-21 09:03] LABS: Absolute Eosinophils 0.2 K/uL (0-0.5); Absolute Lymphocytes (CBC) 2.2 K/uL (0.7-4.9); Absolute Monocytes 0.7 K/uL (0.1-1.3); Absolute Neutrophil 5.3 K/uL (1.8-8.0); Basophils % 0.5 % (0-1.3); Eosinophils % 1.9 % (0-4.4); Hematocrit 28.7 % (36.0-45.0); Hemoglobin 9.9 g/dL (12.0-15.0); Lymphocytes % 26.2 % (15.3-44.8); MCH 31.9 pg (27.0-35.0); MCHC 34.4 g/dL (32.0-36.0); MCV 92.9 fL (80-100); MPV 8.3 fL (7.6-11.3); Monocytes % 8.4 % (3.3-12.3); Platelets 203 thou/uL (152-406); RBC Red Blood Cell Count 3.09 M/uL (3.86-4.86); Red Cell Distribution Width 14.6 % (12.1-15.2)
[2025-03-21 09:04] LABS: Specific Gravity 1.017 (1.005-1.030); Urine Bilirubin NEGATIVE (Negative); Urine Blood Negative (Negative); Urine Clarity Clear (Clear); Urine Color Light-Yellow (Yellow); Urine Glucose NEGATIVE (Negative); Urine Ketones NEGATIVE (Negative); Urine Microscopic Reflex YN NO UMIC; Urine Nitrite NEGATIVE (Negative); Urine Protein NEGATIVE (Negative); Urine Urobilinogen Normal (Normal)
[2025-03-21 09:15] LABS: Albumin 2.9 g/dL (3.4-5.0); Albumin/Globulin Ratio 0.7 (1.1-1.8); Anion Gap 9.2 mEq/L (5.0-15.0); Bilirubin Total 0.3 mg/dL (0.2-1.0); Globulin 3.9 g/dL (2.3-3.5); Potassium 4.2 mEq/L (3.5-5.1); Protein, Total 6.8 g/dL (6.4-8.2)
--- NOTE | 2025-03-21 09:48 | ER ---
Nurse's Notes [facility] Name: Meredith King Age: 79 yrs Sex: Female : 1945 Arrival Date: 03/21/2025 Time: 07:53 Bed 19 Private MD: Diagnosis: Abdominal tenderness;Anemia, unspecified;GI Bleed/ Gastrointestinal hemorrhage, unspecified-lower;Constipation, unspecified Presentation: 03/21 08:11 Chief complaint: Patient's son or daughter states: pt woke her up with heavy vaginal iw bleeding, blood was covering her legs. Coronavirus screen: At this time, the client does not indicate any symptoms associated with coronavirus-19. Ebola Screen: No symptoms or risks identified at this time. Initial Sepsis Screen: Does the patient meet any 2 criteria? No. Patient's initial sepsis screen is negative. Does the patient have a suspected source of infection? No. Patient's initial sepsis screen is negative. Risk Assessment: Do you want to hurt yourself or someone else? Patient reports no desire to harm self or others. Onset of symptoms was March 21, 2025. 08:11 Method Of Arrival: EMS: [facility] iw 08:11 Acuity: ALYSE 3 iw Historical: - Allergies: 08:12 NKA; iw - PMHx: 08:12 Arthritis; Chronic pain; Dementia; Diabetes - NIDDM; Hypertension; iw 08:14 Cerebrovascular accident; iw - PSHx: 08:12 Cholecystectomy; iw - Immunization history:: Adult Immunizations unknown. - Infectious Disease History:: Denies. - Social history:: Smoking status: Patient denies any tobacco usage or history of. Screenin:15 [facility] ED Fall Risk Assessment (Adult) History of falling in the last 3 months, ld1 including since admission No falls in past 3 months (0 pts) Confusion or Disorientation No (0 pts) Intoxicated or Sedated No (0 pts) Impaired Gait No (0 pts) Mobility Assist Device Used No (0 pt) Altered Elimination No (0 pt) Score/Fall Risk Level 0 - 2 = Low Risk Oriented to surroundings, Hourly rounding (assess needs \T\ fall precautionary measures) done. Abuse screen: Denies threats or abuse. Denies injuries from another. Nutritional screening: No deficits noted. Tuberculosis screening: No symptoms or risk factors identified. Assessment: 09:15 General: Appears in no apparent distress. uncomfortable, Behavior is calm, cooperative, ld1 appropriate for age. Pain: Denies pain. Neuro: Level of Consciousness is awake, alert, obeys commands, Oriented to person, place, time, situation. Cardiovascular: Capillary refill < 3 seconds Patient's skin is warm and dry. Respiratory: Airway is patent Respiratory effort is even, unlabored. GI: Abdomen is round non-distended, Rectal exam: Bleeding noted. : Urine is clear, Reports vaginal bleeding that is. EENT: No signs and/or symptoms were reported regarding the EENT system. Derm: No signs and/or symptoms reported regarding the dermatologic system. Musculoskeletal: No signs and/or symptoms reported regarding the musculoskeletal system. 10:27 Reassessment: Patient appears in no apparent distress at this time. No changes from ld1 previously documented assessment. Patient and/or family updated on plan of care and expected duration. Pain level reassessed. Patient is alert, oriented x 3, equal unlabored respirations, skin warm/dry/pink. 12:25 Reassessment: Patient appears in no apparent distress at this time. No changes from ld1 previously documented assessment. Patient and/or family updated on plan of care and expected duration. Pain level reassessed. Patient is alert, oriented x 3, equal unlabored respirations, skin warm/dry/pink. Vital Signs: 08:11 BP 145 / 59; Pulse 74; Resp 16; Temp 98.1; Pulse Ox 99% on R/A; Pain 8/10; iw 09:15 BP 168 / 55; Pulse 75; Resp 18; Pulse Ox 97% on R/A; ld1 10:27 BP 148 / 116; Pulse 76; Resp 18; Pulse Ox 98% on R/A; ld1 11:25 BP 142 / 63; Pulse 66; Resp 18; Pulse Ox 100% on R/A; ld1 12:25 BP 139 / 72; Pulse 64; Resp 18; Pulse Ox 100% on R/A; ld1 08:11 Pain Scale: Adult iw ED Course: 07:54 Patient arrived in ED. iw 07:59 Kenny Nunez MD is Attending Physician. juen 08:12 Triage completed. iw 08:13 Arm band placed on. iw 08:50 Inserted saline lock: 18 gauge in right EJ, using aseptic technique. Blood collected. iw Flushed with 10 mL NS inserted by Dr. Nunez. 08:51 Type And Screen Sent. ld1 08:51 CBC with Diff Sent. ld1 08:51 CMP Sent. ld1 08:51 Lipase Sent. ld1 09:00 Straight cath inserted, using sterile technique, 16 Fr. Specimen obtained. Returned iw clear yellow urine. Patient tolerated well. 09:01 Assist provider with pelvic exam: Set up pelvic tray. Performed by Kenny Nunez MD iw Patient tolerated well. Served as a channel account manager during rectal exam. 09:03 Brianna Heredia, RN is Primary Nurse. ld1 09:03 UA Rfx Lukasz Cult if indicated Sent. ld1 09:03 Type And Screen Sent. ld1 09:04 Lipase Sent. ld1 09:04 CMP Sent. ld1 09:15 Patient has correct armband on for positive identification. Placed in gown. Bed in low ld1 position. Call light in reach. Side rails up X2. airline stewardess on. Pulse ox on. NIBP on. Door closed. Noise minimized. Warm blanket given. Cleaned of incontinence. Linen changed. 09:15 Purewick applied to patient. ld1 09:46 Maty Betancourt MD is Hospitalizing Provider. [facility] 09:47 CT Abd/Pelvis - IV Contrast Only In Process Unspecified. EDMS 12:25 Patient admitted, IV remains in place. ld1 Administered Medications: 09:03 Drug: Famotidine IVP 20 mg IVP once; dilute with 10 mL 0.9% NaCl; give over 2 minutes ld1 Route: IVP; Site: right jugular; 10:08 Follow up: Response: No adverse reaction ld1 09:03 Drug: NS 0.9% IV 1000 ml IV at 1 bolus Per protocol; to be given as a bolus over 60 ld1 minutes Route: IV; Rate: 1 bolus; Site: right jugular; 10:08 Follow up: Response: No adverse reaction; IV Status: Completed infusion; IV Intake: ld1 1000ml 09:03 Drug: Ciprofloxacin IVPB 400 mg 200 ml IVPB once over 60 mins Volume: 200 ml; Route: ld1 IVPB; Infused Over: 60 mins; Site: right jugular; 10:08 Follow up: Response: No adverse reaction; IV Status: Completed infusion; IV Intake: ld1 200ml 09:04 Drug: Ondansetron IVP 4 mg IVP once; over 2 minutes Route: IVP; Site: right jugular; ld1 10:08 Follow up: Response: No adverse reaction ld1 09:15 Drug: metroNIDAZOLE IVPB 500 mg 100 ml IVPB at 200 ml/hr once over 30 mins Volume: 100 ld1 ml; Route: IVPB; Rate: 200 ml/hr; Infused Over: 30 mins; Site: right jugular; 10:09 Follow up: Response: No adverse reaction; IV Status: Completed infusion; IV Intake: ld1 100ml 10:07 Drug: Pantoprazole IVP 40 mg IVP once Route: IVP; Site: right jugular; ld1 Medication: 09:15 VIS not applicable for this client. ld1 Intake: 10:08 IV: 1000ml; Total: 1000ml. ld1 10:08 IV: 200ml; Total: 1200ml. ld1 10:09 IV: 100ml; Total: 1300ml. ld1 Outcome: 09:48 Decision to Hospitalize by Provider. june 12:25 Admitted to Med/surg accompanied by tech, via stretcher, room 408, ld1 12:25 Condition: stable 12:25 Instructed on the need for admit, 12:25 Patient left the ED. ld1 Signatures: Dispatcher [employer] Kenny Goldman MD MD cha Williams, Irene, Brianna Finn RN, RN RN ld1
--- NOTE | 2025-03-21 09:49 | EDPHYS ---
Physician Documentation [facility] Name: Meredith King Age: 79 yrs Sex: Female : 1945 Arrival Date: 03/21/2025 Time: 07:53 Bed 19 Private MD: ED Physician Kenny Nunez HPI: 03/21 09:07 This 79 yrs old Black Female presents to ER via EMS with complaints of Vaginal Bleeding.june 09:07 The patient presents with vaginal bleeding that is moderate. Onset: The june symptoms/episode began/occurred 2 day(s) ago. Historical: - Allergies: 08:12 NKA; iw - PMHx: 08:12 Arthritis; Chronic pain; Dementia; Diabetes - NIDDM; Hypertension; iw 08:14 Cerebrovascular accident; iw - PSHx: 08:12 Cholecystectomy; iw - Immunization history:: Adult Immunizations unknown. - Infectious Disease History:: Denies. - Social history:: Smoking status: Patient denies any tobacco usage or history of. ROS: 09:08 Constitutional: Negative for fever, chills, and weight loss, Eyes: Negative for injury, june pain, redness, and discharge, ENT: Negative for injury, pain, and discharge, Neck: Negative for injury, pain, and swelling, Cardiovascular: Negative for chest pain, palpitations, and edema, Respiratory: Negative for shortness of breath, cough, wheezing, and pleuritic chest pain, Back: Negative for injury and pain, : Negative for injury, bleeding, discharge, and swelling, MS/Extremity: Negative for injury and deformity, Skin: Negative for injury, rash, and discoloration, Neuro: Negative for headache, weakness, numbness, tingling, and seizure, Psych: Negative for depression, anxiety, suicide ideation, homicidal ideation, and hallucinations, Allergy/Immunology: Negative for hives, rash, and allergies, Endocrine: Negative for neck swelling, polydipsia, polyuria, polyphagia, and marked weight changes, Hematologic/Lymphatic: Negative for swollen nodes, abnormal bleeding, and unusual bruising, 09:08 Abdomen/GI: Positive for abdominal pain, rectal bleeding, of the suprapubic area, right lower quadrant and left lower quadrant, Exam: 09:08 Constitutional: This is a well developed, well nourished patient who is awake, alert, june and in no acute distress. Head/Face: Normocephalic, atraumatic. Eyes: Pupils equal round and reactive to light, extra-ocular motions intact. Lids and lashes normal. Conjunctiva and sclera are non-icteric and not injected. Cornea within normal limits. Periorbital areas with no swelling, redness, or edema. ENT: Nares patent. No nasal discharge, no septal abnormalities noted. Tympanic membranes are normal and external auditory canals are clear. Oropharynx with no redness, swelling, or masses, exudates, or evidence of obstruction, uvula midline. Mucous membranes moist. Neck: Trachea midline, no thyromegaly or masses palpated, and no cervical lymphadenopathy. Supple, full range of motion without nuchal rigidity, or vertebral point tenderness. No Meningismus. Chest/axilla: Normal chest wall appearance and motion. Nontender with no deformity. No lesions are appreciated. Cardiovascular: Regular rate and rhythm with a normal S1 and S2. No gallops, murmurs, or rubs. Normal PMI, no JVD. No pulse deficits. Respiratory: Lungs have equal breath sounds bilaterally, clear to auscultation and percussion. No rales, rhonchi or wheezes noted. No increased work of breathing, no retractions or nasal flaring. Back: No spinal tenderness. No costovertebral tenderness. Full range of motion. Female : Normal external genitalia. Skin: Warm, dry with normal turgor. Normal color with no rashes, no lesions, and no evidence of cellulitis. MS/ Extremity: Pulses equal, no cyanosis. Neurovascular intact. Full, normal range of motion., bilateral aka Neuro: Awake and alert, GCS 15, oriented to person, place, time, and situation. Cranial nerves II-XII grossly intact. Motor strength 5/5 in all extremities. Sensory grossly intact. Cerebellar exam normal. Normal gait. Psych: Awake, alert, with orientation to person, place and time. Behavior, mood, and affect are within normal limits. 09:08 Abdomen/GI: Inspection: abdomen appears normal, Bowel sounds: normal, Palpation: moderate abdominal tenderness, in the suprapubic area, right lower quadrant and left lower quadrant, Liver: no appreciated palpable abnormalities, Hernia: not appreciated, :08 Back: Exam negative for acute changes, : ECG was reviewed by the Attending Physician. [facility] 09:09 Abdomen/GI: Rectal exam: Stool: grossly bloody, hemorrhoid(s), are not appreciated, mass, is not appreciated, swelling, is not appreciated, tenderness, is not appreciated, fecal impaction, is not appreciated, 10:11 ECG was reviewed by the Attending Physician. [facility] Vital Signs: 08:11 BP 145 / 59; Pulse 74; Resp 16; Temp 98.1; Pulse Ox 99% on R/A; Pain 8/10; iw 09:15 BP 168 / 55; Pulse 75; Resp 18; Pulse Ox 97% on R/A; ld1 10:27 BP 148 / 116; Pulse 76; Resp 18; Pulse Ox 98% on R/A; ld1 11:25 BP 142 / 63; Pulse 66; Resp 18; Pulse Ox 100% on R/A; ld1 12:25 BP 139 / 72; Pulse 64; Resp 18; Pulse Ox 100% on R/A; ld1 08:11 Pain Scale: Adult iw Procedures: 09:28 Peripheral line: by aseptic technique a peripheral line was placed in the right [facility] external jugular vein. MDM: 07:59 Medical Screening Exam initiated [facility] 09:10 Differential diagnosis: Neoplasm nonspecific abdominal pain, non-specific abd pain, [facility] pancreatitis, Pyelonephritis, Ureterolithiasis, urinary tract infection. Data reviewed: vital signs, nurses notes, lab test result(s), EKG, radiologic studies, CT scan, plain films. Consideration of Admission/Observation Patient was admitted/placed on observation. Escalation of care including admission/observation considered. I considered the following discharge prescriptions or medication management in the emergency department Medications were administered in the Emergency Department. See MAR. Independent interpretation of the following test(s) in the Emergency Department Radiology Department Ultrasound: My interpretation is no abd usg. 03/21 08:00 Order name: CBC with Diff; Complete Time: 09:20 [facility] 03/21 08:00 Order name: CMP; Complete Time: 09:20 [facility] 03/21 08:00 Order name: Lipase; Complete Time: 09:20 [facility] 03/21 08:00 Order name: UA Rfx Lukasz Cult if indicated; Complete Time: 09:20 [facility] 03/21 08:26 Order name: Type And Screen; Complete Time: 09:43 [facility] 03/21 10:00 Order name: CBC with Automated Diff EDMS 03/21 10:54 Order name: Basic Metabolic Panel EDMS 03/21 10:54 Order name: Basic Metabolic Panel EDMS 03/21 10:54 Order name: Basic Metabolic Panel EDMS 03/21 10:54 Order name: Basic Metabolic Panel EDMS 03/21 10:54 Order name: CBC with Automated Diff EDMS 03/21 10:54 Order name: CBC with Automated Diff EDMS 03/21 10:54 Order name: CBC with Automated Diff EDMS 03/21 10:54 Order name: CBC with Automated Diff EDMS 03/21 10:54 Order name: Hemoglobin EDMS 03/21 10:54 Order name: Hemoglobin EDMS 03/21 10:54 Order name: Hemoglobin EDMS 03/21 08:00 Order name: CT Abd/Pelvis - IV Contrast Only; Complete Time: 09:55 june 03/21 08:58 Order name: EKG; Complete Time: 08:58 june 03/21 08:00 Order name: IV Saline Lock; Complete Time: 08:51 june 03/21 08:00 Order name: Labs collected and sent; Complete Time: 08:51 june 03/21 08:58 Order name: EKG - Nurse/Tech; Complete Time: 10:08 [facility] EC:11 Rate is 69 beats/min. Rhythm is regular. QRS [place] is Normal. [place] interval is normal. QRS june interval is normal. QT interval is normal. No Q waves. T waves are Normal. No ST changes noted. Clinical impression: NSR w/ Non-specific ST/T Changes and No evidence of ischemia. Interpreted by me. Reviewed by me. Administered Medications: 09:03 Drug: Famotidine IVP 20 mg IVP once; dilute with 10 mL 0.9% NaCl; give over 2 minutes ld1 Route: IVP; Site: right jugular; 10:08 Follow up: Response: No adverse reaction ld1 09:03 Drug: NS 0.9% IV 1000 ml IV at 1 bolus Per protocol; to be given as a bolus over 60 ld1 minutes Route: IV; Rate: 1 bolus; Site: right jugular; 10:08 Follow up: Response: No adverse reaction; IV Status: Completed infusion; IV Intake: ld1 1000ml 09:03 Drug: Ciprofloxacin IVPB 400 mg 200 ml IVPB once over 60 mins Volume: 200 ml; Route: ld1 IVPB; Infused Over: 60 mins; Site: right jugular; 10:08 Follow up: Response: No adverse reaction; IV Status: Completed infusion; IV Intake: ld1 200ml 09:04 Drug: Ondansetron IVP 4 mg IVP once; over 2 minutes Route: IVP; Site: right jugular; ld1 10:08 Follow up: Response: No adverse reaction ld1 09:15 Drug: metroNIDAZOLE IVPB 500 mg 100 ml IVPB at 200 ml/hr once over 30 mins Volume: 100 ld1 ml; Route: IVPB; Rate: 200 ml/hr; Infused Over: 30 mins; Site: right jugular; 10:09 Follow up: Response: No adverse reaction; IV Status: Completed infusion; IV Intake: ld1 100ml 10:07 Drug: Pantoprazole IVP 40 mg IVP once Route: IVP; Site: right jugular; ld1 Disposition Summary: 03/21/25 09:48 Hospitalization Ordered Notes: Hospitalization Status: Inpatient Admission june Provider: Maty Betancorut cha Location: Telemetry/MedSurg (Inpatient) june Condition: Fair june Problem: new june Symptoms: have improved june Bed/Room Type: Standard june Room Assignment: 408(03/21/25 11:36) em1 Diagnosis - Abdominal tenderness june - Anemia, unspecified june - GI Bleed/ Gastrointestinal hemorrhage, unspecified - lower june - Constipation, unspecified june Forms: - Medication Reconciliation Form june - SBAR form june - Leadership Thank You Letter june Signatures: Dispatcher [employer] EDKenny Solorzano MD MD cha Williams, Irene, RN RN iw Martinez, Eric em1 Miko Dao FNP-C DONOR RECRU[facility]1 Brianna Heredia RN RN ld1 Corrections: (The following items were deleted from the chart) 11: 09:48 june em1 11:36 11:09 427 em1 em1
--- NOTE | 2025-03-21 09:55 | RAD REPORT ---
EXAMINATION: CT ABDOMEN AND PELVIS WITH CONTRAST CLINICAL INDICATION: Abd pain;Lower GI bleed TECHNIQUE: CT abdomen and pelvis was performed, after the administration of IV contrast, [facility]. Axial, sagittal and coronal reconstructions were obtained. One or more of the following dose reduction techniques were used: Automated exposure control, adjustment of the mA and k V according to patient size, and iterative reconstruction. Unless otherwise specified, incidental findings do not require dedicated imaging follow-up. COMPARISON: 08/17/2023 FINDINGS: LOWER CHEST: The visualized lung bases are clear. LIVER: Mild fatty liver is present. No focal lesion or biliary dilatation is seen. Cholecystectomy clips. SPLEEN: Normal size. No focal lesion. PANCREAS: No mass, ductal dilation, or pedro-pancreatic fluid. ADRENALS: 10 mm nodule seen lateral left adrenal gland, probably benign adenoma. KIDNEYS: Normal size and contour. No hydronephrosis. Small right renal cyst. GASTROINTESTINAL TRACT: No evidence of free air, significant intra-abdominal free fluid, bowel obstru ction or abscess. There is significant stool present throughout the colon with advanced diverticulosis coli. APPENDIX: Appendix not visualized, but no inflammatory changes in region of appendix. LYMPH NODES: No lymphadenopathy. MUSCULOSKELETAL: Moderate lower lumbar degenerative changes. Evidence of prior fusion seen at L3-5. ADDITIONAL FINDINGS: Atrophic uterus with small amount of air present potentially in the endometrium. IMPRESSION: Advanced stool retention throughout the colon with diverticulosis coli present.
[2025-03-21] MEDS ORDERED: PANTOPRAZOLE 40 MG INJ ONE (09:56)
[2025-03-21] MEDS ORDERED: ACETAMINOPHEN 325 MG TABLET PO PRN (10:50)
--- NOTE | 2025-03-21 11:09 | P.HP ---
Certification for Inpatient Patient admitted to: Observation With expected LOS: <2 Midnights Patient will require the following post-hospital care: None Practitioner: I am a practitioner with admitting privileges, knowledge of patient current condition, hospital course, and medical plan of care. Services: Services provided to patient in accordance with Admission requirements found in Title 42 Section 412.3 of the Code of Federal Regulations Patient History Date of Service: 03/21/25 Reason for admission: Hematochezia History of Present Illness: 79-year-old female with history of hypertension, ischemic CVA, dementia presents to the emergency department for bright red blood per rectum. Her family reports that she wears a brief at home and when she stood up today blood came out of her brief, they are unsure about where it was coming from and therefore brought her into the emergency department as they are concerned about the volume of blood. Patient was evaluated in the emergency department her hemoglobin was 9.9, most recently it was 11.1 in 2022 although she has had significant anemia in the past her chemistry was unremarkable ED provider performed pelvic exam, got a cath urine and did a rectal exam and determined the blood was coming from her rectum. CT of the abdomen pelvis with IV contrast was performed which showed diverticulosis without acute diverticulitis and advanced stool retention throughout the colon. ED provider discussed case with general surgery who has the ability to perform colonoscopies and determine if the patient can be managed at our facility, general surgery was agreeable to consult and saw the patient at bedside. At home patient does take a baby aspirin daily but no other blood thinners Allergies No Known Drug Allergies Allergy (Verified 04/09/15 13:52) Unknown No Known Allergies Allergy (Uncoded 05/07/16 00:50) Unknown Home Medications: Tramadol HCl [Ultram] 100 mg PO BID 01/11/17 Doxepin HCl [Silenor] 1 tab PO DAILY 02/07/19 Ferrous Sulfate [Iron] 325 mg PO BID #60 tablet 02/07/19 Fluticasone/Vilanterol [Breo Ellipta 200-25 Mcg Inhalr] 1 puff IH BID 02/07/19 LORazepam [Ativan*] 0.5 mg PO DAILY PRN 02/07/19 Losartan Potassium [Cozaar*] 50 mg PO DAILY #30 tablet 02/07/19 Nebivolol HCl [Bystolic*] 10 mg PO DAILY #60 tab 02/07/19 Pantoprazole Sodium 40 mg PO DAILY 02/07/19 Sumatriptan [Imitrex*] 50 mg PO PRN PRN 02/07/19 glyBURIDE [Glyburide] 2.5 mg PO BID #30 tablet 02/07/19 - Past Medical/Surgical History Diabetic: Yes -: Diabetes mellitus type 2 -: Hypertension -: COPD -: Osteoarthritis -: Depression with anxiety -: Diabetic neuropathy -: Anemia -: Chronic pain -: Dementia -: CVA -: Cholecystectomy -: Appendectomy -: Knee surgery Psychosocial/ Personal History: Her son lives with her at home. She is a . She has 3 children. - Social History Alcohol use: No CD- Drugs: No Caffeine use: Yes Review of Systems 10-point ROS is otherwise unremarkable Gastrointestinal: Abdominal Pain, Hematochezia Physical Examination - Physical Exam General: Alert, In no apparent distress, Oriented x3 HEENT: Atraumatic, PERRLA, EOMI Neck: Supple, 2+ carotid pulse no bruit, No LAD Respiratory: Clear to auscultation bilaterally, Normal air movement Cardiovascular: Regular rate/rhythm, Normal S1 S2 Gastrointestinal: Normal bowel sounds, Tenderness (Mild epigastric abdominal tenderness) Musculoskeletal: No tenderness Integumentary: No rashes Neurological: Normal speech, Normal strength at 5/5 x4 extr, Normal affect - Studies Laboratory Data (last 24 hrs) 03/21/25 03/21/25 08:47 08:47 WBC 8.50 Hgb 9.9 L Hct 28.7 L Plt Count 203 Sodium 140 Potassium 4.2 BUN 28 H Creatinine 0.75 Glucose 106 Total Bilirubin 0.3 AST 23 ALT 30 Alkaline Phosphatase 63 Lipase 11 L Assessment and Plan - Plan Assessment: Hematochezia Acute blood loss anemia Diabetes mellitus type [id number] Hypertension Dementia COPD Plan: Hematochezia Acute blood loss anemia Seen by general surgery Clear liquids for now Monitor H/H throughout the day Hold aspirin Last colonoscopy around 10 years ago History of diverticulosis, no signs of diverticulitis or active bleeding on CT Diabetes mellitus type [id number] ACHS Accu-Chek, sliding scale insulin Hypertension Dementia COPD Resume home medications DVT PPX: SCDs full code Code status: Discharge Plan: Home Plan to discharge in: 24 Hours - Advance Directives Does patient have a Living Will: No Does patient have a Durable POA for Healthcare: No - Code Status/Comfort Care Code Status Assessed: Yes (Full code) Critical Care: No Time Spent Managing Pts Care (In Minutes): 65
[2025-03-21 14:10] VITALS: BMI 30.9
[2025-03-21] MEDS: MORPHINE 2 MG/ML SYR IV PRN (14:25)
--- NOTE | 2025-03-21 15:36 | CON ---
Date of Consultation: 03/21/2025 Brief History Of Present Illness: The patient is an 79-year-old female with a history of CVA, hypert ension, diabetes, who presents this morning after being brought to the hospital by family members, wh en a significant amount of blood was noted in her undergarments from possible gastrointestinal versus vaginal source. The patient's family originally thought there was a vaginal source, but then later believed that it was likely coming from her rectum. She has had a history of diverticulosis in the p ast. Last colonoscopy was greater than 10 years ago. She cannot recall the provider. She currently has no significant pain or other concerns or other issues. She is unaware if she has hemorrhoids. The patient is accompanied by family members. She has no chest pain, no shortness of breath, or othe r symptoms at this time. Past Medical History: Significant for diabetes, hypertension, COPD, osteoarthritis, depression, anxi ety, diabetic neuropathy, anemia, chronic pain, dementia, CVA. Past Surgical History: Includes cholecystectomy, appendectomy, temporal artery biopsy, knee surgerie s. Social History: She lives at home with her son, , 3 children. No alcohol, smoking, or recrea tional drug use noted. Allergies: NO KNOWN DRUG ALLERGIES. Home Medications: Include Ultram, doxepin, iron pill, Breo Ellipta, Ativan, Cozaar, Bystolic, Proton ix, Imitrex, glyburide, and aspirin. Review of Systems: A 10-point review of systems other than HPI, denies. Physical Examination: General: At the time of my examination, she is awake, alert, oriented. Psychiatric: She is appropriate and conversive. HEENT: She is normocephalic. Sclerae anicteric. Nares are moist. Oropharynx clear. Neck: Supple without JVD. Chest: Normal to expansion and excursion. Cardiovascular: Regular rate and rhythm. Pulmonary: Clear to auscultation bilaterally. Abdomen: Soft, nontender. No blood appreciated on rectal or perineal visualization. extremities: No clubbing, cyanosis, edema. Skin: Warm and dry. Laboratory Data: Revealed a white blood cell count of 8.5, hemoglobin is 9.9, hematocrit 28.7, plate let count was 203. Her sodium 140, potassium 4.2, chloride 109, carbon dioxide 26, BUN 28, creatinin e 0.7, glucose is 106, calcium 9.0, total bilirubin 0.3, AST 23, ALT 30, alkaline phosphatase is 63, lipase is 11. She had imaging performed, which included a CT scan of the abdomen and pelvis, marc garner read as advanced stool retention throughout the colon with diverticulosis coli present. Addition al findings include atrophic uterus with small amount of present potentially in the endome trium. Mild fatty liver is present. Assessment And Plan: This is an 79-year-old woman, who comes in with possible gastrointestinal bleed ing of uncertain etiology in origin. 1. IV fluids. 2. Serial abdominal exams. 3. Continue medical management per primary team. 4. I have discussed the case and asked the patient if she would like to see previous surgeon, who was involved in her care. However, patient's family stated they would prefer to use me as a provider to day. As such, I will continue providing care for the patient during this admission. I have explaine d to the patient will likely need a colonoscopy in the near future depending on her response to treat ment. If she has additional GI bleeding, we will address those concerns based on the amount of blood loss and hemodynamic stability of this situation. The patient will need a colonoscopy as described above at some point in the future. 5. Continue serial hemoglobin checks and evaluate for ongoing rectal bleeding. 6. I have explained the risks, benefits, and alternatives to the patient and her family. They displayed understanding of above stated plan and agreed to proceed as i ndicated. STEVE/ESSIE Voice ID: [id number] Report ID: [id number]
[2025-03-21 16:33] LABS: Absolute Eosinophils 0.1 K/uL (0-0.5); Absolute Lymphocytes (CBC) 1.8 K/uL (0.7-4.9); Absolute Monocytes 0.6 K/uL (0.1-1.3); Absolute Neutrophil 3.9 K/uL (1.8-8.0); Basophils % 0.6 % (0-1.3); Eosinophils % 1.8 % (0-4.4); Hematocrit 25.9 % (36.0-45.0); Hemoglobin 9.1 g/dL (12.0-15.0); Lymphocytes % 28.5 % (15.3-44.8); MCH 32.6 pg (27.0-35.0); MCHC 35.2 g/dL (32.0-36.0); MCV 92.7 fL (80-100); MPV 8.2 fL (7.6-11.3); Neutrophils % 60.1 % (41.7-73.7); Platelets 168 thou/uL (152-406); Red Cell Distribution Width 14.7 % (12.1-15.2)
[2025-03-21] MEDS: AMLODIPINE 10 MG TAB PO SCH (20:28)
[2025-03-21] MEDS: carvediloL 12.5 MG TAB PO SCH (20:28)
[2025-03-21] MEDS: HYDRALAZINE HCL 25 MG TABLET PO SCH (20:28)
[2025-03-21] MEDS: ATORVASTATIN 40 MG TAB PO SCH (20:28)
[2025-03-22 05:23] LABS: Absolute Eosinophils 0.2 K/uL (0-0.5); Absolute Lymphocytes (CBC) 1.8 K/uL (0.7-4.9); Absolute Monocytes 0.5 K/uL (0.1-1.3); Absolute Neutrophil 2.9 K/uL (1.8-8.0); Basophils % 0.7 % (0-1.3); Eosinophils % 4.1 % (0-4.4); Hematocrit 23.9 % (36.0-45.0); Hemoglobin 8.2 g/dL (12.0-15.0); Lymphocytes % 33.3 % (15.3-44.8); MCH 32.1 pg (27.0-35.0); MCHC 34.6 g/dL (32.0-36.0); MCV 92.9 fL (80-100); MPV 8.1 fL (7.6-11.3); Monocytes % 9.5 % (3.3-12.3); Neutrophils % 52.4 % (41.7-73.7); Nucleated Red Blood Cells % 0.1 % (0-0); Platelets 177 thou/uL (152-406); RBC Red Blood Cell Count 2.57 M/uL (3.86-4.86); Red Cell Distribution Width 14.9 % (12.1-15.2)
[2025-03-22 05:36] LABS: Anion Gap 8.4 mEq/L (5.0-15.0); Potassium 4.4 mEq/L (3.5-5.1)
[2025-03-22 07:04] VITALS: O2SAT 98
[2025-03-22] MEDS: ASPIRIN 81 MG CHEWABLE TABLET PO SCH (08:48)
[2025-03-22] MEDS: DULOXETINE 20 MG CAP PO SCH (08:49)
[2025-03-22] MEDS ORDERED: AMLODIPINE 10 MG TAB PO SCH (09:00)
--- NOTE | 2025-03-22 09:00 | P.PN ---
Date of Service: 03/22/25 Subjective: No acute events overnight No further bloody bowel movements although she has not yet had a bowel movement ROS: 10 point ROS as noted above, otherwise negative Physical exam GEN: Alert, pleasantly confused, NAD HEENT: Normal conjunctiva, sclera anicteric CV: Regular rate and rhythm, no edema Pulm: Nonlabored respirations on room air ABD: Soft, nontender, nondistended MSK: No joint tenderness Integumentary: No rashes Neuro: Normal speech, normal affect Vitals reviewed Assessment: Hematochezia Acute blood loss anemia Diabetes mellitus type [id number] Hypertension Dementia COPD Plan: Hematochezia Acute blood loss anemia Seen by general surgery Clear liquids for now Hemoglobin 9.9 on admission, down to 8.2 today Repeat this afternoon Monitor for BM, has not had one yet Hold aspirin Last colonoscopy around 10 years ago History of diverticulosis, no signs of diverticulitis or active bleeding on CT Diabetes mellitus type [id number]-[id number] ACHS Accu-Chek, sliding scale insulin Hypertension Dementia COPD Resume home medications DVT PPX: SCDs Code status:full code Time Spent Managing Pts Care (In Minutes): 35
--- NOTE | 2025-03-22 12:06 | EKG ---
Test Date: 2025-03-21 Test Time: 10:03:47 Census Clerk: RENEE MEASUREMENT RESULTS: Intervals: Rate: 69 CA: 158 QRSD: 76 QT: 410 QTc: 439 [place]: P: 68 CA: 158 QRS: 58 T: 64 INTERPRETIVE STATEMENTS: Normal sinus rhythm Normal ECG Compared to ECG 05/12/2023 16:08:44 Myocardial infarct finding no longer present Electronically Signed On 03-22-25 12:05:18 CDT by Rodolfo Wong
[2025-03-22 16:06] VITALS: BP 159/72; TEMP 98.4
--- NOTE | 2025-03-22 19:02 | P.DS ---
Admission Date: 03/21/25 Discharge Date: 03/22/25 Disposition: ROUTINE DISCHARGE Discharge Condition: GOOD Reason for Admission: Hematochezia Brief History of Present Illness: 79-year-old female with history of hypertension, ischemic CVA, dementia presents to the emergency department for bright red blood per rectum. Her family reports that she wears a brief at home and when she stood up today blood came out of her brief, they are unsure about where it was coming from and therefore brought her into the emergency department as they are concerned about the volume of blood. Patient was evaluated in the emergency department her hemoglobin was 9.9, most recently it was 11.1 in 2022 although she has had significant anemia in the past her chemistry was unremarkable ED provider performed pelvic exam, got a cath urine and did a rectal exam and determined the blood was coming from her rectum. CT of the abdomen pelvis with IV contrast was performed which showed diverticulosis without acute diverticulitis and advanced stool retention throughout the colon. ED provider discussed case with general surgery who has the ability to perform colonoscopies and determine if the patient can be managed at our facility, general surgery was agreeable to consult and saw the patient at bedside. At home patient does take a baby aspirin daily but no other blood thinners Hospital Course: Assessment: Hematochezia Acute blood loss anemia Diabetes mellitus type 2bbn-gfevbbb-fguwbgeeg Hypertension Dementia COPD Patient was admitted to the hospital for bright red blood per rectum. She had 1 episode prior to arriving to the hospital and has had no further episodes since then. Hemoglobin on admission was 9.9, I did trend down to 9.1 later yesterday afternoon and 8.2 this morning, recheck hemoglobin at noon today and it was 8.9. Patient is stable with no complaints, she was having some abdominal pain yesterday but this is improved. CT of the abdomen pelvis was performed yesterday while patient was in the emergency department which showed advanced lower tension throughout the colon with diverticulosis coli present. Family reports that patient last had a colonoscopy around 10 years ago, they were unsure who he was with. Patient was seen by general surgeryDr. Lincoln who recommends conservative management for now with plans for colonoscopy in 1 week with him outpatient. Recommend holding aspirin for 1 week until follow-up with general surgery. Continue other home medications as previously prescribed. Vital Signs/Physical Exam: Temp Pulse Resp BP Pulse Ox 98.4 F 68 16 159/72 H 98 03/22/25 16:00 03/22/25 16:00 03/22/25 16:00 03/22/25 16:00 03/22/25 16:00 General: Alert, In no apparent distress, Oriented x2 HEENT: Atraumatic, PERRLA Neck: Supple Respiratory: Normal air movement Cardiovascular: Regular rate/rhythm, Normal S1 S2 Gastrointestinal: Normal bowel sounds, No tenderness Musculoskeletal: No tenderness Integumentary: No rashes Neurological: Normal speech, Normal affect Laboratory Data at Discharge: WBC 5.50 thou/uL (4.3-10.9) 03/22/25 05:00 Hgb 8.9 g/dL (12.0-15.0) L D 03/22/25 11:46 Hct 23.9 % (36.0-45.0) L 03/22/25 05:00 Plt Count 177 thou/uL (152-406) 03/22/25 05:00 Sodium 140 mEq/L (136-145) 03/22/25 05:00 Potassium 4.4 mEq/L (3.5-5.1) 03/22/25 05:00 BUN 21 mg/dL (7-18) H 03/22/25 05:00 Creatinine 0.78 mg/dL (0.55-1.02) 03/22/25 05:00 Glucose 77 mg/dL (74-106) 03/22/25 05:00 Total Bilirubin 0.3 mg/dL (0.2-1.0) 03/21/25 08:47 AST 23 U/L (15-37) 03/21/25 08:47 ALT 30 U/L (13-56) 03/21/25 08:47 Alkaline Phosphatase 63 U/L (45-117) 03/21/25 08:47 Lipase 11 U/L (13-75) L 03/21/25 08:47 Home Medications: Amlodipine Besylate 10 mg PO DAILY 03/21/25 Aspirin 81 mg PO DAILY 03/21/25 Atorvastatin Calcium 40 mg PO BEDTIME 03/21/25 Benzonatate 100 mg PO QIDP PRN 03/21/25 Carvedilol [Coreg] 12.5 mg PO BID 03/21/25 Duloxetine [Cymbalta Dalayed Release Pellets] 20 mg PO DAILY 03/21/25 Hydralazine [Apresoline] 25 mg PO BID 03/21/25 Lidocaine 4% Patch [Lidoderm 5% Patch] 1 patch TD DAILY 03/21/25 Losartan Potassium [Cozaar] 100 mg PO DAILY 03/21/25 Metformin ER [Glucophage ER] 500 mg PO BID 03/21/25 Montelukast [Singulair] 10 mg PO DAILY 03/21/25 Multivit-Min/FA/Lycopen/Lutein [Centrum Silver Tablet] 1 each PO DAILY 03/21/25 Nystatin/Triamcin [Nystatin-Triamcinolone Ointm] 30 gm TP BID 03/21/25 Oxybutynin Chloride [Oxybutynin Chloride ER] 10 mg PO DAILY 03/21/25 Physician Discharge Instructions: Patient was admitted to the hospital for bright red blood per rectum. She had 1 episode prior to arriving to the hospital and has had no further episodes since then. Hemoglobin on admission was 9.9, I did trend down to 9.1 later yesterday afternoon and 8.2 this morning, recheck hemoglobin at noon today and it was 8.9. Patient is stable with no complaints, she was having some abdominal pain yesterday but this is improved. CT of the abdomen pelvis was performed yesterday while patient was in the emergency department which showed advanced lower tension throughout the colon with diverticulosis coli present. Family reports that patient last had a colonoscopy around 10 years ago, they were unsure who he was with. Patient was seen by general surgeryDrLivier Lincoln who recommends conservative management for now with plans for colonoscopy in 1 week with him outpatient. Recommend holding aspirin for 1 week until follow-up with general surgery. Continue other home medications as previously prescribed. Diet: [place] Activity: Fall precautions Followup: Quintin Lincoln MD [ACTIVE - CAN ADMIT] - 1 Week (call for appointment.) NONE,NONE [Primary Care Provider] - 1-2 Weeks (call for appointment.) Time spent managing pt's care (in minutes): 46
== END 2025-03-22 18:57 | disposition home or self-care (01) ==
LOC: ER 07:53 → ERHOLD 10:49 → 4TH 11:37
PROVIDERS: ADMIT Internal Medicine; ATTEND Internal Medicine
DX: K92.1 Melena (principal); I10 Essential (primary) hypertension; F03.90 Unspecified dementia, unspecified severity, without behavioral disturbance, psychotic disturbance, mood disturbance, and anxiety; D62 Acute posthemorrhagic anemia; E11.9 Type 2 diabetes mellitus without complications; J44.9 Chronic obstructive pulmonary disease, unspecified; M19.90 Unspecified osteoarthritis, unspecified site; F41.9 Anxiety disorder, unspecified; F32.A Depression, unspecified; E11.40 Type 2 diabetes mellitus with diabetic neuropathy, unspecified; K57.90 Diverticulosis of intestine, part unspecified, without perforation or abscess without bleeding; Z86.73 Personal history of transient ischemic attack (TIA), and cerebral infarction without residual deficits
CPT/HCPCS: 96365; 93005; 85025 ×3; 80048; 36415; 86900; 86850; 86901; 82947 ×6; 85018 ×2; 81003; 83690; 80053; 74177; 51702; 96375; 99285; Q9967; J2470; J2270 ×2; J2405; J0744; J7030; G0378 ×3